=== PATIENT | female | born 1945 | race Caucasian/White ===

== ENCOUNTER 2020-06-19 18:47 | Inpatient (IN) | payer MEDICARE ==
[~2020-06-19] VITALS: Ht 152.4 cm; Wt 60.3 kg
--- NOTE | 2020-06-19 19:05 | NUR ---
HALEY Cordoba from [facility] for low O2 84% on 4L. PT NONVERBAL WITH SOB. PLACED ON O2 15L NR, SAT 95%. PT SEEN & EVAL'D BY DR. STACY. PLACED ON SHEET HANGER, SR. WILL CONT TO MONITOR.
[2020-06-19 19:35] LABS: BASOPHILS % (AUTO) 0.3 % (0.0-2.0); EOSINOPHILS % (AUTO) 0.4 % (0.0-6.0); HEMATOCRIT 26 % (33-45); HEMOGLOBIN 8.3 g/dL (11.5-14.8); MEAN CORPUSCULAR HGB CONC 31 g/dl (31.0-36.0); MEAN CORPUSCULAR VOLUME 100 fL (82-100); MONOCYTES # (AUTO) 0.4 /CMM (0.1-1.30); MONOCYTES % (AUTO) 5.4 % (2.0-12.0); NEUTROPHILS # (AUTO) 6.7 /CMM (1.8-8.9); NEUTROPHILS % (AUTO) 81.9 % (43.0-81.0); PLATELET COUNT (AUTO) 137 /CMM (150-450); RED BLOOD CELL COUNT(AUTO) 2.64 MIL/uL (4.0-5.2); WHITE BLOOD COUNT (AUTO) 8.2 K/uL (4.3-11.0)
[2020-06-19 19:36] LABS: ABG BASE EXCESS -3.8 mmol/L; ABG OXYGEN SATURATION 88.2 % (92.0-98.5); ABG PCO2 49.5 mmHg (35.0-45.0); ABG PH 7.283 (7.350-7.450); AaDO2 597.5 mmHg; COHb 0.5 % (0.5-1.5); MetHb 0.7 % (0.0-1.5); O2Hb 87.1 % (94.0-97.0); SITE, ABG Right Radial; VENT MODE, BG 15L NRB
[2020-06-19 19:57] LABS: ALANINE AMINOTRANSFERASE 44 U/L (12-78); ALBUMIN 1.8 g/dL (3.4-5.0); ALKALINE PHOSPHATASE 414 U/L (46-116); ASPARTATE AMINOTRANSFERASE 56 U/L (15-37); B-TYPE NATRIURETIC PEPTIDE 21769 PG/ML (0-125); BILIRUBIN,TOTAL 0.3 mg/dL (0.2-1.0); CALCIUM, SERUM 8.1 mg/dL (8.5-10.1); CARBON DIOXIDE 25 mmol/L (21-32); CHLORIDE 113 mmol/L (98-107); CREATININE 2.2 mg/dL (0.6-1.3); GLUCOSE 131 mg/dL (74-106); SODIUM SERUM 144 mmol/L (136-145); TOTAL PROTEIN, SERUM 5.9 g/dL (6.4-8.2); UREA NITROGEN, BLOOD 70 mg/dL (7-18)
[2020-06-19 19:59] LABS: APPEARANCE,URINE Clear (CLEAR); BILIRUBIN,URINE Negative (NEGATIVE); BLOOD, URINE Large Ery/uL (NEGATIVE); COLOR,URINE Yellow (YELLOW); KETONES,URINE Negative (NEGATIVE); LEUKOCYTE ESTERASE ,URINE Trace (NEGATIVE); NITRITE, URINE Negative (NEGATIVE); PH,URINE 5.5 (5.0-8.0); PROTEIN,URINE >=300 mg/dl (NEGATIVE); UGLUCOSE Negative (NEGATIVE); UROBILINOGEN,URINE 0.2 EU/dL (0.2)
[2020-06-19 20:00] LABS: POTASSIUM 7.3 mmol/L (3.5-5.1)
[2020-06-19] MEDS ORDERED: DEXTROSE 50%-WATER 50 ML DISP.SYRIN IV ONE (20:00)
[2020-06-19] MEDS ORDERED: CALCIUM CHLORIDE 1,000 MG/10 ML DISP.SYRIN IV ONE ×2 (20:00→23:00)
[2020-06-19] MEDS ORDERED: INSULIN REGULAR, HUMAN 100 UNIT/ML 10 ML VIAL IV ONE (20:00)
[2020-06-19] MEDS ORDERED: SODIUM POLYSTYRENE SULFONATE 15 G/60 ML BOTTLE PO ONE (20:00)
[2020-06-19] MEDS ORDERED: ALBUTEROL FS 2.5 MG/3 ML VIAL.NEB NEB ONE (20:00)
[2020-06-19] MEDS ORDERED: FUROSEMIDE 40 MG/4 ML VIAL IV ONE (20:00)
[2020-06-19] MEDS ORDERED: methylPREDNISolone SOD SUCC 125 MG/2ML VIAL IV ONE (20:00)
[2020-06-19] MEDS ORDERED: methylPREDNISolone SOD SUCC 125 MG/2ML VIAL ONE (20:02)
[2020-06-19 20:10] LABS: BACTERIA,URINE Few /HPF (None Seen); RBC,URINE 21-50 /HPF (0-2); SQUAMOUS EPITHELIAL CELL,UR Few /HPF (None Seen)
[2020-06-19 20:11] LABS: CREATINE KINASE, TOTAL 62 U/L (26-192); FERRITIN 669 ng/mL (8-388)
[2020-06-19 20:14] LABS: C-REACTIVE PROTEIN 5.1 mg/dL (0.0-0.9)
[2020-06-19] MEDS ORDERED: FUROSEMIDE 20 MG/2 ML VIAL ONE (20:18)
[2020-06-19] MEDS ORDERED: CALCIUM CHLORIDE 1,000 MG/10 ML DISP.SYRIN ONE (20:18)
[2020-06-19] MEDS ORDERED: DEXTROSE 50%-WATER 50 ML DISP.SYRIN ONE (20:18)
[2020-06-19] MEDS ORDERED: SODIUM POLYSTYRENE SULFONATE 15 G/60 ML BOTTLE ONE (20:18)
[2020-06-19] MEDS ORDERED: INSULIN REGULAR, HUMAN 100 UNIT/ML 10 ML VIAL ONE (20:19)
[2020-06-19 20:20] LABS: D-DIMER 23.47 mg/L(FEU (0.17-0.50)
--- NOTE | 2020-06-19 20:33 | NUR ---
ER MD SPOKE TO DR. LAN REGARDING PT ADMISSION.
[2020-06-19] MEDS ORDERED: ALBUTEROL FS 2.5 MG/3 ML VIAL.NEB ONE (20:57)
--- NOTE | 2020-06-19 21:08 | NUR ---
REPORT GIVEN TO SHIRLEY HERNANDEZ FOR CHANEL.
[2020-06-19 22:00] VITALS: BP 134/75
[2020-06-19] MEDS ORDERED: ALBUTEROL FS 2.5 MG/0.5 ML VIAL.NEB NEB PRN (22:00)
[2020-06-19] MEDS ORDERED: MAG HYDROX/AL HYDROX/SIMETH 30 ML UDC PO PRN (22:00)
[2020-06-19] MEDS ORDERED: HYDROCODONE/APAP 5/325MG TABLET PO PRN (22:00)
[2020-06-19] MEDS ORDERED: IPRATROPIUM NEB FS 0.5 MG/2.5 ML AMPUL.NEB NEB PRN (22:00)
[2020-06-19] MEDS ORDERED: Z GUARD REMEDY 2 OZ OINT TP PRN (22:00)
[2020-06-19] MEDS ORDERED: MAGNESIUM HYDROXIDE 30 ML UDC PO PRN (22:00)
[2020-06-19] MEDS ORDERED: ACETAMINOPHEN 325 MG TABLET PO PRN (22:00)
[2020-06-19] MEDS ORDERED: ONDANSETRON HCL/PF 4 MG/2 ML VIAL IVP PRN (22:00)
[2020-06-19] MEDS ORDERED: ZOLPIDEM TARTRATE 5 MG TABLET PO PRN (22:00)
[2020-06-19 22:28] LABS: CALCIUM, SERUM 9.3 mg/dL (8.5-10.1); CARBON DIOXIDE 27 mmol/L (21-32); CHLORIDE 113 mmol/L (98-107); CREATININE 2.3 mg/dL (0.6-1.3); GLUCOSE 90 mg/dL (74-106); SODIUM SERUM 145 mmol/L (136-145); UREA NITROGEN, BLOOD 70 mg/dL (7-18)
[2020-06-19 22:33] LABS: POTASSIUM 6.7 mmol/L (3.5-5.1)
[2020-06-19] MEDS: FUROSEMIDE 40 MG/4 ML VIAL IV SCH (22:47)
[2020-06-19 23:00] VITALS: BP 158/90
[2020-06-19] MEDS ORDERED: DEXTROSE 50%-WATER 50 ML DISP.SYRIN IVP ONE (23:00)
[2020-06-19] MEDS ORDERED: SODIUM BICARBONATE SYR 50 MEQ/50 ML DISP.SYRIN IV ONE (23:00)
[2020-06-19] MEDS ORDERED: ALBUTEROL FS 2.5 MG/3 ML VIAL.NEB NEB SCH (23:00)
[2020-06-19] MEDS ORDERED: INSULIN REGULAR, HUMAN 100 UNIT/ML 3 ML VIAL IV ONE (23:00)
[2020-06-19] MEDS ORDERED: PANT40TA49 GT (23:22)
[2020-06-19] MEDS ORDERED: MULT-754 GT (23:22)
[2020-06-19] MEDS ORDERED: LISI10TA5 GT (23:22)
[2020-06-19] MEDS ORDERED: ASCO500C16 GT (23:22)
[2020-06-19] MEDS ORDERED: SOTA80TA GT (23:22)
[2020-06-19] MEDS ORDERED: ZINC1CAP3 GT (23:22)
--- NOTE | 2020-06-19 23:30 | NUR ---
RN NOTES 2132 PM - ADMITTED PATIENT FROM ER AWAKE ALERT X 1, CONFUSED. ABLE TO VERBALIZED NAME WITH O2 @ 12 LPM VIA NRB PLACED ON ISOLATION PRECAUTION DUE TO PENDING COVID PCR. SATURATION 92% CONNECTED TO TELE MONITOR REVEALS SR HR 72. AFEBRILE TEMP 97.8. SLIGHT SOB PRESENT, BILATERAL LUNG CRACKLES WITH WHEEZING NOTED. WITH GOOD RADIAL AND DORSALIS PEDIS PULSES. PATIENT HAS GT PATENCY CHECKED, WITH MINIMAL RESIDUAL. SKIN CHECKED DONE (PHOTO IN THE CHART) MEPILEX AND BARRIER CREAM APPLIED. IV SITE ON RFA AND LFA G 18 INTACT AND PATENT WITH GOOD BLD. RETURN. BLAKE CATH SECURED OFF FROM THE FLOOR. KEPT PT CLEAN AND DRY. 2252 PM - RECEIVED A CALL FROM LAB REGARDING CRITICAL VALUES OF POTASSIUM 6.[address] SPARKS FLAVOR TANK TENDER WITH NEW ORDER NOTED AND CARRIED OUT . 2324 PM - INFORMED MD THAT THE PATIENT BS 86 MG/DL AND IF HE STILL WANT TO GIVE REGULAR INSULIN. PER MD GIVE D50% FIRST BEFORE REGULAR INSULIN 10 UNITS. ACKNOWLEDGE ORDERS.
[2020-06-20] VITALS (24 sets, daily range): BP systolic 129–153; BP diastolic 37–96
[2020-06-20] MEDS: FUROSEMIDE 40 MG/4 ML VIAL IV SCH ×2 (01:41→05:13)
[2020-06-20 04:37] LABS: BASOPHILS % (AUTO) 0.1 % (0.0-2.0); HEMATOCRIT 28 % (33-45); HEMOGLOBIN 8.9 g/dL (11.5-14.8); LYMPHOCYTES # (AUTO) 0.5 /CMM (0.8-4.8); LYMPHOCYTES % (AUTO) 7.8 % (20.0-44.0); MEAN CORPUSCULAR HGB CONC 32 g/dl (31.0-36.0); MEAN CORPUSCULAR VOLUME 98 fL (82-100); MONOCYTES # (AUTO) 0.1 /CMM (0.1-1.30); MONOCYTES % (AUTO) 0.7 % (2.0-12.0); NEUTROPHILS # (AUTO) 6.4 /CMM (1.8-8.9); NEUTROPHILS % (AUTO) 91.4 % (43.0-81.0); PLATELET COUNT (AUTO) 121 /CMM (150-450); RED BLOOD CELL COUNT(AUTO) 2.87 MIL/uL (4.0-5.2)
--- NOTE | 2020-06-20 04:50 | NUR ---
RN NOTES NOTED PATIENT IS PULLING OUT TUBES AND IV LINES TRIED HOW MANY TIMES TO INSTRUCT PATIENT DUE TO MENTAL STATUS (CONFUSED) PATIENT IS UNABLE TO FOLLOW INSTRUCTION. RESTRAINT IN PLACED AND MD AWARE. WILL CONTINUE TO MONITOR.
[2020-06-20] MEDS: methylPREDNISolone SOD SUCC 40 MG/ML VIAL IV SCH ×3 (05:13→21:03)
[2020-06-20 05:24] LABS: B-TYPE NATRIURETIC PEPTIDE 28033 PG/ML (0-125); CALCIUM, SERUM 9.7 mg/dL (8.5-10.1); CARBON DIOXIDE 26 mmol/L (21-32); CHLORIDE 113 mmol/L (98-107); CREATININE 2.3 mg/dL (0.6-1.3); GLUCOSE 117 mg/dL (74-106); MAGNESIUM 2.2 mg/dL (1.8-2.4); PHOSPHORUS 5.9 mg/dL (2.5-4.9); SODIUM SERUM 148 mmol/L (136-145); UREA NITROGEN, BLOOD 70 mg/dL (7-18)
[2020-06-20 05:27] LABS: POTASSIUM 6.4 mmol/L (3.5-5.1)
[2020-06-20 05:28] LABS: CHOLESTEROL 98 mg/dL (<200); HDL CHOLESTEROL 46 mg/dL (40-60); LDL 45 mg/dL (0-99); THYROID STIMULATING HORMONE 6.328 uIU/mL (0.358-3.74); TRIGLYCERIDES 47 mg/dL (30-150)
[2020-06-20] MEDS ORDERED: Z GUARD REMEDY 2 OZ OINT TP PRN (07:00)
--- NOTE | 2020-06-20 07:12 | NUR ---
RN NOTES PATIENT ASLEEP AT THIS TIME, DENIES PAIN. O2 10 LPM VIA SIMPLE MASK TOLERATED WELL SATURATION 96%. AFEBRILE THROUGHOUT THE SHIFT. SR ON TELE MONITOR CONTINUE ON RESTRAINT, BLAKE CATH DRAINED VIA GRAVITY . TURN AND REPOSITION Q2H AND PRN PT COMFORTABLE. IV SITE INTACT AND PATENT. GT KEPT IN PLACED AND SECURED. KEPT PT CLEAN AND DRY. ENDORSED CONTINUITY OF CARE .
--- NOTE | 2020-06-20 07:15 | NUR ---
CRAS NOTES RECEIVED PATIENT AOX1 , CONFUSED , VERBAL BUT UNCLEAR , ON 10LPM MASK SPO2 OF 97% , NO SIGNS OF DISTRESS AT THIS TIME , SR 67 ON BEDSIDE MONITOR , GT PATENT AND INTACT CLAMPED , FC DRAINING VIA GRAVITY , BILATERAL SOFT WRIST RESTRAINS IN PLACE , PIV'S PATENT AND INTACT SL , ALL NEEDS ATTENDED, WILL CONTINUE TO MONITOR
[2020-06-20] MEDS ORDERED: PANTOPRAZOLE 40 MG TABLET.DR PO SCH (07:30)
--- NOTE | 2020-06-20 08:40 | NUR ---
SENIOR PRODUCT MANAGER NOTES SPOKE WITH DR BARRAGAN , DISCUSSED PT K OF 6.4 , MD AWARE , PER MD PT IS ON BUMEX DRIP ALREADY ,
[2020-06-20] MEDS: HEPARIN SODIUM, PORCINE 5000 UNITS/1 ML VIAL SQ SCH ×2 (08:51→21:05)
[2020-06-20] MEDS ORDERED: BUMETANIDE INJ 8 MG in IV NS 0.9% 48 ML IV ONE (09:00)
[2020-06-20] MEDS ORDERED: PANTOPRAZOLE 40 MG VIAL IV SCH (09:00)
[2020-06-20 09:20] LABS: THYROID STIMULATING HORMONE 0.02 uIU/mL (0.358-3.74)
--- NOTE | 2020-06-20 10:00 | NUR ---
NOCTURNIST PHYSICIAN NOTES SEEN AND EVALUATED BY DR FELIX, DISCUSSED LABS , CHEST XRAY , PENDING PCR RESULTS , ON 10LPM SIMPER MASK SPO2 OF 95% WITH PENDING ABG , AFEBRLE , VSS , ON 8MG BUMEX MD ROSY AWARE
[2020-06-20 10:20] LABS: ABG BASE EXCESS 0.6 mmol/L; ABG OXYGEN SATURATION 86.5 % (92.0-98.5); ABG PCO2 36.4 mmHg (35.0-45.0); ABG PH 7.446 (7.350-7.450); ABG PO2 52.8 mmHg (75.0-100.0); COHb 0.4 % (0.5-1.5); O2Hb 86.2 % (94.0-97.0); SITE, ABG Right Radial; VENT MODE, BG 10L SIMPLE MASK
--- NOTE | 2020-06-20 10:40 | NUR ---
RT PER DR FELIX PATIENT WAS PLACED ON HFNC 60L 95% KATTY WELL. MAINTAIN SPO2 ABOVE 92% Addendum: 06/20/20 at 1341 by ZENAIDA THORNTON RT Amended: Links added.
[2020-06-20 10:49] LABS: MAGNESIUM 2.1 mg/dL (1.8-2.4)
--- NOTE | 2020-06-20 10:52 | NUR ---
ACCESS DEVELOPER NOTES ABG RESULTS RELAYED BY TOMAS LR MD PUT PT ON HIGH FLOW NC RT AT BEDSIDE FOR HIGH FLOW NC , PT STABLE , SPO2 OF 100% WITH NO SIGNS OF DISTRESS
[2020-06-20] MEDS ORDERED: LEVOFLOXACIN 750 MG /D5W 150ML 150 ML IV SCH (11:00)
[2020-06-20] MEDS ORDERED: LEVOFLOXACIN 750 MG /D5W 150ML 150 ML IV ONE (11:30)
[2020-06-20] MEDS: IPRATROPIUM NEB FS 0.5 MG/2.5 ML AMPUL.NEB NEB SCH ×4 (11:30→23:30)
--- NOTE | 2020-06-20 13:53 | NUR ---
RT HHN TXS HELD PER POLICY WAITING ON COVID TEST RESULTS BEFORE AEROSOLIZED TX MAY BE GIVEN
[2020-06-20 16:32] LABS: APPEARANCE,URINE SL CLOUDY (CLEAR); BILIRUBIN,URINE NEGATIVE (NEGATIVE); BLOOD, URINE LARGE Ery/uL (NEGATIVE); COLOR,URINE YELLOW (YELLOW); KETONES,URINE NEGATIVE (NEGATIVE); LEUKOCYTE ESTERASE ,URINE TRACE (NEGATIVE); NITRITE, URINE POSITIVE (NEGATIVE); PH,URINE 5.5 (5.0-8.0); PROTEIN,URINE 100 mg/dl (NEGATIVE); UGLUCOSE NEGATIVE (NEGATIVE); UROBILINOGEN,URINE 0.2 EU/dL (0.2)
[2020-06-20] MEDS ORDERED: JEVITY 1.2 CAL 1,000 ML BOTTLE GT PRN (17:00)
[2020-06-20 17:08] LABS: CARBON DIOXIDE 25 mmol/L (21-32); GLUCOSE 121 mg/dL (74-106); UREA NITROGEN, BLOOD 75 mg/dL (7-18)
[2020-06-20 17:09] LABS: CREATININE, URINE 43.2 MG/DL (30.0-125.0); URINE TOTAL PROTEIN 134.8 mg/dL (0-11.9)
[2020-06-20 17:14] LABS: CHLORIDE 113 mmol/L (98-107); CREATININE 2.4 mg/dL (0.6-1.3); POTASSIUM 6.1 mmol/L (3.5-5.1); SODIUM SERUM 148 mmol/L (136-145)
--- NOTE | 2020-06-20 17:29 | NUR ---
TENTERING MACHINE FEEDER NOTES NOTIFIED DR STEWART REGARDING REPEAT BMP RESULTS , MD AWARE , NO NEW ORDERS RECEIVED
[2020-06-20 17:42] LABS: BACTERIA,URINE 4+ /HPF (None Seen); SQUAMOUS EPITHELIAL CELL,UR 0-2 /HPF (None Seen); YEAST,URINE Few /HPF (None Seen)
[2020-06-20 18:13] LABS: EOSINOPHIL,URINE None Seen
--- NOTE | 2020-06-20 20:00 | NUR ---
Received patient awake alert oriented x1 otherwise confused.SR 80's-90's.Normotensive. With edema on both hands and feet kept elevated on pillows.Received Bumex this morning. Respiration even and unlabored.Continue on HF 60L 95% saturation 100%.GT feeding in progress with HOB elevated.No residual noted.FC to gravity drainage with clear yellow urine. Turned and repositioned.Safety precaution maintained.Bed in lowest position,locked & alarm on.Side rails up x 2.Call light within easy reach.Bilateral soft wrist restraints on.Attempted to pull out tubes and IV when released.No distress noted.Continue monitoring.
[2020-06-21] VITALS (24 sets, daily range): BP systolic 144–172; BP diastolic 75–96
--- NOTE | 2020-06-21 | NUR ---
Patient resting.VS stable.Turned and repositioned.No distress noted.
--- NOTE | 2020-06-21 02:00 | NUR ---
Patient awake.Bed bath rendered and complete linens changed.Oral care done.Turned and repositioned.
[2020-06-21] MEDS: IPRATROPIUM NEB FS 0.5 MG/2.5 ML AMPUL.NEB NEB SCH ×6 (03:30→23:51)
[2020-06-21] MEDS: methylPREDNISolone SOD SUCC 40 MG/ML VIAL IV SCH ×3 (04:49→21:31)
[2020-06-21 05:11] LABS: HEMATOCRIT 25 % (33-45); HEMOGLOBIN 7.9 g/dL (11.5-14.8); LYMPHOCYTES # (AUTO) 0.3 /CMM (0.8-4.8); LYMPHOCYTES % (AUTO) 8.1 % (20.0-44.0); MEAN CORPUSCULAR HGB CONC 31 g/dl (31.0-36.0); MEAN CORPUSCULAR VOLUME 100 fL (82-100); MONOCYTES # (AUTO) 0.1 /CMM (0.1-1.30); MONOCYTES % (AUTO) 2.4 % (2.0-12.0); NEUTROPHILS # (AUTO) 3.8 /CMM (1.8-8.9); NEUTROPHILS % (AUTO) 89.5 % (43.0-81.0); PLATELET COUNT (AUTO) 125 /CMM (150-450); RED BLOOD CELL COUNT(AUTO) 2.52 MIL/uL (4.0-5.2); WHITE BLOOD COUNT (AUTO) 4.2 K/uL (4.3-11.0)
[2020-06-21 05:47] LABS: CREATINE KINASE, TOTAL 37 U/L (26-192)
[2020-06-21 05:50] LABS: ALANINE AMINOTRANSFERASE 38 U/L (12-78); ALBUMIN 1.6 g/dL (3.4-5.0); ALKALINE PHOSPHATASE 324 U/L (46-116); ASPARTATE AMINOTRANSFERASE 40 U/L (15-37); BILIRUBIN,TOTAL 0.2 mg/dL (0.2-1.0); CALCIUM, SERUM 8.2 mg/dL (8.5-10.1); CARBON DIOXIDE 25 mmol/L (21-32); CHLORIDE 113 mmol/L (98-107); CREATININE 2.7 mg/dL (0.6-1.3); GLUCOSE 178 mg/dL (74-106); MAGNESIUM 2.1 mg/dL (1.8-2.4); PHOSPHORUS 6.8 mg/dL (2.5-4.9); POTASSIUM 5.5 mmol/L (3.5-5.1); SODIUM SERUM 148 mmol/L (136-145); TOTAL PROTEIN, SERUM 5.5 g/dL (6.4-8.2)
[2020-06-21 06:00] LABS: UREA NITROGEN, BLOOD 80 mg/dL (7-18)
--- NOTE | 2020-06-21 06:30 | NUR ---
Patient resting in no acute distress.No significant changes noted during the shift.VSS.SR. Tolerating High Flow O2 NC 60L 95%. Due medications administered.Turned and repositioned. All needs attended.
--- NOTE | 2020-06-21 07:18 | NUR ---
HOT OILER NOTES RECEIVED PATIENT AOX1 , CONFUSED ,ABLE TO FOLLOW COMMANDS WITH RESTLESSNESS , HIGH FLOW NC 60LPM SPO2 OF 99% , NO SIGNS OF DISTRESS AT THIS TIME , SR 84 ON BEDSIDE MONITOR , GT PATENT AND INTACT WITH JEVITY @ 55ML/HR TOLERATING WELL , FC DRAINING VIA GRAVITY , BILATERAL SOFT WRIST RESTRAINS IN PLACE , PIV'S PATENT AND INTACT SL , ALL NEEDS ATTENDED, WILL CONTINUE TO MONITOR
--- NOTE | 2020-06-21 07:36 | NUR ---
SUPERVISOR FINISHING ROOM NOTES ERIKA WOUND NURSE SEEN AND EVALUATED THE PT , AWAITING FOR WOUND TX ORDERS
--- NOTE | 2020-06-21 07:40 | NUR ---
WOUND CARE CONSULT: PT PRESENTS WITH SACRAL STAGE 3 ULCER AND RASH TO PERINEUM AND BUTTOCKS, PRESENT ON ADMISSION. PT NOTED TO BE VERY THIN AND BONY. PT ON G TUBE FEEDING. RECOMMEND SURGICAL CONSULT. DR CLARE ASHBY NOTIFIED OF CONSULT REQUEST. RECOMMENDATIONS MADE FOR SKIN PROTECTION AND WOUND CARE. DISCUSSED WITH NURSING STAFF. PT IS ON MEREDITH ISOFLEX LOW AIRLOSS BED. IN AGREEMENT WITH PLAN OF CARE. Addendum: 06/21/20 at 0741 by ERIKA JADE WNDNU Amended: Links added.
--- NOTE | 2020-06-21 08:00 | NUR ---
DIRECTOR OF RESOURCE DEVELOPMENT NOTES LISINOPRIL HELD IT IS NEPHROTOXIC , WILL NOTIFY PRIMARY MD ,
[2020-06-21 08:21] LABS: ABG BASE EXCESS -0.3 mmol/L; ABG OXYGEN SATURATION 98.4 % (92.0-98.5); ABG PCO2 34.8 mmHg (35.0-45.0); ABG PH 7.447 (7.350-7.450); AaDO2 520.1 mmHg; COHb 0.2 % (0.5-1.5); MetHb 0.3 % (0.0-1.5); O2Hb 97.9 % (94.0-97.0); SITE, ABG Right Brachial; VENT MODE, BG high flow NS 95%
--- NOTE | 2020-06-21 08:33 | NUR ---
EXTRUSION TECHNICIAN NOTES ABG RELAYED TO DR FELIX BY RT GUILLEN , PER MD PLACE PT ON SIMPLE MASK , RT GUILLEN AT BEDSIDE ,PLACED PT ON @ 10LPM SIMPLE MASK, SPO2 OF 94-95% WITH NO DISTRESS , WILL CONTINUE TO MONITOR
[2020-06-21] MEDS: LISINOPRIL (10MG) 10 MG TABLET GT SCH (08:39)
[2020-06-21] MEDS: MULTIVITAMINS,THERAGRAN 1 UDTAB TABLET GT SCH (08:45)
[2020-06-21] MEDS: HEPARIN SODIUM, PORCINE 5000 UNITS/1 ML VIAL SQ SCH ×2 (08:47→21:32)
[2020-06-21] MEDS ORDERED: PANTOPRAZOLE 40 MG TABLET.DR PO SCH (09:00)
[2020-06-21] MEDS ORDERED: Medication Not On Formulary EA (Multivitamins 1 TAB) GT SCH (09:00)
[2020-06-21] MEDS ORDERED: PANTOPRAZOLE 40 MG/PACK PACK GT SCH (09:00)
--- NOTE | 2020-06-21 09:00 | NUR ---
WORKER'S COMPENSATION CLAIMS EXAMINER NOTES SEEN AND EVALUATED BY DR FELIX , DISCUSSED LABS, CHEST XRAY , TOLERATING SIMPLE MASK @ 10LPM , SPO2 OF 95% VS STABLE , AFEBRILE , PLANNING TO DO HD PER CAN HANDLER , PENDING HD LINE PLACEMENT .
[2020-06-21] MEDS: CLOTRIMAZOLE 1% 15 GM TUBE TP SCH ×2 (09:10→16:23)
[2020-06-21] MEDS: HYDROGEL DRESSING 90 GM TUBE TP SCH (09:10)
--- NOTE | 2020-06-21 11:20 | NUR ---
UNIT AIDE TECH NOTES DENISA WALSH AT BEDSIDE FOR HD CATHETER INSERTION , NOTIFIED THAT FAMILY DIDN'T CONSENTED FOR HD AND TEMPORARY HEMODIALYSIS INSERTION , PER DNP DENISA HE SPOKE WITH DR PAT TOLLIVER THAT FAMILY AGREES AND CONSENTED WITH THE PROCEDURE .
--- NOTE | 2020-06-21 11:26 | NUR ---
CABLE SPLICER HELPER NOTES DR CRAWLEY AT BEDSIDE , PLACED TEMPORARY HD CATH WITH PIGTAIL @ RIGHT FEMORAL , PT TOLERATED WELL , NO ACTIVE BLEEDING NOTED , VSS , WILL CONTINUE TO MONITOR
[2020-06-21] MEDS: NEPRO 1,000 ML BOTTLE GT PRN (14:50)
--- NOTE | 2020-06-21 17:06 | NUR ---
RT NOTE PATIENT ON HIGH FLOW NASAL CANNULA WITH ORDERED SETTINGS. TOLERATING WELL. PLACED ON SIMPLE MASK 10L PER DR. FELIX ORDERS. TOLERATING WELL AT THIS TIME. MONITOR THROUGHOUT SHIFT.
--- NOTE | 2020-06-21 17:51 | NUR ---
SHIP DESIGN TEACHER NOTES PT STABLE S/PH HD , 1L OUT , NO DISTRESS , VSS STABLE ,AFEBRILE , WILL CONTINUE TO MONITOR
[2020-06-21] MEDS: HYDROGEL DRESSING 90 GM TUBE TP PRN (18:17)
--- NOTE | 2020-06-21 18:33 | NUR ---
SALESPERSON FASHION ACCESSORIES NOTES PT NOTED DESATURATING AT 87-88% WITH NO SIGNS OF DISTRESS ,PT COMFORTABLE AT THIS TIME , RT WILMER NOTIFIED , BREATHING TX GIVEN , SIMPLE MASK @ 10LPM CHANGED TO HIGH FLOW NC @ 40LPM 60% FIO2 . WILL CONTINUE TO MONITOR . Addendum: 06/21/20 at 1852 by MICHAEL PEARSON RN HIGH FLOW NC @ 50L 60 % FIO2 ,
--- NOTE | 2020-06-21 18:37 | NUR ---
GRASSLAND CONSERVATIONIST NOTES NOTIFIED MELISSA SENIOR BRANCH MANAGER REGARDING BP OF 166/62 , PT HAS NO PRN FOR HYPERTENSION , HYDRALAZINE 10MG IVP Q8 PRN FOR SBP ABOVE 160 , ORDER CARRIED OUT
[2020-06-21] MEDS ORDERED: hydrALAZINE HCL IV 20 MG VIAL IV PRN (19:00)
--- NOTE | 2020-06-21 20:00 | NUR ---
Received patient awake mumbling in no acute distress.Respiration even and unlabored.ON high Flow O2 NCat 50L 60% %.SR.HOB elevated.GT feeding in progress and no residual noted.FC to gravity drainage.Turned and repositioned to comfort.Continue monitoring.
[2020-06-21] MEDS: PANTOPRAZOLE 40 MG VIAL IV SCH (21:31)
[2020-06-22] VITALS (60 sets, daily range): BP systolic 110–175; BP diastolic 66–111
--- NOTE | 2020-06-22 | NUR ---
Incontinent of soft stools.Kept clean and dry.Bathed and complete linens changed.Turned and repositioned.Wound care done per protocol.
[2020-06-22] MEDS: IPRATROPIUM NEB FS 0.5 MG/2.5 ML AMPUL.NEB NEB SCH ×6 (02:56→22:41)
[2020-06-22] MEDS: methylPREDNISolone SOD SUCC 40 MG/ML VIAL IV SCH ×3 (04:46→21:10)
[2020-06-22 04:51] LABS: BASOPHILS % (AUTO) 0.2 % (0.0-2.0); HEMATOCRIT 22 % (33-45); LYMPHOCYTES # (AUTO) 0.4 /CMM (0.8-4.8); LYMPHOCYTES % (AUTO) 7.2 % (20.0-44.0); MEAN CORPUSCULAR HGB CONC 33 g/dl (31.0-36.0); MEAN CORPUSCULAR VOLUME 98 fL (82-100); MONOCYTES # (AUTO) 0.1 /CMM (0.1-1.30); MONOCYTES % (AUTO) 2.1 % (2.0-12.0); NEUTROPHILS # (AUTO) 4.7 /CMM (1.8-8.9); NEUTROPHILS % (AUTO) 90.5 % (43.0-81.0); PLATELET COUNT (AUTO) 122 /CMM (150-450); WHITE BLOOD COUNT (AUTO) 5.1 K/uL (4.3-11.0)
[2020-06-22 05:07] LABS: PTH, INTACT 53 pg/mL (15-65)
[2020-06-22 05:12] LABS: ALANINE AMINOTRANSFERASE 33 U/L (12-78); ALBUMIN 1.5 g/dL (3.4-5.0); ALKALINE PHOSPHATASE 285 U/L (46-116); ASPARTATE AMINOTRANSFERASE 37 U/L (15-37); BILIRUBIN,TOTAL 0.3 mg/dL (0.2-1.0); CALCIUM, SERUM 7.8 mg/dL (8.5-10.1); CARBON DIOXIDE 26 mmol/L (21-32); CHLORIDE 111 mmol/L (98-107); GLUCOSE 162 mg/dL (74-106); POTASSIUM 4.4 mmol/L (3.5-5.1); SODIUM SERUM 145 mmol/L (136-145); TOTAL PROTEIN, SERUM 5.1 g/dL (6.4-8.2); UREA NITROGEN, BLOOD 61 mg/dL (7-18)
--- NOTE | 2020-06-22 06:25 | NUR ---
Patient resting in no distress.VSS.SR.Tolerating feeding.O2 Jennifer Flow remains with the same settings.Water for the high flow drip dry and alarming.Called RT.No significant changes noted. Turned and repositioned.All needs attended.
--- NOTE | 2020-06-22 07:45 | NUR ---
PATIENT SEEN FOR INITIAL ASSESS. AWAKE AND ALERT. ANSWERS SIMPLE QUESTIONS APPROPRIATELY AND FOLLOWS SIMPLE COMMANDS. DENIES PAIN . AFEBRILE 97.8 ORALLY. SR ON MONITOR AT 60'S. REMAINS ON HIGH FLOW 60% AT 50 L. O2 SATS 91-93%. NORMOTENSIVE. WILL CONTINUE TO MONITOR CLOSELY.
--- NOTE | 2020-06-22 08:25 | NUR ---
HEMODIALYSIS STARTED BY HD RN.
[2020-06-22] MEDS: LISINOPRIL (10MG) 10 MG TABLET GT SCH (08:46)
[2020-06-22] MEDS: PANTOPRAZOLE 40 MG VIAL IV SCH ×2 (08:46→21:10)
[2020-06-22] MEDS: MULTIVITAMINS,THERAGRAN 1 UDTAB TABLET GT SCH (08:46)
[2020-06-22] MEDS: HEPARIN SODIUM, PORCINE 5000 UNITS/1 ML VIAL SQ SCH ×2 (08:52→21:11)
--- NOTE | 2020-06-22 09:00 | NUR ---
PATIENT NOTED TO BE ON RAPID AFIB 150'S DURING HD. HD NURSE SPOKE WITH DR. THOMAS AND MADE AWARE OF CHANGE OF SATUS. PER MD -GIVE 25% ALBUMIN 100 ML-HD ORDER FORM FAXED TO [facility] CALLED
--- NOTE | 2020-06-22 09:14 | NUR ---
REMAINS ON AFIB- SALLY HD RN SPEAKING TO DR. THOMAS AND PER MD TO STOP HD FOE NOW. ALBUMIN 25 % 100 ML GIVEN BY HD RN.
[2020-06-22] MEDS ORDERED: CLONIDINE HCL 0.2MG/24H PTWK 1 EA PATCH TD SCH (09:30)
[2020-06-22] MEDS: HYDROGEL DRESSING 90 GM TUBE TP SCH (09:32)
[2020-06-22] MEDS: CLOTRIMAZOLE 1% 15 GM TUBE TP SCH ×2 (09:33→17:31)
[2020-06-22] MEDS ORDERED: ALBUMIN 25% 25 GM in PREMIX 1 EA IV ONE (10:00)
--- NOTE | 2020-06-22 10:25 | NUR ---
DR. ALICE WOODS INFORMED PATIENT REMAINED TACHYCARDIC 140'S POST 1 HR DIALYSIS STOPPED. STAT EKG ORDERED. RT AWARE. WILL REFER ACCORDINGLY. PATIENT REMAINS AWAKE BUT IN NO DISTRESS.
--- NOTE | 2020-06-22 10:45 | NUR ---
EKG DONE-CONFIRMED ON AFIB WITH RVR-DR. BARRAGAN MADE AWARE. AWAITING FOR MD ORDERS.
--- NOTE | 2020-06-22 10:47 | NUR ---
RECEIVED CALL FROM DR. BARRAGAN WITH ORDERS FOR AMIODARONE BOLUS THEN DRIP.
[2020-06-22] MEDS ORDERED: AMIODARONE 150 MG in IV D5W 100 ML IV ONE (11:00)
[2020-06-22] MEDS: LEVOFLOXACIN 500 MG /D5W 100ML 500 MG in PREMIX 1 EA IV SCH (11:14)
--- NOTE | 2020-06-22 11:15 | NUR ---
AMIO BOLUS GIVEN PER PROTOCOL. AFIB WITH RVR 150'S. SBP>110.
[2020-06-22] MEDS: AMIODARONE 450 MG in IV D5W 250 ML IV PRN ×2 (11:40→18:03)
--- NOTE | 2020-06-22 14:00 | NUR ---
PATIENT REMAINED IN AND OUT AFIB RATE 100'S. CONTINUE ON AMIO DRIP AT 1 MG/HR PER PROTOCOL. BP REMAINED STABLE.
--- NOTE | 2020-06-22 15:10 | NUR ---
high flow settings below changed due to 88% spo2: flow 60 Liter O2 flow 80% Addendum: 06/22/20 at 1511 by ARTEMIO BEJARANO RT Amended: Links added.
--- NOTE | 2020-06-22 16:00 | NUR ---
PM CARE RENDERED. RIGHT FEMORAL HD CATH DRESSING CHANGE DONE. SR ON MONITOR BUT STILL NOT CONSISTENT. WITH OCCASIONAL AFIB WITH RVR 110'S. WILL CONTINUE AMIODARONE DRIP PER PROTOCOL. GT FEEDING TOLERATING WELL WITHOUT RESIDUALS.
[2020-06-22] MEDS: NEPRO 1,000 ML BOTTLE GT PRN (17:55)
--- NOTE | 2020-06-22 20:00 | NUR ---
Received patient awake verbally responsive but unclear.Confused. On High Flow via NC at 60L 80%. No respiratory distress noted.SR with Amiodarone gtt infusing at 0.5 mg/min via R femoral HD pigtail. Site intact.Normotensive.Patient with ongoing GT feeding Nepro.No residual noted.HOB elevated. FC to gravity drainage.Turned and repositioned.Continue monitoring.
--- NOTE | 2020-06-22 22:55 | NUR ---
Patient SB 59 per monitor.Amiodarone drip stopped.Normotensive.No distress noted.
[2020-06-23] VITALS (32 sets, daily range): BP systolic 117–179; BP diastolic 64–110
[2020-06-23] MEDS: IPRATROPIUM NEB FS 0.5 MG/2.5 ML AMPUL.NEB NEB SCH ×5 (02:40→19:44)
--- NOTE | 2020-06-23 03:26 | NUR ---
PATIENT RECEIVED ON HFNC 60L 80%, TOLERATING WITH NO DISTRESS/SOB NOTED. GIVEN HHN TREATMENTS WITH NO ADVERSE REACTIONS. AMBU BAG AT BEDSIDE. Addendum: 06/23/20 at 0327 by BESSIE MONK RT Amended: Links added.
[2020-06-23] MEDS: methylPREDNISolone SOD SUCC 40 MG/ML VIAL IV SCH ×3 (05:02→20:50)
[2020-06-23 06:23] LABS: BASOPHILS % (AUTO) 0.1 % (0.0-2.0); EOSINOPHILS % (AUTO) 0.1 % (0.0-6.0); HEMATOCRIT 21 % (33-45); LYMPHOCYTES # (AUTO) 0.3 /CMM (0.8-4.8); LYMPHOCYTES % (AUTO) 5.6 % (20.0-44.0); MEAN CORPUSCULAR HGB CONC 32 g/dl (31.0-36.0); MEAN CORPUSCULAR VOLUME 97 fL (82-100); MONOCYTES # (AUTO) 0.1 /CMM (0.1-1.30); NEUTROPHILS # (AUTO) 4.2 /CMM (1.8-8.9); NEUTROPHILS % (AUTO) 92.2 % (43.0-81.0); PLATELET COUNT (AUTO) 104 /CMM (150-450); RED BLOOD CELL COUNT(AUTO) 2.14 MIL/uL (4.0-5.2); WHITE BLOOD COUNT (AUTO) 4.6 K/uL (4.3-11.0)
--- NOTE | 2020-06-23 06:30 | NUR ---
Patient resting in no acute distress.VSS.SR/SB 50's.Maintained on High Flow of same settings. Well tolerated.Nutritional intake well tolerated.Oral care done.Hygienic measures rendered. Turned and repositioned.No significant changes noted.
[2020-06-23 06:40] LABS: HEMOGLOBIN 6.7 g/dL (11.5-14.8)
[2020-06-23 07:19] LABS: ALANINE AMINOTRANSFERASE 65 U/L (12-78); ALKALINE PHOSPHATASE 320 U/L (46-116); ASPARTATE AMINOTRANSFERASE 64 U/L (15-37); BILIRUBIN,TOTAL 0.5 mg/dL (0.2-1.0); CALCIUM, SERUM 7.9 mg/dL (8.5-10.1); CARBON DIOXIDE 26 mmol/L (21-32); CHLORIDE 108 mmol/L (98-107); CREATININE 1.9 mg/dL (0.6-1.3); GLUCOSE 170 mg/dL (74-106); MAGNESIUM 2.1 mg/dL (1.8-2.4); PHOSPHORUS 4.1 mg/dL (2.5-4.9); POTASSIUM 4.6 mmol/L (3.5-5.1); SODIUM SERUM 144 mmol/L (136-145); TOTAL PROTEIN, SERUM 5.2 g/dL (6.4-8.2); UREA NITROGEN, BLOOD 65 mg/dL (7-18)
--- NOTE | 2020-06-23 07:21 | NUR ---
Patient resting in no acute distress. Called Dr.Sam Palmer at 0645 for abnormal AM labs of H/H 6.04/16 but not responded.Report given to SHIRLEY Burris for continuity of care.
--- NOTE | 2020-06-23 07:30 | NUR ---
RN OPENING NOTES RECEIVED PATIENT RESTING IN BED COMFORTABLY, NO S/SX OF DISTRESS. PT IS AOX1, VERBAL (NON-AUDIBLE), AND ON BED REST. SHE IS ON HIGH-FLOW OXYGEN VIA NC, 60 LPM AND 80% FIO2, TOLERATING WELL, NO SOB OR RESP DISTRESS PRESENT AT THIS TIME. GTUBE IS PATENT AND INTACT, INFUSING NEPRO AT 35 ML/HR, TOLERATING WELL. BLAKE CATH IS PATENT AND INTACT. CRACKLED HEARD THROUGHOUT LUNG CHRIS UPON AUSCULTATION. PRECAUTIONS FOR INFLUENZA A HAS BEEN IMPLEMENTED FOR RULE OUT INFLUENZA. IV SITE ON RFA 2O G AND R FEMORAL HD CATH IS PATENT AND INTACT. SAFETY MEASURES HAVE BEEN IMPLEMENTED, CALL LIGHT IS WITHIN REACH, BED IS IN LOWEST AND LOCKED POSITION, SIDE RAILS UP X2, WILL CONTINUE TO MONITOR FOR ANY CHANGES.
[2020-06-23 07:41] LABS: LYMPHOCYTES % (MANUAL) 3 % (16-48); MONOCYTES % (MANUAL) 2 % (0-11.0); NEUTROPHILS % (MANUAL) 92 (42-76)
--- NOTE | 2020-06-23 08:00 | NUR ---
RN NOTES INFORMED MELISSA CARRILLO IRRIGATION SPECIALIST REGARDING HGB LEVEL OF 6.7, RECIEVED ORDER TO TRANSFUSE 2 UNITS PRBC AND HOLD MORNING DOSE OF HEPARIN, WILL CONTINUE TO MONITOR
[2020-06-23] MEDS: HEPARIN SODIUM, PORCINE 5000 UNITS/1 ML VIAL SQ SCH ×2 (08:44→20:56)
[2020-06-23] MEDS: MULTIVITAMINS,THERAGRAN 1 UDTAB TABLET GT SCH (08:56)
[2020-06-23] MEDS: PANTOPRAZOLE 40 MG VIAL IV SCH ×2 (08:56→20:52)
[2020-06-23] MEDS: LISINOPRIL (10MG) 10 MG TABLET GT SCH (08:57)
[2020-06-23] MEDS: CLOTRIMAZOLE 1% 15 GM TUBE TP SCH ×2 (08:59→17:32)
[2020-06-23] MEDS: HYDROGEL DRESSING 90 GM TUBE TP SCH (08:59)
[2020-06-23] MEDS: hydrALAZINE HCL 50 MG TABLET PO SCH ×3 (09:00→17:31)
[2020-06-23] MEDS: NITROGLYCERIN 30 GM TUBE TP SCH ×2 (09:56→20:58)
[2020-06-23] MEDS: DIGOXIN INJ 0.5 MG/2 ML AMPUL IV SCH ×3 (12:00→17:31)
--- NOTE | 2020-06-23 12:00 | NUR ---
1200 DOSE OF DIGOXIN HAS BEEN HELD, PT APICAL PULSE WAS 51. MD BARRAGAN MADE AWARE. WILL CONTINUE TO MONITOR
--- NOTE | 2020-06-23 13:23 | NUR ---
MULTIPLE PIV ATTEMPTS HAVE BEEN MADE TO ESTABLISH 18 G IV FOR BLOOD TRANSFUSION, MIDLINE TO BE INSERTED SOON. WILL CONTINUE TO MONITOR
--- NOTE | 2020-06-23 15:30 | NUR ---
PT HAD DIALYSIS TODAY (JUST CLEANING) AND ONE UNIT OF PRBC WITH DIALYSIS MACHINE. WHEN DIALYSIS WAS OVER, PT BECAME TACHYCARDIC AND IS UNCONTROLLED A FIB WITH HR BETWEEN 135-140. SENT MESSAGE TO DR. BARRAGAN INFORMING HIM OF CHANGES AND REQUESTED AN EKG. RECEIVED ORDER TO ADMINISTER 1200 DOSE OF DIGOXIN THAT WAS HELD. NO EKG WAS ORDERED. PT IS COMFORTABLE AND DENIES ANY DISTRESS. WILL CONTINUE TO MONITOR FOR ANY CHANGES.
--- NOTE | 2020-06-23 16:45 | NUR ---
HR NOW 94, WILL CONTINUE TO MONITOR
[2020-06-23] MEDS ORDERED: DIATR MEGLU/DIATRIZOATE SODIUM 30 ML BOTTLE (GASTROGRAPHIN) ONE (18:05)
--- NOTE | 2020-06-23 19:29 | NUR ---
KUB HAS BEEN RESULTED, GTUBE IS PATENT WITH NO EXTRAVASATION. ENDORSED TO NIGHTSHIFT RN FOR CHANEL. ONE UNIT PRBC STILL PENDING. PT NEEDS HAVE BEEN MET, SAFETY MEASURES HAVE BEEN IMPLEMENTED.
[2020-06-24] VITALS (47 sets, daily range): BP systolic 73–197; BP diastolic 49–108
[2020-06-24] MEDS: IPRATROPIUM NEB FS 0.5 MG/2.5 ML AMPUL.NEB NEB SCH ×7 (00:08→23:30)
[2020-06-24] MEDS: DIGOXIN INJ 0.5 MG/2 ML AMPUL IV SCH (00:23)
[2020-06-24 05:29] LABS: BASOPHILS % (AUTO) 0.2 % (0.0-2.0); HEMATOCRIT 35 % (33-45); HEMOGLOBIN 11.6 g/dL (11.5-14.8); LYMPHOCYTES # (AUTO) 0.2 /CMM (0.8-4.8); LYMPHOCYTES % (AUTO) 3.4 % (20.0-44.0); MEAN CORPUSCULAR HGB CONC 33 g/dl (31.0-36.0); MEAN CORPUSCULAR VOLUME 93 fL (82-100); MONOCYTES # (AUTO) 0.2 /CMM (0.1-1.30); MONOCYTES % (AUTO) 3.6 % (2.0-12.0); NEUTROPHILS % (AUTO) 92.8 % (43.0-81.0); PLATELET COUNT (AUTO) 92 /CMM (150-450); WHITE BLOOD COUNT (AUTO) 6.4 K/uL (4.3-11.0)
[2020-06-24] MEDS: methylPREDNISolone SOD SUCC 40 MG/ML VIAL IV SCH ×3 (05:36→21:06)
[2020-06-24 06:06] LABS: ALANINE AMINOTRANSFERASE 76 U/L (12-78); ALBUMIN 2.4 g/dL (3.4-5.0); ALKALINE PHOSPHATASE 350 U/L (46-116); ASPARTATE AMINOTRANSFERASE 69 U/L (15-37); BILIRUBIN,TOTAL 1.2 mg/dL (0.2-1.0); CARBON DIOXIDE 27 mmol/L (21-32); CHLORIDE 107 mmol/L (98-107); CREATININE 1.9 mg/dL (0.6-1.3); GLUCOSE 150 mg/dL (74-106); MAGNESIUM 2.2 mg/dL (1.8-2.4); PHOSPHORUS 3.7 mg/dL (2.5-4.9); SODIUM SERUM 144 mmol/L (136-145); TOTAL PROTEIN, SERUM 5.9 g/dL (6.4-8.2); UREA NITROGEN, BLOOD 64 mg/dL (7-18)
[2020-06-24 06:30] LABS: LYMPHOCYTES % (MANUAL) 11 % (16-48); MONOCYTES % (MANUAL) 1 % (0-11.0); NEUTROPHILS % (MANUAL) 88 (42-76)
--- NOTE | 2020-06-24 07:02 | NUR ---
RN notes Received patient in bed, awake with no distress noted. High flow well tolerated. Patient opens eyes with eye contact. Vital signs wnl. Kept clean and dry. Will continue to monitor.
[2020-06-24] MEDS: LISINOPRIL (10MG) 10 MG TABLET GT SCH (09:53)
[2020-06-24] MEDS: hydrALAZINE HCL 50 MG TABLET PO SCH ×3 (09:55→16:56)
[2020-06-24] MEDS: NITROGLYCERIN 30 GM TUBE TP SCH ×2 (09:56→21:07)
[2020-06-24] MEDS: MULTIVITAMINS,THERAGRAN 1 UDTAB TABLET GT SCH (10:00)
[2020-06-24] MEDS: PANTOPRAZOLE 40 MG VIAL IV SCH (10:02)
[2020-06-24] MEDS: CLOTRIMAZOLE 1% 15 GM TUBE TP SCH ×2 (10:03→16:56)
[2020-06-24] MEDS: HYDROGEL DRESSING 90 GM TUBE TP SCH (10:05)
[2020-06-24] MEDS: HEPARIN SODIUM, PORCINE 5000 UNITS/1 ML VIAL SQ SCH ×2 (10:09→21:06)
[2020-06-24 11:09] LABS: *SPE A/G RATIO 0.6 (0.7-1.7); *SPE ALBUMIN 1.8 g/dL (2.9-4.4); *SPE ALPHA-1-GLOBULIN 0.4 g/dL (0.0-0.4); *SPE ALPHA-2-GLOBULIN 0.8 g/dL (0.4-1.0); *SPE BETA GLOBULIN 0.7 g/dL (0.7-1.3); *SPE M-SPIKE Not Observed g/dL (Not Observed); *SPEGAMMA GLOBULIN 1.1 g/dL (0.4-1.8)
[2020-06-24] MEDS: LEVOFLOXACIN 500 MG /D5W 100ML 500 MG in PREMIX 1 EA IV SCH (11:24)
[2020-06-24] MEDS ORDERED: FLUCONAZOLE (100 MG) 100 MG TABLET GT SCH (13:00)
--- NOTE | 2020-06-24 17:44 | NUR ---
RN notes Alert, opens eyes with eye tracking. Able to answer simple questions. On high flow at 60%, well tolerated. No distress observed. Breathing even and unlabored. Seen by WINSOME Mejía, showed bilateral upper extremities with edema and cyanosis. SUPPOSITORY MOLDING MACHINE OPERATOR ordered stat doppler for possible DVT of the upper extremities. Noted and carried. Will continue to monitor closely.
--- NOTE | 2020-06-24 19:30 | NUR ---
SANE NURSE RCD PT W/DX CHF, PNA. NSR ON MONITOR W/ ALOT OF ARTIFACT SHOWING. ON HIFLOW 60 L 80%. PT TOLERATING WELL. GTUBE W/ NEPRO @ 35 ML/HR; TOLERATING WELL. SACRAL AND JOHN EXCORIATION NOTED. PROMISE MIDLINE PATENT AND INTACT. RFA 20 G IV FULL OF BLOOD AND NOT FLUSHING, REMOVED AT THIS TIME. R FEM HD CATH IN PLACE.
[2020-06-24] MEDS: MICAFUNGIN SODIUM 100 MG in IV NS 0.9% 100 ML IV SCH (20:04)
[2020-06-24] MEDS: MEROPENEM 500 MG in IV NS 0.9% 50 ML IV SCH (21:06)
[2020-06-24] MEDS: PANTOPRAZOLE 40 MG/PACK PACK GT SCH (21:06)
[2020-06-24] MEDS: NEPRO 1,000 ML BOTTLE GT PRN (21:07)
--- NOTE | 2020-06-24 22:00 | NUR ---
TUBERCULOSIS SPECIALIST PT GIVEN COMPLETE BED BATH; RENDERED ORAL CARE. TOLERATED WELL. BM AT THIS TIME. CONTINUE TO MONITOR.
[2020-06-24] MEDS: IV NS 0.9% 250 ML IV PRN (23:00)
[2020-06-25] VITALS (25 sets, daily range): BP systolic 82–188; BP diastolic 40–119
[2020-06-25] MEDS: IPRATROPIUM NEB FS 0.5 MG/2.5 ML AMPUL.NEB NEB SCH ×5 (03:30→23:34)
[2020-06-25 04:46] LABS: BASOPHILS % (AUTO) 0.1 % (0.0-2.0); HEMATOCRIT 31 % (33-45); HEMOGLOBIN 10.2 g/dL (11.5-14.8); LYMPHOCYTES # (AUTO) 0.1 /CMM (0.8-4.8); LYMPHOCYTES % (AUTO) 2.2 % (20.0-44.0); MEAN CORPUSCULAR HGB CONC 33 g/dl (31.0-36.0); MEAN CORPUSCULAR VOLUME 93 fL (82-100); MONOCYTES # (AUTO) 0.1 /CMM (0.1-1.30); MONOCYTES % (AUTO) 1.4 % (2.0-12.0); NEUTROPHILS # (AUTO) 6.2 /CMM (1.8-8.9); NEUTROPHILS % (AUTO) 96.3 % (43.0-81.0); PLATELET COUNT (AUTO) 77 /CMM (150-450); RED BLOOD CELL COUNT(AUTO) 3.33 MIL/uL (4.0-5.2); WHITE BLOOD COUNT (AUTO) 6.5 K/uL (4.3-11.0)
[2020-06-25] MEDS: methylPREDNISolone SOD SUCC 40 MG/ML VIAL IV SCH ×3 (05:09→20:27)
--- NOTE | 2020-06-25 06:00 | NUR ---
CRIMINOLOGY TEACHER HI FLOW DECREASED TO 40 L BY RT. CONTINUE TO MONITOR.
--- NOTE | 2020-06-25 07:20 | NUR ---
TEACHER ELEMENTARY SCHOOL NOTES RECEIVED PATIENT IN BED ASLEEP. RESPONSIVE TO VERBAL AND TACTILE STIMULI. OPENS EYES. HOB ELEVATED. REMAIN ON HI FLOW O2 AT 60% WITH 80% FIO2. GT INTACT AND PATENT KATTY NEPRO AT 35ML/HR. PROMISE MIDLINE INTACT AND PATENT. BLAKE CATHETER INTACT AND PATENT DRAINING URINE FREELY VIA BEDSIDE. BED IN LOWEST POSITION, LOCKED. BED ALARM ON. FREQUENT VISUAL CHECK DONE.
[2020-06-25] MEDS: LISINOPRIL (10MG) 10 MG TABLET GT SCH (08:08)
[2020-06-25] MEDS: hydrALAZINE HCL 50 MG TABLET PO SCH ×4 (08:08→16:24)
[2020-06-25] MEDS: NITROGLYCERIN 30 GM TUBE TP SCH ×2 (08:21→20:29)
[2020-06-25] MEDS: MEROPENEM 500 MG in IV NS 0.9% 50 ML IV SCH ×2 (08:22→21:01)
[2020-06-25] MEDS: PANTOPRAZOLE 40 MG/PACK PACK GT SCH ×2 (08:22→20:27)
[2020-06-25] MEDS: MULTIVITAMINS,THERAGRAN 1 UDTAB TABLET GT SCH (08:22)
[2020-06-25 08:26] LABS: ALANINE AMINOTRANSFERASE 27 U/L (12-78); ALKALINE PHOSPHATASE 122 U/L (46-116); ASPARTATE AMINOTRANSFERASE 34 U/L (15-37); BILIRUBIN,TOTAL 1.2 mg/dL (0.2-1.0); CALCIUM, SERUM 7.7 mg/dL (8.5-10.1); CARBON DIOXIDE 21 mmol/L (21-32); CHLORIDE 99 mmol/L (98-107); CREATININE 3.3 mg/dL (0.6-1.3); GLUCOSE 123 mg/dL (74-106); MAGNESIUM 2.6 mg/dL (1.8-2.4); POTASSIUM 5.7 mmol/L (3.5-5.1); SODIUM SERUM 137 mmol/L (136-145); TOTAL PROTEIN, SERUM 5.9 g/dL (6.4-8.2)
[2020-06-25] MEDS: CLOTRIMAZOLE 1% 15 GM TUBE TP SCH ×2 (08:29→16:26)
[2020-06-25] MEDS: HYDROGEL DRESSING 90 GM TUBE TP SCH (08:29)
[2020-06-25 08:47] LABS: PHOSPHORUS 8.9 mg/dL (2.5-4.9); UREA NITROGEN, BLOOD 100 mg/dL (7-18)
[2020-06-25] MEDS: HEPARIN SODIUM, PORCINE 5000 UNITS/1 ML VIAL SQ SCH ×2 (09:00→20:43)
[2020-06-25] MEDS: NIFEdipine (10MG) 10 MG CAPSULE PO SCH ×3 (09:44→20:28)
--- NOTE | 2020-06-25 09:56 | NUR ---
INSTRUCTOR TRAFFIC SAFETY NOTES RELAYED TO DR. FARRELL CURRENT HGB 10.2; PLT 77 AND PATIENT RECEIVED 1PRBC LAST HD ON 06/23 WITH ORDER TO HOLD HEPARIN FOR PLT UNDER 100. HEPARIN HELD TODAY.
--- NOTE | 2020-06-25 10:15 | NUR ---
HOME ADMINISTRATOR NOTES PATIENT RECEIVING HD TX.
--- NOTE | 2020-06-25 12:15 | NUR ---
FRONT LOAD TRASH TRUCK DRIVER NOTES PATIENT COMPLETED HD TX KATTY WELL. NO OUTPUT PER HD NURSE, CLEANING ONLY.
--- NOTE | 2020-06-25 16:39 | NUR ---
TOE STAPLER NOTES INFORMED DR. FARRELL RE: GT SITE LEAKING WITH ORDERS FOR GI CONSULT WITH DR. LIZ.
--- NOTE | 2020-06-25 16:42 | NUR ---
WATERPROOF COATING MACHINE TENDER NOTES DR. LIZ MADE AWARE OF CONSULT.
--- NOTE | 2020-06-25 18:30 | NUR ---
LAWNMOWER MECHANIC NOTES PATIENT RESTING COMFORTABLY IN BED. HOB ELEVATED. REMAIN ON HI FLOW O2 AT 40% WITH 80% FIO2 KATTY WELL WITHOUT RESPIRATORY DISTRESS. GT INTACT AND PATENT KATTY NEPRO AT 35ML/HR. NO RESIDUAL OBSERVED DURING THE SHIFT. DENIES ANY C/O PAIN NOR DISCOMFORT AT THIS TIME. NOTED TOWARDS ENDS OF SHIFT, PATIENT ABLE TO ANSWER SIMPLE QUESTIONS WITH DELAYED BUT CLEAR SPEECH. PROMISE MIDLINE INTACT AND PATENT. BLAKE CATHETER INTACT AND PATENT DRAINING VIA BEDSIDE. BED IN LOWEST POSITION, LOCKED. BED ALARM ON. NOTED BLOOD PRESSURE STABLE AT THIS TIME. IN NO APPARENT DISTRESS.
--- NOTE | 2020-06-25 19:30 | NUR ---
RN NOTES RECEIVED PATIENT IN BED ASLEEP, BREATHING NORMAL NO S/S OF DISTRESS NOTED. RESPONSIVE TO VERBAL AND TACTILE STIMULI. REMAINS ON HIGH FLOW O2 AT 40% WITH FIO2 80% TOLERATING WELL. TELE MONITOR SHOWS SR IN 80'S. IV SITES PROMISE MIDLINE INTACT PATENT AND FLUSHES WELL. GTF INTACT NEPRO RUNNING AT 35ML/HR NO RESIDUAL NOTED. F/C INTACT URINE RUNNING TO GRAVITY. SAFETY MEASURES IN PLACE, CALL LIGHT WITHIN REACH. WILL CONT TO MONITOR FOR CHANEL. Addendum: 06/26/20 at 0735 by COLTEN HORAN RN ERROR IN CHARTING CORRECT O2 LEVEL- HIGH FLOW 40L FIO2-80%.
[2020-06-25] MEDS: MICAFUNGIN SODIUM 100 MG in IV NS 0.9% 100 ML IV SCH (19:43)
[2020-06-26] VITALS (24 sets, daily range): BP systolic 84–152; BP diastolic 39–80
[2020-06-26] MEDS: IPRATROPIUM NEB FS 0.5 MG/2.5 ML AMPUL.NEB NEB SCH ×6 (03:08→23:38)
[2020-06-26] MEDS: NEPRO 1,000 ML BOTTLE GT PRN (03:13)
--- NOTE | 2020-06-26 04:00 | NUR ---
BED BATH GIVEN, ORAL CARE PROVIDED, WOUND TREATMENT DONE. PATIENT TOLERATED WELL.
[2020-06-26 04:45] LABS: BASOPHILS % (AUTO) 0.2 % (0.0-2.0); HEMATOCRIT 31 % (33-45); HEMOGLOBIN 10.2 g/dL (11.5-14.8); LYMPHOCYTES # (AUTO) 0.2 /CMM (0.8-4.8); LYMPHOCYTES % (AUTO) 2.1 % (20.0-44.0); MEAN CORPUSCULAR HGB CONC 33 g/dl (31.0-36.0); MEAN CORPUSCULAR VOLUME 92 fL (82-100); MONOCYTES # (AUTO) 0.1 /CMM (0.1-1.30); MONOCYTES % (AUTO) 1.4 % (2.0-12.0); NEUTROPHILS # (AUTO) 8.6 /CMM (1.8-8.9); NEUTROPHILS % (AUTO) 96.3 % (43.0-81.0); PLATELET COUNT (AUTO) 73 /CMM (150-450); RED BLOOD CELL COUNT(AUTO) 3.31 MIL/uL (4.0-5.2); WHITE BLOOD COUNT (AUTO) 8.9 K/uL (4.3-11.0)
[2020-06-26] MEDS: methylPREDNISolone SOD SUCC 40 MG/ML VIAL IV SCH ×3 (05:23→20:13)
[2020-06-26] MEDS: NIFEdipine (10MG) 10 MG CAPSULE PO SCH ×3 (05:36→20:13)
[2020-06-26 05:41] LABS: ALANINE AMINOTRANSFERASE 49 U/L (12-78); ALBUMIN 1.7 g/dL (3.4-5.0); ALKALINE PHOSPHATASE 232 U/L (46-116); ASPARTATE AMINOTRANSFERASE 43 U/L (15-37); BILIRUBIN,TOTAL 0.9 mg/dL (0.2-1.0); CALCIUM, SERUM 7.2 mg/dL (8.5-10.1); CARBON DIOXIDE 25 mmol/L (21-32); CHLORIDE 110 mmol/L (98-107); CREATININE 1.8 mg/dL (0.6-1.3); GLUCOSE 126 mg/dL (74-106); MAGNESIUM 1.9 mg/dL (1.8-2.4); PHOSPHORUS 3.2 mg/dL (2.5-4.9); POTASSIUM 3.2 mmol/L (3.5-5.1); SODIUM SERUM 145 mmol/L (136-145); TOTAL PROTEIN, SERUM 4.1 g/dL (6.4-8.2); UREA NITROGEN, BLOOD 62 mg/dL (7-18)
[2020-06-26 06:17] LABS: LYMPHOCYTES % (MANUAL) 2 % (16-48); MONOCYTES % (MANUAL) 2 % (0-11.0)
[2020-06-26 06:18] LABS: NEUTROPHILS % (MANUAL) 96 (42-76)
--- NOTE | 2020-06-26 07:25 | NUR ---
RN NOTES NO CHANGES NOTED DURING SHIFT, NO S/S OF RESPIRATORY DISTRESS NOTED. CONTINUES ON HIGH FLOW 60L FIO2 80% SATURATING WELL. GT INTACT NEPRO IS RUNNING @35ML/HR TOLERATING WELL NO RESIDUAL NOTED. PROMISE MIDLINE AND RT FEMORAL HD CATH INTACT NO S/S OF BLEEDING NO SWELLING NOTED. F/C INTACT DRAINING WELL. KEPT CLEAN DRY AND COMFORTABLE. ALL NEEDS ARE ATTENDED. CALL LIGHT WITHIN REACH. ENDORSE TO AM NURSE FOR CHANEL. Addendum: 06/26/20 at 0736 by COLTEN HORAN RN ERROR IN CHARTING CORRECT O2 LEVEL- ON HIGH FLOW 40L FIO2-80%.
[2020-06-26] MEDS ORDERED: POTASSIUM CHLORIDE 20 MEQ POWDER PACKET GT SCH (08:00)
--- NOTE | 2020-06-26 08:00 | NUR ---
RN OPENING NOTE: RECEIVED PATIENT IN BED THIS MORNING. PATIENT IS AAOX1, ABLE TO FOLLOW SIMPLE COMMANDS. SATING WELL ON HIGH FLOW. SR IN THE 60S ON THE MONITOR. GTF, NO RESIDUAL. FC DRAINING URINE. WOUND CARE PER ORDERS. KAMILA MIDLINE C/D/I, FLUSHING WELL, NO SIGNS OF COMPLICATIONS NOTED. R FEMORAL HD CATH, C/D/I. SAFETY MEASURES IMPLEMENTED, BED IN LOWEST POSITION, LOCKED, SIDE RAILS UP, CALL LIGHT WITHIN REACH. WILL CONTINUE TO MONITOR PATIENT FOR CHANGES.
--- NOTE | 2020-06-26 08:38 | NUR ---
fio2 titrate down from 80% to 60% per dr. john. Addendum: 06/26/20 at 0840 by ARTEMIO BEJARANO RT Amended: Links added.
[2020-06-26] MEDS: PANTOPRAZOLE 40 MG/PACK PACK GT SCH ×2 (08:49→20:13)
[2020-06-26] MEDS: MULTIVITAMINS,THERAGRAN 1 UDTAB TABLET GT SCH (08:50)
[2020-06-26] MEDS: hydrALAZINE HCL 50 MG TABLET PO SCH ×3 (08:50→17:54)
[2020-06-26] MEDS: MEROPENEM 500 MG in IV NS 0.9% 50 ML IV SCH ×2 (08:50→20:55)
[2020-06-26] MEDS: HEPARIN SODIUM, PORCINE 5000 UNITS/1 ML VIAL SQ SCH (08:51)
[2020-06-26] MEDS: HYDROGEL DRESSING 90 GM TUBE TP SCH (08:51)
[2020-06-26] MEDS: CLOTRIMAZOLE 1% 15 GM TUBE TP SCH ×2 (08:52→17:54)
[2020-06-26] MEDS: LISINOPRIL (10MG) 10 MG TABLET GT SCH (08:53)
[2020-06-26] MEDS: NITROGLYCERIN 30 GM TUBE TP SCH ×2 (08:53→20:13)
--- NOTE | 2020-06-26 18:51 | NUR ---
RN CLOSING NOTE: PATIENT REMAINS IN BED. NO SIGNS OF ACUTE DISTRESS NOTED AT THIS TIME. SR IN THE 60S ON THE MONITOR. SAFETY MEASURES IMPLEMENTED, BED IN LOWEST POSITION, LOCKED, SIDE RAILS UP, CALL LIGHT WITHIN REACH. WILL ENDORSE TO ONCOMING SHIFT RN FOR CONTINUITY OF CARE.
--- NOTE | 2020-06-26 19:05 | NUR ---
RN OPENING NOTES RECEIVED PT IN BED IN HIGH CARTER'S POSITION. PT IS ON FIFLOW 60% FIO2 AND 40L O2. PT IS ABLE TO FOLLOW SIMPLE COMMANDS. RESPIRATIONS EVEN AND UNLABORED. REPOSITIONED PATIENT. NO INDICATION OF PAIN OR DISCOMFORT. SR ON THE BEDSIDE MONITOR. PT WITH PROMISE MIDLINE WITH SITE WITHOUT SIGNS OF COMPLICATIONS. BLAKE CATHETER PATENT AND IN PLACE DRAINING CLEAR YELLOW URINE. GT WITH TUBE FEEDING RUNNING ORDERED. 10ML OF GASTRIC RESIDUAL NOTED. FLUSHED AND PATENT. RIGHT FEMORAL PIGTAIL HD CATH INTACT. SAFETY MEASURES IN PLACE, CALL LIGHT WITHIN REACH, WILL MONITOR PATIENT.
[2020-06-26] MEDS: MICAFUNGIN SODIUM 100 MG in IV NS 0.9% 100 ML IV SCH (19:48)
[2020-06-27] VITALS (26 sets, daily range): BP systolic 89–165; BP diastolic 34–91
--- NOTE | 2020-06-27 | NUR ---
RN NOTE BED BATH AND AM CARE COMPLETED. PT TOLERATED WELL. WOUND CARE DONE ORDERED. PT DENIES PAIN OR DISCOMFORT. VITAL SIGNS STABLE. RESUMED GT FEEDING AT 35ML/HOUR. MINIMAL GASTRIC RESIDUAL NOTED. WILL CONTINUE TO MONITOR PATIENT.
[2020-06-27] MEDS: methylPREDNISolone SOD SUCC 40 MG/ML VIAL IV SCH ×3 (05:00→20:46)
[2020-06-27] MEDS: NIFEdipine (10MG) 10 MG CAPSULE PO SCH ×3 (05:00→20:46)
[2020-06-27] MEDS: IPRATROPIUM NEB FS 0.5 MG/2.5 ML AMPUL.NEB NEB SCH ×6 (05:54→23:39)
--- NOTE | 2020-06-27 07:01 | NUR ---
RN CLOSING NOTES NO ACUTE CHANGES OBSERVED OVERNIGHT. PT IN BED IN HIGH CARTER'S POSITION. ABLE TO FOLLOW SIMPLE COMMANDS. DENIES PAIN OR DISCOMFORT. VITAL SIGNS STABLE. WOUND CARE RENDERED ORDERED. SR ON THE BEDSIDE MONITOR. ON HI FLOW 60% FIO2 AND 40L OF O2 PER RESPIRATORY. RESPIRATIONS EVEN AND UNLABORED. BLAKE CATHETER PATENT AND IN PLACE DRAINING URINE. GT PATENT RUNNING TUBE FEEDING ORDERED WITH NO RESIDUAL NOTED. ALL DUE MEDICATIONS ADMINISTERED WITHOUT PROBLEM, ALL NEEDS MET AND ATTENDED TOCALL NARAYAN WITHIN REACH, SAFETY MEASURES IN PLACE, WILL ENDORSE TO MORNING RN FOR CONTINUATION OF CARE.
--- NOTE | 2020-06-27 07:45 | NUR ---
WOUND CARE FOLLOW UP: PT SEEN FOR RE-EVALUATION OF SACRAL WOUND PER RN REQUEST. SACRAL STAGE 3 ULCER SHOWS NO SIGN OF INFECTION OR NECROTIC TISSUE NOTED. WOUND IS PINK IN COLOR. RASH IS IMPROVING. RECOMMEND CONTINUE PRESENT TREATMENT. PT FOLLOWED BY SURGICAL TEAM. WILL SEE PRN. COSTA IN AGREEMENT WITH PLAN OF CARE.
--- NOTE | 2020-06-27 08:30 | NUR ---
RN OPENING NOTE: RECEIVED PATIENT IN BED THIS MORNING. PATIENT IS AAOX1, RESPONDS TO SIMPLE QUESTIONS. SATING WELL ON CURRENT HI FLOW SETTINGS. NO SIGNS OF ACUTE DISTRESS NOTED AT THIS TIME. SR IN THE 60S NOTED ON THE MONITOR. FC DRAINING MINIMAL URINE. WOUND CARE PER ORDERS. GTF NEPRO @ 35CC/HR, NO RESIDUAL. PROMISE MIDLINE, C/D/I, FLUSHING WELL, NO SIGNS OF COMPLICATIONS NOTED. R FEMORAL HD CATH, C/D/I. SAFETY MEASURES IMPLEMENTED, BED IN LOWEST POSITION, LOCKED, SIDE RAILS UP, CALL LIGHT WITHIN REACH. WILL CONTINUE TO MONITOR PATIENT FOR CHANGES.
[2020-06-27] MEDS: LISINOPRIL (10MG) 10 MG TABLET GT SCH (09:03)
[2020-06-27] MEDS: MULTIVITAMINS,THERAGRAN 1 UDTAB TABLET GT SCH (09:03)
[2020-06-27] MEDS: PANTOPRAZOLE 40 MG/PACK PACK GT SCH ×2 (09:03→20:46)
[2020-06-27] MEDS: HYDROGEL DRESSING 90 GM TUBE TP SCH (09:04)
[2020-06-27] MEDS: MEROPENEM 500 MG in IV NS 0.9% 50 ML IV SCH ×2 (09:04→20:59)
[2020-06-27] MEDS: hydrALAZINE HCL 50 MG TABLET PO SCH ×3 (09:04→16:23)
[2020-06-27] MEDS: CLOTRIMAZOLE 1% 15 GM TUBE TP SCH ×2 (09:05→16:23)
[2020-06-27] MEDS: NITROGLYCERIN 30 GM TUBE TP SCH ×2 (09:05→20:46)
--- NOTE | 2020-06-27 13:10 | NUR ---
UPDATED DAUGHTER IN LAW (ROSANGELA) ON PATIENT'S STATUS
--- NOTE | 2020-06-27 16:06 | NUR ---
RECEIVED CONSENT FOR US GUIDED LEFT LUNG THORACENTESIS FROM PATIENT'S SON CARISSA HINES
--- NOTE | 2020-06-27 19:20 | NUR ---
RN OPENING NOTES RECEIVED PT AWAKE AND ALERT/ORIENTED X 1 IN SEMI CARTER'S POSITION. ABLE TO FOLLOW SIMPLE COMMANDS. ON HIFLOW AT 60% FIO2 AND 50L OF O2. RESPIRATIONS EVEN AND UNLABORED. DENIES PAIN OR DISCOMFORT AT THIS TIME. VITAL SIGNS STABLE. SR ON THE BEDSIDE MONITOR. BLAKE CATHETER PATENT AND IN PLACE DRAINING CLEAR YELLOW URINE. WITH GT FEEDING NEPRO AT 35ML/HOUR. NO RESIDUAL NOTED. FLUSHED. PROMISE MIDLINE PATENT AND INTACT. R FEMORAL HD CATH INTACT. PT REPOSITIONED TOLERATED. CALL LIGHT WITHIN REACH, SAFETY MEASURES IN PLACE, WILL MONITOR.
[2020-06-27] MEDS: MICAFUNGIN SODIUM 100 MG in IV NS 0.9% 100 ML IV SCH (19:43)
[2020-06-27] MEDS: NEPRO 1,000 ML BOTTLE GT PRN (23:01)
[2020-06-28] VITALS (42 sets, daily range): BP systolic 101–166; BP diastolic 49–94
--- NOTE | 2020-06-28 02:00 | NUR ---
RN NOTE RT RAINARD AT BEDSIDE AND LOWERED HI FLOW SETTINGS FOLLOWS. 40L AND FIO2 50%. VITAL SIGNS WNL, RESPIRATIONS EVEN AND UNLABORED, WILL CONTINUE TO MONITOR PATIENT.
[2020-06-28] MEDS: IPRATROPIUM NEB FS 0.5 MG/2.5 ML AMPUL.NEB NEB SCH ×6 (03:49→23:34)
--- NOTE | 2020-06-28 04:00 | NUR ---
RN NOTE BED BATH AND AM CARE COMPLETED. PT TOLERATED WELL. RESUMED TUBE FEEDING TOLERATED. PT ON HIFLOW. VITAL SIGNS STABLE. PT DENIES PAIN OR DISCOMFORT AT THIS TIME. WILL CONTINUE TO MONITOR.
[2020-06-28] MEDS: methylPREDNISolone SOD SUCC 40 MG/ML VIAL IV SCH ×3 (04:41→20:29)
[2020-06-28] MEDS: NIFEdipine (10MG) 10 MG CAPSULE PO SCH ×4 (04:42→20:30)
--- NOTE | 2020-06-28 06:36 | NUR ---
RN NOTES PT SLEEPING IN BED IN SEMI CARTER'S POSITION. NO SIGNS OR SYMPTOMS OF PAIN OR DISCOMFORT. ON HIFLOW AT 50% FIO2 AND 40L OF O2. RESPIRATIONS EVEN AND UNLABORED. VITAL SIGNS STABLE. SR ON THE BEDSIDE MONITOR. BLAKE CATHETER PATENT AND IN PLACE DRAINING CLEAR YELLOW URINE. WITH GT FEEDING NEPRO AT 35ML/HOUR. NO RESIDUAL NOTED. FLUSHED. PROMISE MIDLINE PATENT AND INTACT. R FEMORAL HD CATH INTACT. PT REPOSITIONED TOLERATED. WOUND CARE DONE ORDERED, ALL DUE MEDICATIONS ADMINISTERED, ALL NEEDS MET AND ATTENDED TO, CALL LIGHT WITHIN REACH, SAFETY MEASURES IN PLACE, WILL ENDORSE TO MORNING RN FOR CONTINUATION OF CARE.
--- NOTE | 2020-06-28 07:10 | NUR ---
RN NOTES RECEIVED PT ON BED ,A/Ox1, FOLLOWS SIMPLE COMMAND, ON HI FLOW O2 , RESPIRATIONS EVEN AND UNLABORED. DENIES PAIN OR DISCOMFORT AT THIS TIME. VITAL SIGNS STABLE. SR ON THE BEDSIDE MONITOR. BLAKE CATHETER PATENT AND IN PLACE DRAINING CLEAR YELLOW URINE. WITH GT FEEDING NEPRO AT 50 ML/HOUR. NO RESIDUAL NOTED. FLUSHED. L UPPER ARM MIDLINE PATENT AND INTACT. R FEMORAL HD CATH INTACT. PT REPOSITIONED TOLERATED. CALL LIGHT WITHIN REACH, SR UP x3, CALL LIGHT WITHIN EASY REACH, SAFETY MEASURES IN PLACE, WILL CONTINUE TO MONITOR.
[2020-06-28 07:55] LABS: CALCIUM, SERUM 8.3 mg/dL (8.5-10.1); CARBON DIOXIDE 26 mmol/L (21-32); CHLORIDE 105 mmol/L (98-107); CREATININE 2.2 mg/dL (0.6-1.3); GLUCOSE 167 mg/dL (74-106); POTASSIUM 4.6 mmol/L (3.5-5.1); SODIUM SERUM 139 mmol/L (136-145)
[2020-06-28 07:57] LABS: BASOPHILS % (AUTO) 0.1 % (0.0-2.0); EOSINOPHILS % (AUTO) 0.3 % (0.0-6.0); HEMATOCRIT 35 % (33-45); HEMOGLOBIN 11.4 g/dL (11.5-14.8); LYMPHOCYTES # (AUTO) 0.3 /CMM (0.8-4.8); LYMPHOCYTES % (AUTO) 1.8 % (20.0-44.0); MEAN CORPUSCULAR HGB CONC 32 g/dl (31.0-36.0); MEAN CORPUSCULAR VOLUME 95 fL (82-100); MONOCYTES # (AUTO) 0.2 /CMM (0.1-1.30); MONOCYTES % (AUTO) 1.1 % (2.0-12.0); NEUTROPHILS # (AUTO) 14.4 /CMM (1.8-8.9); NEUTROPHILS % (AUTO) 96.7 % (43.0-81.0); PLATELET COUNT (AUTO) 72 /CMM (150-450); WHITE BLOOD COUNT (AUTO) 14.9 K/uL (4.3-11.0)
[2020-06-28 08:10] LABS: UREA NITROGEN, BLOOD 91 mg/dL (7-18)
[2020-06-28 08:16] LABS: PHOSPHORUS 3.3 mg/dL (2.5-4.9)
[2020-06-28 08:17] LABS: ALANINE AMINOTRANSFERASE 50 U/L (12-78); ALBUMIN 1.8 g/dL (3.4-5.0); ALKALINE PHOSPHATASE 227 U/L (46-116); ASPARTATE AMINOTRANSFERASE 52 U/L (15-37); MAGNESIUM 2.1 mg/dL (1.8-2.4)
[2020-06-28 08:18] LABS: TOTAL PROTEIN, SERUM 4.7 g/dL (6.4-8.2)
[2020-06-28] MEDS: MEROPENEM 500 MG in IV NS 0.9% 50 ML IV SCH ×2 (08:41→20:28)
[2020-06-28] MEDS: hydrALAZINE HCL 50 MG TABLET PO SCH ×3 (08:43→18:17)
[2020-06-28] MEDS: PANTOPRAZOLE 40 MG/PACK PACK GT SCH ×2 (08:44→20:29)
[2020-06-28] MEDS: MULTIVITAMINS,THERAGRAN 1 UDTAB TABLET GT SCH (08:44)
[2020-06-28] MEDS: LISINOPRIL (10MG) 10 MG TABLET GT SCH (08:44)
[2020-06-28] MEDS: NITROGLYCERIN 30 GM TUBE TP SCH ×2 (08:45→20:34)
[2020-06-28] MEDS: HYDROGEL DRESSING 90 GM TUBE TP SCH (08:45)
[2020-06-28] MEDS: CLOTRIMAZOLE 1% 15 GM TUBE TP SCH ×2 (08:46→17:00)
--- NOTE | 2020-06-28 10:30 | NUR ---
RN NOTES LEFT LUNG THORACENTESIS DONE BY RADIOLOGIST AT THE BEDSIDE . PT TOLERATED WELL, VSS STABLE , 810 CC PLEURAL FLUID SENT TO THE LAB PER MD ORDER .
--- NOTE | 2020-06-28 13:46 | NUR ---
RN NOTES PT HAS GT , PROCARDIA CAPSULES NOT GIVEN, MD AND PHARMACY NOTIFED , NO NEW ORDER GIVEN.
[2020-06-28] MEDS ORDERED: ALBUMIN 25% 25 GM in PREMIX 1 EA IV PRN (15:30)
[2020-06-28] MEDS: ALBUMIN 25% 25 GM in PREMIX 1 EA IV PRN (16:04)
--- NOTE | 2020-06-28 17:05 | NUR ---
RN NOTES PT RECEIVING HD AT THIS TIME, VSS STABLE, CONTINUE TO MONITOR .
--- NOTE | 2020-06-28 18:31 | NUR ---
RN NOTES PT REMAINS ON HIGH FLOW O2 , O2 SAT WNL, PT RECEIVED HD ON THIS SHIFT, TOLERATING WELL, NO DISTRESS NOTED, SR UP x3 , CALL LIGHT WITHIN EASY REACH, BED LOCKED AND IN LOWEST POSITION, WILL ENDORSE TO SHEET METAL WORKER SUPERVISOR NURSE FOR CONTINUITY OF CARE.
[2020-06-28] MEDS: MICAFUNGIN SODIUM 100 MG in IV NS 0.9% 100 ML IV SCH (19:30)
--- NOTE | 2020-06-28 19:30 | NUR ---
RN OPENING NOTE RECEIVED PT IN BED, CONFUSED, BUT FOLLOWS SIMPLE COMMANDS. PATIENT IN NO S/SX OF ACUTE DISTRESS AT THIS TIME. PATIENT'S BREATHING APPEARS LABORED. PATIENT IS ON 40L OXYGEN VIA HIGH FLOW MASK, FIO2 AT 40%; TOLERATING WELL. PATIENT ON BEDSIDE MONITOR READING AFIB, HR IS 134. NOTED IV SITE AT PROMISE MIDLINE WITH NS AT TKO, AND RIGHT FEMORAL PIGTAIL HD CATH; PATENT AND FLUSHING WELL, NO S/S OF INFECTION NOTED. NOTED GTUBE INTACT, NO RESIDUAL, PLACEMENT WAS CHECKED, GASTRIC CONTENTS NOTED ON ASPIRATION, GURGLING SOUND HEARD ON AUSCULTATION, ONGOING TUBE FEEEDING OF NEPRO AT 35 ML/HR, TOLERATING WELL. BLAKE CATH CONNECTED TO URINE BAG IN PLACE, DRAINING TO A CLEAR YELLOWISH URINE, MINIMAL OUTPUT NOTED. SAFETY MEASURES HAVE BEEN PROVIDED AND IMPLEMENTED. PATIENT BED ALARM IS ON. HEAD OF BED ELEVATED. BED IS LOCKED, IN LOWEST POSITION AND SIDE RAILS UP. CALL LIGHT WITHIN REACH OF THE PATIENT. WILL CONTINUE TO MONITOR AND REASSESS FOR ANY CHANGES.
[2020-06-28] MEDS: NEPRO 1,000 ML BOTTLE GT PRN (23:19)
[2020-06-29] VITALS (44 sets, daily range): BP systolic 90–167; BP diastolic 42–103
[2020-06-29] MEDS: IPRATROPIUM NEB FS 0.5 MG/2.5 ML AMPUL.NEB NEB SCH ×7 (03:50→23:30)
[2020-06-29] MEDS: methylPREDNISolone SOD SUCC 40 MG/ML VIAL IV SCH ×3 (05:58→21:08)
[2020-06-29] MEDS: NIFEdipine (10MG) 10 MG CAPSULE PO SCH ×3 (05:58→21:09)
--- NOTE | 2020-06-29 06:45 | NUR ---
RN NOTE NOTED IV LINE AT PROMISE PULLED OUT. REINSERTED ANOTHER IV LINE AT LEFT WRIST G20, FLUSHING WELL. WILL CONT TO MONITOR.
--- NOTE | 2020-06-29 07:10 | NUR ---
RN NOTES RECEIVED PT ON BED ,A/Ox1, FOLLOWS SIMPLE COMMAND, ON HI FLOW O2 , 20L, 30% RESPIRATIONS EVEN AND UNLABORED. O2 SAT WNL, DENIES PAIN OR DISCOMFORT AT THIS TIME. VITAL SIGNS STABLE. SR ON THE BEDSIDE MONITOR. BLAKE CATHETER PATENT AND IN PLACE DRAINING SMALL AMOUNT OF ROEL COLOR URINE, WITH GT FEEDING NEPRO AT 50 ML/HOUR. NO RESIDUAL NOTED. FLUSHED. LEFT HAND IV SITE G 20 CLEAN,DRY AND INTACT, R FEMORAL HD CATH INTACT. PT REPOSITIONED TOLERATED. CALL LIGHT WITHIN REACH, SR UP x3, CALL LIGHT WITHIN EASY REACH, SAFETY MEASURES IN PLACE, WILL CONTINUE TO MONITOR.
--- NOTE | 2020-06-29 07:25 | NUR ---
RN CLOSING NOTE PATIENT REMAINS IN ROOM. CONFUSED BUT ABLE TO FOLLOW SIMPLE COMMANDS. NO SIGNS OF RESPIRATORY DISTRESS. NEW IV LINE AT L WRIST WITH NS AT TKO. GTUBE STILL IN PLACE, PLACEMENT CHECKED, TUBE FEEDING OF NEPRO REGULATED AT 35 ML/HR, TOLERATING WELL, ASPIRATION PRECAUTIONS MAINTAINED. SAFETY MEASURES IMPLEMENTED, BED IN LOWEST POSITION, LOCKED, SIDE RAILS UP, CALL LIGHT WITHIN REACH. ALL NEEDS AND ORDERS ADDRESSED DURING THE SHIFT. ALL DUE MEDS GIVEN ORDERED & SCHEDULED. .PATIENT KEPT CLEAN AND COMFORTABLE WITHIN THE SHIFT. ENDORSED TO MAMIE WATSON FOR CONTINUATION OF CARE.
[2020-06-29] MEDS: MULTIVITAMINS,THERAGRAN 1 UDTAB TABLET GT SCH (08:32)
[2020-06-29] MEDS: PANTOPRAZOLE 40 MG/PACK PACK GT SCH ×2 (08:32→21:08)
[2020-06-29] MEDS: hydrALAZINE HCL 50 MG TABLET PO SCH ×3 (08:33→16:09)
[2020-06-29] MEDS: LISINOPRIL (10MG) 10 MG TABLET GT SCH (08:33)
[2020-06-29] MEDS: MEROPENEM 500 MG in IV NS 0.9% 50 ML IV SCH ×2 (08:33→21:07)
[2020-06-29] MEDS: HYDROGEL DRESSING 90 GM TUBE TP SCH (08:34)
[2020-06-29] MEDS: CLOTRIMAZOLE 1% 15 GM TUBE TP SCH ×2 (08:34→16:10)
[2020-06-29 08:46] LABS: EOSINOPHILS % (AUTO) 0.4 % (0.0-6.0); HEMATOCRIT 34 % (33-45); LYMPHOCYTES # (AUTO) 0.3 /CMM (0.8-4.8); LYMPHOCYTES % (AUTO) 1.9 % (20.0-44.0); MEAN CORPUSCULAR HGB CONC 32 g/dl (31.0-36.0); MEAN CORPUSCULAR VOLUME 96 fL (82-100); MONOCYTES # (AUTO) 0.5 /CMM (0.1-1.30); MONOCYTES % (AUTO) 2.9 % (2.0-12.0); NEUTROPHILS % (AUTO) 94.8 % (43.0-81.0); PLATELET COUNT (AUTO) 71 /CMM (150-450); RED BLOOD CELL COUNT(AUTO) 3.57 MIL/uL (4.0-5.2); WHITE BLOOD COUNT (AUTO) 15.8 K/uL (4.3-11.0)
[2020-06-29 08:58] LABS: CARBON DIOXIDE 26 mmol/L (21-32); CHLORIDE 104 mmol/L (98-107); CREATININE 1.9 mg/dL (0.6-1.3); GLUCOSE 154 mg/dL (74-106); SODIUM SERUM 138 mmol/L (136-145); UREA NITROGEN, BLOOD 78 mg/dL (7-18)
--- NOTE | 2020-06-29 10:10 | NUR ---
RN NOTES PT OFF HIGH FLOW AND ON 4L O2 N/C PER DR LLANOS ORDER . PT BECAME TACHYPNEIC AND RESTLESS . PT PLACED BACK ON 32% , 10 LITER ON HIGH FLOW O2 PER DR LLANOS ORDER . CONTINUE TO MONITOR .
[2020-06-29] MEDS: NITROGLYCERIN 30 GM TUBE TP SCH ×2 (10:53→21:09)
[2020-06-29 10:55] LABS: LYMPHOCYTES % (MANUAL) 3 % (16-48); MONOCYTES % (MANUAL) 2 % (0-11.0); NEUTROPHILS % (MANUAL) 95 (42-76)
--- NOTE | 2020-06-29 12:34 | NUR ---
RN NOTES OK TO OPEN PROCARDIA CAPSULE AND GIVE IT VIA GT PER PHARMACY.
[2020-06-29] MEDS: NEPRO 1,000 ML BOTTLE GT PRN (17:48)
--- NOTE | 2020-06-29 18:00 | NUR ---
RN NOTES PT RECEIVED HD ON THIS SHIFT, ,TOLERATED WELL , ON 20 L AND 32% HIGH FLOW O2 , O2 SAT WNL, NO SOB NOTED , TOLERATING TF AT 35 CC/HR WELL, NO SIGNIFICANT CHANGES NOTED ON THIS SHIFT , SR UP x3, CALL LIGHT WITHIN EASY REACH, BED LOCKED AND IN LOWEST POSITION, WILL ENDORSE TO SPRINKLER TENDER NURSE FOR CONTINUITY OF CARE .
--- NOTE | 2020-06-29 19:20 | NUR ---
PEDIATRICIAN/MEDICAL DOCTOR NOTE RECEIVED PATIENT IN BED RESTING WITH HOB ELEVATED. PATIENT IS 74 Y/O FEMALE WITH DX OF CHF, HYPERKALEMIA, AND RESPIRATORY FAILURE. FULL CODE. ON CONTACT ISOLATION FOR ESBL IN URINE. PATIENT IS A/O X1, ABLE TO FOLLOW SIMPLE COMMANDS. SPEECH IS UNCLEAR. ON HIGH FLOW O2 AT 20 LITERS, FIO2 40%. O2 SAT IS 93% AT THIS TIME. IV SITE ON RIGHT HAND, LEFT WRIST, AND RIGHT FEMORAL PICC TAIL ARE CLEAN, DRY, AND PATENT. TKO RUNNING AT 10 ML/HR. ON GT FEEDING NEPHRO RUNNING AT 35 ML/HR, 10 ML RESIDUAL NOTED. PATIENT HAS BLAKE CATH, URINE IS CLEAR AND ROEL IN COLOR. IN NO APPARENT DISTRESS NOTED AT THIS TIME. NO COMPLAINTS OF ANY PAIN. BED IS LOWERED AND LOCKED FOR SAFETY. BED ALARM TURNED ON. WILL CONTINUE TO MONITOR.
[2020-06-29] MEDS: MICAFUNGIN SODIUM 100 MG in IV NS 0.9% 100 ML IV SCH (19:33)
[2020-06-30] VITALS (29 sets, daily range): BP systolic 93–149; BP diastolic 44–81
--- NOTE | 2020-06-30 01:05 | NUR ---
GAMB CUTTER NOTE PATIENT IS RESTING COMFORTABLY AT THIS TIME. NO APPARENT DISTRESS NOTED. WILL CONTINUE TO MONITOR.
[2020-06-30] MEDS: methylPREDNISolone SOD SUCC 40 MG/ML VIAL IV SCH ×3 (04:24→20:56)
[2020-06-30] MEDS: NIFEdipine (10MG) 10 MG CAPSULE PO SCH ×3 (04:25→21:00)
[2020-06-30] MEDS: IPRATROPIUM NEB FS 0.5 MG/2.5 ML AMPUL.NEB NEB SCH ×5 (04:27→20:20)
[2020-06-30 05:24] LABS: CARBON DIOXIDE 29 mmol/L (21-32); CHLORIDE 103 mmol/L (98-107); GLUCOSE 128 mg/dL (74-106); SODIUM SERUM 138 mmol/L (136-145); UREA NITROGEN, BLOOD 75 mg/dL (7-18)
[2020-06-30 05:37] LABS: BASOPHILS % (AUTO) 0.2 % (0.0-2.0); EOSINOPHILS % (AUTO) 0.1 % (0.0-6.0); HEMATOCRIT 31 % (33-45); HEMOGLOBIN 10.1 g/dL (11.5-14.8); LYMPHOCYTES # (AUTO) 0.4 /CMM (0.8-4.8); LYMPHOCYTES % (AUTO) 2.2 % (20.0-44.0); MEAN CORPUSCULAR HGB CONC 32 g/dl (31.0-36.0); MEAN CORPUSCULAR VOLUME 95 fL (82-100); MONOCYTES # (AUTO) 0.8 /CMM (0.1-1.30); MONOCYTES % (AUTO) 4.4 % (2.0-12.0); NEUTROPHILS # (AUTO) 16.3 /CMM (1.8-8.9); NEUTROPHILS % (AUTO) 93.1 % (43.0-81.0); PLATELET COUNT (AUTO) 71 /CMM (150-450); RED BLOOD CELL COUNT(AUTO) 3.29 MIL/uL (4.0-5.2); WHITE BLOOD COUNT (AUTO) 17.5 K/uL (4.3-11.0)
[2020-06-30 06:04] LABS: BAND % (MANUAL) 4 % (0.0-5.0); LYMPHOCYTES % (MANUAL) 8 % (16-48); MONOCYTES % (MANUAL) 1 % (0-11.0); NEUTROPHILS % (MANUAL) 87 (42-76)
--- NOTE | 2020-06-30 07:05 | NUR ---
RN NOTES RECEIVED PT ON BED ,A/Ox1, FOLLOWS SIMPLE COMMAND, ON HI FLOW O2 , 20L, 32% RESPIRATIONS EVEN AND UNLABORED. O2 SAT WNL, DENIES PAIN OR DISCOMFORT AT THIS TIME. VITAL SIGNS STABLE. SR ON THE BEDSIDE MONITOR. BLAKE CATHETER PATENT AND IN PLACE DRAINING SMALL AMOUNT OF ROEL COLOR URINE, WITH GT FEEDING NEPRO AT 35 ML/HOUR. NO RESIDUAL NOTED. FLUSHED. R HAND IV SITE G 20 AND R FEMORAL HD CATH SITE CLEAN, DRY AND INTACT . CALL LIGHT WITHIN REACH, SR UP x3, CALL LIGHT WITHIN EASY REACH, SAFETY MEASURES IN PLACE, WILL CONTINUE TO MONITOR.2
--- NOTE | 2020-06-30 07:17 | NUR ---
VEHICLE UPHOLSTERER NOTE PATIENT REMAINED STABLE THROUGHOUT THE NIGHT. NO SIGNIFICANT CHANGES NOTED. ALL DUE MEDS GIVEN ORDERED AND TOLERATED WELL. PATIENT IS KEPT CLEAN, DRY, AND COMFORTABLE. REPOSITIONED Q2H. ENDORSED TO AM SHIFT RN FOR CONTINUATION OF CARE.
[2020-06-30] MEDS: PANTOPRAZOLE 40 MG/PACK PACK GT SCH ×2 (08:15→20:56)
[2020-06-30] MEDS: LISINOPRIL (10MG) 10 MG TABLET GT SCH (08:15)
[2020-06-30] MEDS: MULTIVITAMINS,THERAGRAN 1 UDTAB TABLET GT SCH (08:15)
[2020-06-30] MEDS: hydrALAZINE HCL 50 MG TABLET PO SCH ×3 (08:16→18:38)
[2020-06-30] MEDS: MEROPENEM 500 MG in IV NS 0.9% 50 ML IV SCH ×2 (08:16→20:56)
[2020-06-30] MEDS: NITROGLYCERIN 30 GM TUBE TP SCH ×2 (08:17→21:01)
[2020-06-30] MEDS: CLOTRIMAZOLE 1% 15 GM TUBE TP SCH ×2 (08:18→16:32)
[2020-06-30] MEDS: HYDROGEL DRESSING 90 GM TUBE TP SCH (08:18)
--- NOTE | 2020-06-30 09:00 | NUR ---
RN NOTES PT ON O2 AT 6L PER MD ORDER, O2 SAT WNL, NO RESPIRATORY DISTRESS NOTED , CONTINUE TO MONITOR .
[2020-06-30] MEDS: ALBUMIN 25% 25 GM in PREMIX 1 EA IV PRN (16:31)
--- NOTE | 2020-06-30 17:05 | NUR ---
RN NOTES PT RECEIVEING HD AT THIS TIME, VSS STABLE , CONTINUITY TO MONITOR .
[2020-06-30] MEDS: NEPRO 1,000 ML BOTTLE GT PRN (17:06)
--- NOTE | 2020-06-30 18:00 | NUR ---
RN NOTES PT RECEIVING HD AT THIS TIME, VSS STABLE,TOLERATED WELL , ON 3L O2 N/C , O2 SAT WNL, NO SOB NOTED , TOLERATING TF AT 35 CC/HR WELL, NO SIGNIFICANT CHANGES NOTED ON THIS SHIFT , SR UP x3, CALL LIGHT WITHIN EASY REACH, BED LOCKED AND IN LOWEST POSITION, WILL ENDORSE TO ACUTE SPECIALIST NURSE FOR CONTINUITY OF CARE .
--- NOTE | 2020-06-30 18:40 | NUR ---
RN NOTES A.FIB NOTED ON MONITOR AFTER HD DONE, BP STABLE , PT IS ASYMPTOMATIC , DR LAUREL NAGELFED, NO NEW ORDER GIVEN , CONTINUE TO MONITOR .
--- NOTE | 2020-06-30 19:10 | NUR ---
LONG TERM ACUTE CARE REGISTERED NURSE NOTE RECEIVED PATIENT IN BED RESTING WITH HOB ELEVATED. PATIENT IS 74 Y/O FEMALE WITH DX OF CHF, HYPERKALEMIA, AND RESPIRATORY FAILURE. FULL CODE. ON CONTACT ISOLATION FOR ESBL IN URINE. PATIENT IS A/O X1, ABLE TO FOLLOW SIMPLE COMMANDS. SPEECH IS UNCLEAR. ON O2 3 LITERS VIA NASAL CANULA. O2 SAT IS 96% AT THIS TIME. IV SITE ON RIGHT HAND, RIGHT FOREARM, AND RIGHT FEMORAL PICC TAIL ARE CLEAN, DRY, AND PATENT. TKO RUNNING AT 10 ML/HR. ON GT FEEDING NEPHRO RUNNING AT 35 ML/HR, 5 ML RESIDUAL NOTED. PATIENT HAS BLAKE CATH, URINE IS CLEAR AND ROEL IN COLOR. PATIENT IS S/P HD WITH 500 ML OUTPUT PER AM SHIFT REPORT. IN NO APPARENT DISTRESS NOTED AT THIS TIME. NO COMPLAINTS OF ANY PAIN. BED IS LOWERED AND LOCKED FOR SAFETY. BED ALARM TURNED ON. WILL CONTINUE TO MONITOR.
[2020-06-30] MEDS: MICAFUNGIN SODIUM 100 MG in IV NS 0.9% 100 ML IV SCH (19:54)
[2020-07-01] VITALS (13 sets, daily range): BP systolic 112–182; BP diastolic 51–80
[2020-07-01] MEDS: IPRATROPIUM NEB FS 0.5 MG/2.5 ML AMPUL.NEB NEB SCH ×7 (00:01→23:26)
--- NOTE | 2020-07-01 01:45 | NUR ---
PROPERTY INSURANCE CLAIMS EXAMINER NOTE PATIENT TOLERATED BED BATH WELL AT THIS TIME. NOTED X1 BM. WOUND CARE RENDERED. CONTINUE TO MONITOR.
--- NOTE | 2020-07-01 02:00 | NUR ---
DRAPERY HANGER NOTE WOUND PICTURES TAKEN AND PLACED IN PATIENT'S CHART.
[2020-07-01] MEDS: methylPREDNISolone SOD SUCC 40 MG/ML VIAL IV SCH ×3 (04:58→20:27)
[2020-07-01] MEDS: NIFEdipine (10MG) 10 MG CAPSULE PO SCH ×3 (04:58→20:28)
--- NOTE | 2020-07-01 07:02 | NUR ---
MANUFACTURING LEAD NOTE PATIENT REMAINED STABLE THROUGHOUT THE NIGHT. NO SIGNIFICANT CHANGES NOTED. ALL DUE MEDS GIVEN ORDERED AND TOLERATED WELL. PATIENT IS KEPT CLEAN, DRY, AND COMFORTABLE. WOUND CARE RENDERED. REPOSITIONED Q2H. KEPT ON GTF RUNNING AT 35 ML/HR. PATIENT TOLERATED 2 LITERS VIA NC. O2 SAT IS 95% AT THIS TIME. WILL ENDORSE TO AM SHIFT RN FOR CONTINUATION OF CAR.
[2020-07-01] MEDS: MULTIVITAMINS,THERAGRAN 1 UDTAB TABLET GT SCH (09:05)
[2020-07-01] MEDS: hydrALAZINE HCL 50 MG TABLET PO SCH ×3 (09:05→17:47)
[2020-07-01] MEDS: PANTOPRAZOLE 40 MG/PACK PACK GT SCH ×2 (09:05→20:27)
[2020-07-01] MEDS: LISINOPRIL (10MG) 10 MG TABLET GT SCH (09:06)
[2020-07-01] MEDS: HYDROGEL DRESSING 90 GM TUBE TP SCH (09:10)
[2020-07-01] MEDS: MEROPENEM 500 MG in IV NS 0.9% 50 ML IV SCH ×2 (09:10→21:37)
[2020-07-01] MEDS: CLOTRIMAZOLE 1% 15 GM TUBE TP SCH ×2 (09:11→17:48)
[2020-07-01] MEDS: NITROGLYCERIN 30 GM TUBE TP SCH ×2 (09:14→20:28)
--- NOTE | 2020-07-01 10:00 | NUR ---
RN NOTES PATIENT TRANSFERRED FROM ICU. ON TELE SR-80. REPORT GET FROM SURGICAL MANAGERSHIRLEY LEOS. PATIENT CONFUSED, TOTAL CARE, GTF ON 35 ML/HR INTACT. INFUSING MERREM AT 100 ML/HR ON RIGHT FA INTACT. V/S TAKEN BP 126/68, P-78, R-16, T-98.4, O295 NC. KEEP HOB ELEVATED OR ASPIRATION PRECAUTION, ASSIST TURN AND REPOSTION Q 2 HR. WILL CONTINUED MONITORING.
--- NOTE | 2020-07-01 10:00 | NUR ---
DIRECTOR OF SALES AND MARKETING NOTES TRANSFERRED PT TO 3W VIA GURNEY WITH 2 STAFF ASSIST IN STABLE. CONNECTED TO AED MONITOR AND APPLIED 02 AT 2LPM. GAVE REPORT TO MAYNOR (RN)
--- NOTE | 2020-07-01 15:36 | NUR ---
rn notes patient stable refused pain at this time, assist turn and reposition q 2 hr.
[2020-07-01] MEDS: MICAFUNGIN SODIUM 100 MG in IV NS 0.9% 100 ML IV SCH (18:27)
--- NOTE | 2020-07-01 18:30 | NUR ---
RN NOTES PATIENT STABLE, INFUSING NEPHRO 35 ML/HR, INTACT, V/S WNL, DUE MEDICATION ADMINISTERED, KEEP HOB ELEVATED FOR ASPIRATION PRECAUTION. ASSIST TURN AND REPOSTION Q 2 HR, F/C DRAINING DARK YELLOW OUTPUT, MYCAMINE 100 ML/HR ON RFA INTACT. ENDORSED ONCOMING NURSE FOLLOW PLAN OF CARE.
--- NOTE | 2020-07-01 19:10 | NUR ---
GUEST SERVICE HOST OPENING NOTES RECEIVED PATIENT IN BED SLEEPING EASILY AROUSABLE RESPIRATIONS EVEN AND UNLABORED WITH EQUAL RISE AND FALL OF CHEST, HOB ELEVATED FOR ASPIRATION PRECAUTIONS, DENIES ANY PAIN OR DISCOMFORT AT THIS TIME, LEFT FA #20 AND RIGHT HAND #20G INTACT AND PATENT, NO REDNESS, NO INFILTRATION PRESENT, RIGHT FEMORAL HD SITE INTACT, IVF RUNNING ORDERED, SAFETY PRECAUTIONS RENDERED LOW BED AND LOCKED, ALL NEEDS ATTENDED AT THIS TIME, ORIENTED TO STAFF AND CALL LIGHT AND KEPT WITHIN REACH, WILL CONTINUE TO MONITOR AND ATTEND TO NEEDS REMAINS COMFORTABLE.
[2020-07-01] MEDS ORDERED: VANCOMYCIN 1 GM in IV D5W 250 ML IV ONE (20:00)
[2020-07-01] MEDS: NEPRO 1,000 ML BOTTLE GT PRN (20:50)
[2020-07-02] VITALS: BP 132/60
[2020-07-02] MEDS: IPRATROPIUM NEB FS 0.5 MG/2.5 ML AMPUL.NEB NEB SCH ×6 (03:39→23:30)
[2020-07-02 04:00] VITALS: BP 117/70
[2020-07-02 04:18] VITALS: BP 117/70
[2020-07-02] MEDS: methylPREDNISolone SOD SUCC 40 MG/ML VIAL IV SCH ×3 (05:10→21:41)
[2020-07-02] MEDS: NIFEdipine (10MG) 10 MG CAPSULE PO SCH ×3 (05:11→21:41)
[2020-07-02] MEDS ORDERED: VANCOMYCIN 500 MG in IV D5W 100 ML IV PRN (06:00)
--- NOTE | 2020-07-02 06:43 | NUR ---
JOCKEY AGENT CLOSING NOTES PATIENT IN BED SLEEPING EASILY AROUSABLE RESPIRATIONS EVEN AND UNLABORED WITH EQUAL RISE AND FALL OF CHEST, HOB ELEVATED FOR ASPIRATION PRECAUTIONS, DENIES ANY PAIN OR DISCOMFORT AT THIS TIME, LEFT FA #20 AND RIGHT HAND #20G INTACT AND PATENT, NO REDNESS, NO INFILTRATION PRESENT, RIGHT FEMORAL HD SITE INTACT, IVF RUNNING ORDERED, SAFETY PRECAUTIONS RENDERED LOW BED AND LOCKED, WOUND CARE DONE ORDERED REPOSITIONED AND OFFLOADED,ALL NEEDS ATTENDED AT THIS TIME, CALL LIGHT AND KEPT WITHIN REACH, WILL CONTINUE TO MONITOR AND ATTEND TO NEEDS REMAINS COMFORTABLE WILL ENDORSE TO NEXT SHIFT.
--- NOTE | 2020-07-02 06:45 | NUR ---
TELE MONITORING [id number]
--- NOTE | 2020-07-02 07:43 | NUR ---
RN NOTES RECEIVED PATIENT IN BED RESTING COMFORTABLY IN MODERATE HIGH BACK REST. SLEEPING EASILY AROUSABLE NO SIGNS OF DISTRESS NOTED AT THIS TIME, LEFT FA #20 AND RIGHT HAND #20G INTACT AND PATENT, NO REDNESS, NO INFILTRATION PRESENT, RIGHT FEMORAL HD SITE INTACT, IVF RUNNING ORDERED, SAFETY PRECAUTIONS IN PLACE, LOW BED AND LOCKED, CALL LIGHT WITHIN REACH, WILL CONTINUE TO MONITOR.
[2020-07-02 08:00] VITALS: BP 107/54
[2020-07-02] MEDS: PANTOPRAZOLE 40 MG/PACK PACK GT SCH ×2 (08:31→21:41)
[2020-07-02] MEDS: MULTIVITAMINS,THERAGRAN 1 UDTAB TABLET GT SCH (08:31)
[2020-07-02] MEDS: hydrALAZINE HCL 50 MG TABLET PO SCH ×3 (08:32→16:30)
[2020-07-02] MEDS: LISINOPRIL (10MG) 10 MG TABLET GT SCH (08:32)
[2020-07-02] MEDS: NITROGLYCERIN 30 GM TUBE TP SCH ×2 (08:37→21:55)
[2020-07-02] MEDS: MEROPENEM 500 MG in IV NS 0.9% 50 ML IV SCH ×2 (08:37→21:42)
[2020-07-02] MEDS: HYDROGEL DRESSING 90 GM TUBE TP SCH (08:39)
[2020-07-02] MEDS: CLOTRIMAZOLE 1% 15 GM TUBE TP SCH ×2 (08:39→16:33)
--- NOTE | 2020-07-02 10:45 | NUR ---
RN NOTES SPOKE TO FAMILY, PER FAMILY THEY WANT FEMALE NURSES ONLY FOR THEIR MOTHER. FAMILY GIVEN UPDATE OF PATIENT STATUS. CHARGE NURSE MADE AWARE. WILL CONTINUE TO MONITOR.
--- NOTE | 2020-07-02 11:02 | NUR ---
WOOL HAT FINISHER NOTES RECEIVED PT FROM GERARDO WATSON, PT IN BED, RESTING, NO SIGN OF PAIN OR DISTRESS, CALL LIGHT WITHIN REACH, GT FEEDING INFUSING WELL, KEPT WARM AND COMFORTABLE.
--- NOTE | 2020-07-02 11:02 | NUR ---
RN NOTES REPORT GIVEN TO SHIRLEY CORTEZ TO CONTINUE CARE FOR THE PATIENT.
[2020-07-02 12:00] VITALS: BP_SYST 107; BP_SYST 125; BP_DIAS 54; BP_DIAS 67
--- NOTE | 2020-07-02 12:16 | NUR ---
received call from pola isaac stating that family is requesting update from md's, dr. Mcguire at the bedside and will call family with poc.
--- NOTE | 2020-07-02 12:20 | NUR ---
dr. Mcguire is on the phone with Gala.
--- NOTE | 2020-07-02 19:18 | NUR ---
BEATER TENDER CLOSING SHIFT NOTES PATIENT RESTING IN BED, EASILY AROUSABLE RESPIRATIONS EVEN AND UNLABORED HOB ELEVATED FOR ASPIRATION PRECAUTIONS, DENIES ANY PAIN OR DISCOMFORT AT THIS TIME, IV TO RIGHT HAND #20G INTACT AND PATENT, NO REDNESS, NO INFILTRATION PRESENT, RIGHT FEMORAL HD SITE INTACT, IVF RUNNING ORDERED, BED AT LOWEST POSITION AND LOCKED WITH SIDE RAILS UP X2. AND CALL LIGHT WITHIN REACH. WILL ENDORSE TO NEXT SHIFT
--- NOTE | 2020-07-02 19:50 | NUR ---
MS RN NOTE: PATIENT RESTING IN BED, NO ACUTE DISTRESS NOTED. BREATHING EVEN AND UNLABORED, NO SOB NOTED. IV TO RFA IN PLACE. BLAKE CATHETER IN PLACE, EMPTY AT THIS TIME. G-TUBE IN PLACE, INFUSING NEPRO AT 35ML/HR. BED LOCKED AND IN LOWEST POSITION, CALL LIGHT IN REACH. WILL CONTINUE TO MONITOR.
[2020-07-02 20:00] VITALS: BP 118/59
[2020-07-02] MEDS ORDERED: VANCOMYCIN 1 GM in IV D5W 250 ML IV ONE (20:00)
--- NOTE | 2020-07-02 20:30 | NUR ---
MS RN NOTE: PATIENT TO HAVE SERIAL DEBRIDEMENT OF SACRAL WOUND, CALLED PATIENT'S SON, CARISSA HINES AND RECEIVED TELEPHONE CONSENT FOR PROCEDURE, VERIFIED WITH SECOND NURSE ON CONSENT. WILL CONTINUE TO MONITOR.
[2020-07-03] MEDS: NEPRO 1,000 ML BOTTLE GT PRN (01:20)
[2020-07-03] MEDS: IPRATROPIUM NEB FS 0.5 MG/2.5 ML AMPUL.NEB NEB SCH ×6 (03:30→23:55)
[2020-07-03] MEDS: methylPREDNISolone SOD SUCC 40 MG/ML VIAL IV SCH ×3 (05:29→20:56)
[2020-07-03] MEDS: NIFEdipine (10MG) 10 MG CAPSULE PO SCH ×3 (05:29→20:57)
--- NOTE | 2020-07-03 06:20 | NUR ---
MS RN NOTE: PATIENT RESTING IN BED, NO ACUTE DISTRESS NOTED. BREATHING EVEN AND UNLABORED, NO SOB NOTED. IV TO RFA IN PLACE. BLAKE CATHETER IN PLACE, DRAINED 1100ML CLEAR YELLOW URINE. G-TUBE IN PLACE, INFUSING NEPRO AT 35ML/HR. HOB ELEVATED. BED LOCKED AND IN LOWEST POSITION, CALL LIGHT IN REACH. WILL ENDORSE TO DAY NURSE TO CONTINUE WITH PLAN OF CARE.
--- NOTE | 2020-07-03 07:30 | NUR ---
received pt. alert and oriented x1.tube feeding infusing,hd cath intact rt, groin.kirsten contacted regarding elevated bun and creat. to have hd tomorrow.
[2020-07-03 07:53] LABS: BASOPHILS # (AUTO) 0.1 /CMM (0.0-0.2); BASOPHILS % (AUTO) 0.4 % (0.0-2.0); HEMATOCRIT 27 % (33-45); HEMOGLOBIN 8.8 g/dL (11.5-14.8); LYMPHOCYTES # (AUTO) 0.2 /CMM (0.8-4.8); LYMPHOCYTES % (AUTO) 1.7 % (20.0-44.0); MEAN CORPUSCULAR HGB CONC 32 g/dl (31.0-36.0); MEAN CORPUSCULAR VOLUME 97 fL (82-100); MONOCYTES # (AUTO) 0.4 /CMM (0.1-1.30); MONOCYTES % (AUTO) 2.6 % (2.0-12.0); NEUTROPHILS # (AUTO) 13.5 /CMM (1.8-8.9); NEUTROPHILS % (AUTO) 95.3 % (43.0-81.0); PLATELET COUNT (AUTO) 79 /CMM (150-450); RED BLOOD CELL COUNT(AUTO) 2.83 MIL/uL (4.0-5.2); WHITE BLOOD COUNT (AUTO) 14.2 K/uL (4.3-11.0)
[2020-07-03 08:16] LABS: ALANINE AMINOTRANSFERASE 46 U/L (12-78); ALKALINE PHOSPHATASE 172 U/L (46-116); ASPARTATE AMINOTRANSFERASE 61 U/L (15-37); BILIRUBIN,TOTAL 1.2 mg/dL (0.2-1.0); CALCIUM, SERUM 8.1 mg/dL (8.5-10.1); CARBON DIOXIDE 27 mmol/L (21-32); CHLORIDE 100 mmol/L (98-107); GLUCOSE 134 mg/dL (74-106); PHOSPHORUS 3.8 mg/dL (2.5-4.9); POTASSIUM 4.8 mmol/L (3.5-5.1); SODIUM SERUM 133 mmol/L (136-145); TOTAL PROTEIN, SERUM 4.7 g/dL (6.4-8.2)
[2020-07-03 08:33] LABS: UREA NITROGEN, BLOOD 85 mg/dL (7-18)
[2020-07-03] MEDS: MEROPENEM 500 MG in IV NS 0.9% 50 ML IV SCH ×2 (09:00→20:56)
[2020-07-03] MEDS: NITROGLYCERIN 30 GM TUBE TP SCH ×2 (09:01→21:05)
[2020-07-03] MEDS: PANTOPRAZOLE 40 MG/PACK PACK GT SCH ×2 (09:01→20:56)
[2020-07-03] MEDS: LISINOPRIL (10MG) 10 MG TABLET GT SCH (09:01)
[2020-07-03] MEDS: MULTIVITAMINS,THERAGRAN 1 UDTAB TABLET GT SCH (09:01)
[2020-07-03] MEDS: CLOTRIMAZOLE 1% 15 GM TUBE TP SCH ×2 (09:27→17:06)
[2020-07-03] MEDS: HYDROGEL DRESSING 90 GM TUBE TP PRN (09:28)
[2020-07-03] MEDS: HYDROGEL DRESSING 90 GM TUBE TP SCH (09:29)
[2020-07-03] MEDS: hydrALAZINE HCL 50 MG TABLET PO SCH ×3 (10:00→17:00)
--- NOTE | 2020-07-03 15:00 | NUR ---
bradford waterman sanitary landfill supervisor in to do debridement of sacral area.
[2020-07-03 16:00] VITALS: BP 113/60
--- NOTE | 2020-07-03 19:30 | NUR ---
MS/RN OPENING NOTES RECEIVED PATIENT BED RESTING. PATIENT IS ALERT AND ORIENTED X 1. PATIENT IS ON 2L O2 TOLERATING WELL. NO SIGN OF SOB OR RESPIRATORY DISTRESS NOTED. PATIENT HAS G TUBE IN PLACE RUNNING NEPHRO AT 35 ML/HR. BLAKE CATH IS IN PLACE. PATIENT HAS IV ACCESS ON RIGHT FA #20 AND RIGHT FEM HD SITE. PATIENT IS NO SIGNS OF DISTRESS. SAFETY MEASURES ARE IN PLACE, BED IS LOCKED AND PLACED IN THE LOWEST POSITION, SIDE RAILS UP X 3. CALL LIGHT WITH IN REACH. WILL CONTINUE TO MONITOR PATIENT THROUGH OUT SHIFT.
[2020-07-03 20:00] VITALS: BP 132/75
[2020-07-04] MEDS: IPRATROPIUM NEB FS 0.5 MG/2.5 ML AMPUL.NEB NEB SCH ×6 (03:48→23:35)
[2020-07-04] MEDS: NIFEdipine (10MG) 10 MG CAPSULE PO SCH ×3 (05:27→22:05)
[2020-07-04] MEDS: methylPREDNISolone SOD SUCC 40 MG/ML VIAL IV SCH ×3 (05:27→21:55)
[2020-07-04] MEDS: NEPRO 1,000 ML BOTTLE GT PRN (06:35)
[2020-07-04 06:52] LABS: BASOPHILS % (AUTO) 0.1 % (0.0-2.0); HEMATOCRIT 28 % (33-45); HEMOGLOBIN 9.2 g/dL (11.5-14.8); LYMPHOCYTES # (AUTO) 0.4 /CMM (0.8-4.8); LYMPHOCYTES % (AUTO) 2.4 % (20.0-44.0); MEAN CORPUSCULAR HGB CONC 33 g/dl (31.0-36.0); MEAN CORPUSCULAR VOLUME 97 fL (82-100); MONOCYTES # (AUTO) 0.4 /CMM (0.1-1.30); MONOCYTES % (AUTO) 2.2 % (2.0-12.0); NEUTROPHILS # (AUTO) 16.9 /CMM (1.8-8.9); NEUTROPHILS % (AUTO) 95.3 % (43.0-81.0); PLATELET COUNT (AUTO) 98 /CMM (150-450); RED BLOOD CELL COUNT(AUTO) 2.88 MIL/uL (4.0-5.2); WHITE BLOOD COUNT (AUTO) 17.8 K/uL (4.3-11.0)
--- NOTE | 2020-07-04 06:55 | NUR ---
MS/RN CLOSING NOTES PATIENT IN BED RESTING. PATIENT IS ALERT AND ORIENTED X 1. PATIENT IS ON 2L O2 TOLERATING WELL. NO SIGN OF SOB OR RESPIRATORY DISTRESS NOTED. PATIENT HAS G TUBE IN PLACE RUNNING NEPHRO AT 35 ML/HR. BLAKE CATH IS IN PLACE OUTPUT 200 CC. PATIENT HAS IV ACCESS ON RIGHT HAND #22 AND RIGHT FEM HD SITE. PATIENT IS NO SIGNS OF DISTRESS. ALL PATIENTS NEEDS HAVE BEEN MET DURING SHIFT. SAFETY MEASURES ARE IN PLACE, BED IS LOCKED AND PLACED IN THE LOWEST POSITION, SIDE RAILS UP X 3. CALL LIGHT WITH IN REACH. WILL ENDORSE CARE TO DAY SHIFT.
[2020-07-04 07:05] LABS: CALCIUM, SERUM 8.5 mg/dL (8.5-10.1); CARBON DIOXIDE 26 mmol/L (21-32); CHLORIDE 99 mmol/L (98-107); CREATININE 2.3 mg/dL (0.6-1.3); GLUCOSE 132 mg/dL (74-106); POTASSIUM 4.8 mmol/L (3.5-5.1); SODIUM SERUM 135 mmol/L (136-145)
[2020-07-04 07:13] LABS: UREA NITROGEN, BLOOD 101 mg/dL (7-18)
[2020-07-04 08:00] VITALS: BP 136/63
[2020-07-04] MEDS: LISINOPRIL (10MG) 10 MG TABLET GT SCH (08:38)
[2020-07-04] MEDS: hydrALAZINE HCL 50 MG TABLET PO SCH ×3 (08:39→17:00)
[2020-07-04] MEDS: PANTOPRAZOLE 40 MG/PACK PACK GT SCH ×2 (08:39→21:56)
[2020-07-04] MEDS: MULTIVITAMINS,THERAGRAN 1 UDTAB TABLET GT SCH (08:39)
[2020-07-04] MEDS: CLOTRIMAZOLE 1% 15 GM TUBE TP SCH ×2 (08:41→17:09)
[2020-07-04] MEDS: HYDROGEL DRESSING 90 GM TUBE TP SCH (08:41)
[2020-07-04] MEDS: NITROGLYCERIN 30 GM TUBE TP SCH ×2 (08:47→22:10)
[2020-07-04] MEDS: MEROPENEM 500 MG in IV NS 0.9% 50 ML IV SCH (08:49)
--- NOTE | 2020-07-04 09:38 | NUR ---
MS RN OPENING SHIFT NOTES RECEIVED PATIENT RESTING IN BED HOB ELEVATED 30-40 DEGREE ANGLE, PATIENT IS A/O X 1. ON 2L O2 VIA NC, TOLERATING WELL. NO SIGN OF SOB OR ACUTE RESPIRATORY DISTRESS NOTED. PATIENT HAS G TUBE IN PLACE RUNNING NEPHRO AT 35 ML/HR. WITH 40 CC RESIDUAL. BLAKE CATH IN PLACE WITH 100CC CLEAR YELLOW OUTPUT NOTED, PATIENT HAS IV ACCESS TO RIGHT HAND #20 G AND RIGHT FEM HD SITE. PATIENT WITH NO SIGNS OF DISTRESS. BED IS LOCKED AND PLACED AT THE LOWEST POSITION WITH SIDE RAILS UP X 3. CALL LIGHT WITH IN REACH. ALL SAFETY MEASURES ARE IN PLACE, WILL CONTINUE TO MONITOR PATIENT.
[2020-07-04 16:00] VITALS: BP 112/54
--- NOTE | 2020-07-04 17:13 | NUR ---
MS RN NOTES PT TO HAVE HD LATER TODAY, HOLD BP MEDICATION DUE @1700 AND VANCO UNTIL AFTER HD.
--- NOTE | 2020-07-04 18:51 | NUR ---
RN MS CLOSING NOTES PATIENT RESTING IN BED WITH HOB ELEVATED @30-40 DEGREE ANGLE, PATIENT IS A/O X 1, MUMBLING AT TIMES. ON O2 VIA NC 2L TOLERATING WELL. NO SIGN OF SOB OR ACUTE RESPIRATORY DISTRESS NOTED. PATIENT HAS G-TUBE IN PLACE RUNNING NEPHRO AT 35 ML/HR. BLAKE CATH IN PLACE WITH 200 CC OF CLEAR YELLOW OUTPUT NOTED, DIALYSIS ONGOING AT BEDSIDE; WILL ENDORSE TO STORAGE MANAGEMENT CONSULTANT TO ADMINISTER MEDS ORDERED S/P HD. PATIENT HAS IV ACCESS TO RIGHT HAND #20 G AND RT FEM HD SITE. PATIENT WITH NO SIGNS OF DISTRESS. BED IS LOCKED AND PLACED AT THE LOWEST POSITION WITH SIDE RAILS UP X 3. CALL LIGHT WITH IN REACH. ALL SAFETY MEASURES ARE IN PLACE, WILL ENDORSE TO STORAGE MANAGEMENT CONSULTANT
--- NOTE | 2020-07-04 19:00 | NUR ---
MS RN OPENING NOTES: RECEIVED PATIENT IN BED, AWAKE, CONFUSED. HOB ELEVATED AT 30 DEGREES. NO S/S OF DISTRESS NOTED. NO COMPLAIN OF PAIN. PATIENT IS CALM AND COMFORT. ON HD AT THIS MOMENT. BED IN LOWEST AND LOCKED POSITION. BED ALARM ON. ESBL OF THE URINE ISOLATION. WITH GT FEEDING NEPHRO AT35ML/HOUR.
[2020-07-04 20:00] VITALS: BP 155/66
--- NOTE | 2020-07-04 21:05 | NUR ---
RECEIVED A CALL FROM THE LAB FOR PRELIMINARY RESULT OF BLOOD CULTURE IS GRAM POSITIVE COCCI, INFORMED DR QUINTANILLA.
[2020-07-04 22:03] VITALS: BP 125/70
--- NOTE | 2020-07-04 22:34 | NUR ---
GT RESIDUAL=50ML,INFORMED DR QUINTANILLA.
--- NOTE | 2020-07-04 23:01 | NUR ---
SKIN AROUND THE GT SITE HAS SLIGHT SKIN REDNESS, WITH SOME BROWNISH COLOR EXUDATE, CLEANSED WITH WATER AND DRIED AND GAUZE APPLIED.
--- NOTE | 2020-07-05 00:11 | NUR ---
PATIENT IS NPO NOW, GT FEEDING STOPPED, FLUSHED WITH WATER AND CLAMPED.
[2020-07-05] MEDS: IPRATROPIUM NEB FS 0.5 MG/2.5 ML AMPUL.NEB NEB SCH ×6 (03:23→23:55)
[2020-07-05] MEDS: NIFEdipine (10MG) 10 MG CAPSULE PO SCH ×3 (05:00→21:22)
--- NOTE | 2020-07-05 05:35 | NUR ---
CALLED THE PATIENT'S SON CARISSA HINES AND LEFT A MESSAGE RE: TELEPHONE CONSENT FOR PERMA CATH PLACEMENT TODAY.
[2020-07-05] MEDS: methylPREDNISolone SOD SUCC 40 MG/ML VIAL IV SCH ×3 (05:50→21:27)
--- NOTE | 2020-07-05 06:03 | NUR ---
CALLED AND LEFT A MESSAGE FOR PATIENT'S SON-CARISSA HINES.
--- NOTE | 2020-07-05 06:08 | NUR ---
MS RN CLOSING NOTES: PATIENT IN BED, ASLEEP, AROUSABLE. NO S/S OF DISTRESS NOTED. NOT IN PAIN. BED ALARM ON. BED IN LOWEST AND LOCKED POSITION. HOB ELEVATED AT 30 DEGREES. NPO. RASHES TO BUTTOCKS/PERINEUM-CLEANSED WITH SOAP AND WATER,RINSED WELL AND DRIED WELL AND LOTRIMIN CREAM APPLIED. FOR SACRAL STAGE 3 ULCER-CLEANSED WITH NS,PAT DRIED, AND APPLIED A SMALL AMOUNT OF HYDROGEL AND COVERED WITH MEPILEX DRESSING.
--- NOTE | 2020-07-05 06:12 | NUR ---
CALLED THE PATIENT'S SON 2X AND LEFT MESSAGES RE: TELEPHONE CONSENT FOR PERMA CATH PLACEMENT TODAY, NO CALL BACK YET, CHARGE NURSE CHRISTOPHER AWARE.
--- NOTE | 2020-07-05 06:40 | NUR ---
CALLED THE DAUGHTER- ROSANGELA , AND LEFT MESSAGES RE: TO OBTAIN THE TELEPHONE CONSENT FOR PERMA-CATH PLACEMENT.
[2020-07-05 07:21] LABS: BASOPHILS % (AUTO) 0.2 % (0.0-2.0); HEMATOCRIT 22 % (33-45); HEMOGLOBIN 7.2 g/dL (11.5-14.8); LYMPHOCYTES # (AUTO) 0.3 /CMM (0.8-4.8); LYMPHOCYTES % (AUTO) 1.7 % (20.0-44.0); MEAN CORPUSCULAR HGB CONC 32 g/dl (31.0-36.0); MEAN CORPUSCULAR VOLUME 99 fL (82-100); MONOCYTES # (AUTO) 0.3 /CMM (0.1-1.30); MONOCYTES % (AUTO) 1.6 % (2.0-12.0); NEUTROPHILS # (AUTO) 15.2 /CMM (1.8-8.9); NEUTROPHILS % (AUTO) 96.5 % (43.0-81.0); PLATELET COUNT (AUTO) 96 /CMM (150-450); RED BLOOD CELL COUNT(AUTO) 2.26 MIL/uL (4.0-5.2); WHITE BLOOD COUNT (AUTO) 15.8 K/uL (4.3-11.0)
[2020-07-05] MEDS ORDERED: ANESTHESIA TRAY IN PYXIS 1 EA TRAY MC ONE (07:22)
--- NOTE | 2020-07-05 07:30 | NUR ---
MS/RN NOTE Patient currently out for procedure.
[2020-07-05] MEDS ORDERED: LIDOCAINE 0.5% HCL 50 ML VIAL ONE (07:31)
[2020-07-05] MEDS ORDERED: HEPARIN SODIUM, PORCINE 1,000 UNIT/ML VIAL ONE (07:43)
[2020-07-05 07:44] LABS: CALCIUM, SERUM 8.4 mg/dL (8.5-10.1); CARBON DIOXIDE 27 mmol/L (21-32); CHLORIDE 102 mmol/L (98-107); CREATININE 1.9 mg/dL (0.6-1.3); GLUCOSE 124 mg/dL (74-106); POTASSIUM 5.1 mmol/L (3.5-5.1); SODIUM SERUM 136 mmol/L (136-145); UREA NITROGEN, BLOOD 77 mg/dL (7-18)
--- NOTE | 2020-07-05 08:15 | NUR ---
MS/RN OPENING NOTE Patient back from OR, transferred to room safely via bed. A&O x 1, VS taken, afebrile, no SOB noted. Denies any pain/discomfort at this time. On 5L oxygen via NC, breathing even and non-labored. No respiratory or cardiac distress noted. IV access noted on R hand #22, patent and intact, and flushing well. Right chest wall permacath noted, with clean dressing intact. R femoral hemodialysis cath still in place, awaiting for removal per MD. Mcintyre catheter in place, draining yellow urine output well. Sensation from all peripheral extremities intact. Bed locked to its lowest position, side rails x 2 up, call light in hand. Post op orders carried out. Will continue current medical management.
[2020-07-05 08:40] VITALS: BP 128/75
[2020-07-05] MEDS ORDERED: VANCOMYCIN POST DIALYSIS 500MG IV PRN ×2 (09:00)
[2020-07-05] MEDS: MULTIVITAMINS,THERAGRAN 1 UDTAB TABLET GT SCH (09:37)
[2020-07-05] MEDS: PANTOPRAZOLE 40 MG/PACK PACK GT SCH ×2 (09:37→21:22)
[2020-07-05] MEDS: LISINOPRIL (10MG) 10 MG TABLET GT SCH (09:37)
[2020-07-05] MEDS: hydrALAZINE HCL 50 MG TABLET PO SCH ×3 (09:37→17:41)
[2020-07-05] MEDS: NITROGLYCERIN 30 GM TUBE TP SCH ×2 (09:38→21:22)
[2020-07-05] MEDS: CLOTRIMAZOLE 1% 15 GM TUBE TP SCH ×2 (09:39→17:41)
[2020-07-05] MEDS: HYDROGEL DRESSING 90 GM TUBE TP SCH (09:39)
[2020-07-05] MEDS: NEPRO 1,000 ML BOTTLE GT PRN (10:17)
[2020-07-05 10:50] VITALS: BP 128/75
[2020-07-05 16:00] VITALS: BP 149/70
--- NOTE | 2020-07-05 19:26 | NUR ---
MS RN: RECEIVED PATIENT Patient in bed, A/O x1 to self only with confusion. On Oxygen at 3L NC tolerating well with Oxygen saturation 95%. Right chest Perma cath with blood-soaked gauze, bleeding to site not increased in last 11 hours post op perma cath insertion per SHIRLEY Dennis. Contact isolation for ESBL urine. Fall; Skin precaution maintained.
--- NOTE | 2020-07-05 19:30 | NUR ---
MS/RN CLOSING NOTE Patient resting in bed. A&O x 1, VSS, afebrile, no SOB noted. All needs met and attended. Denies any pain/discomfort at this time. On 5L oxygen via NC, breathing even and non-labored. No respiratory or cardiac distress noted. IV access noted on R hand #22, patent and intact, and flushing well. Right chest wall permacath noted, with clean dressing intact. R femoral hemodialysis cath still in place, awaiting for removal per MD. G-tube in place, patent and intact, running Nepro @ 35 ml/hr. Mcintyre catheter in place, draining yellow urine output well. Sensation from all peripheral extremities intact. Fall precautions maintained. Will endorse to technical program manager nurse.
[2020-07-05 20:35] VITALS: BP 132/79
[2020-07-06] MEDS: IPRATROPIUM NEB FS 0.5 MG/2.5 ML AMPUL.NEB NEB SCH ×6 (03:52→23:22)
[2020-07-06] MEDS: NIFEdipine (10MG) 10 MG CAPSULE PO SCH ×3 (05:14→20:49)
[2020-07-06] MEDS: methylPREDNISolone SOD SUCC 40 MG/ML VIAL IV SCH ×3 (05:15→20:54)
[2020-07-06] MEDS: IV NS 0.9% 250 ML IV PRN (05:39)
[2020-07-06] MEDS: NEPRO 1,000 ML BOTTLE GT PRN (05:46)
--- NOTE | 2020-07-06 06:58 | NUR ---
MS RN: END OF SHIFT REPORT Patient in bed. Remains on supplemental Oxygen at 3L NC. On Neb. q 4hr. Gtube feeding at 35ml/hr at goal rate. Right chest wall Perma cath gauze in place, no new blood drainage over gauze. ID following. Contact isolation. Dialysis nurse to remove right femoral HD cath. Will endorse to onckristina RN. [id number]
--- NOTE | 2020-07-06 07:30 | NUR ---
MS/RN OPENING NOTE Patient resting in bed, A&O x 1, confused. No complaints of any pain/discomfort at this time. On 3L oxygen via NC, breathing even and non-labored. No respiratory or cardiac distress noted. IV access noted on R hand #22, patent and intact, and flushing well. Right chest wall permacath noted, with clean dressing intact. R femoral hemodialysis cath still in place, awaiting for removal per MD. G-tube in place, patent and intact, running Nepro @ 35 ml/hr. Mcintyre catheter in place, draining yellow urine output well. Sensation from all peripheral extremities intact. Bed locked to its lowest position, side rails x 2 up, call light in hand. Will continue with current plan of care.
[2020-07-06 08:00] VITALS: BP 125/68
[2020-07-06] MEDS: PANTOPRAZOLE 40 MG/PACK PACK GT SCH ×2 (08:18→20:49)
[2020-07-06] MEDS: LISINOPRIL (10MG) 10 MG TABLET GT SCH (08:18)
[2020-07-06] MEDS: MULTIVITAMINS,THERAGRAN 1 UDTAB TABLET GT SCH (08:18)
[2020-07-06] MEDS: hydrALAZINE HCL 50 MG TABLET PO SCH ×3 (08:19→17:00)
[2020-07-06] MEDS: NITROGLYCERIN 30 GM TUBE TP SCH ×2 (08:19→20:51)
[2020-07-06] MEDS: CLOTRIMAZOLE 1% 15 GM TUBE TP SCH ×2 (08:20→17:05)
[2020-07-06] MEDS: HYDROGEL DRESSING 90 GM TUBE TP SCH (08:21)
[2020-07-06 08:35] LABS: CALCIUM, SERUM 8.2 mg/dL (8.5-10.1); CARBON DIOXIDE 23 mmol/L (21-32); CHLORIDE 100 mmol/L (98-107); CREATININE 2.3 mg/dL (0.6-1.3); GLUCOSE 157 mg/dL (74-106); POTASSIUM 5.2 mmol/L (3.5-5.1); SODIUM SERUM 135 mmol/L (136-145)
[2020-07-06 08:42] LABS: UREA NITROGEN, BLOOD 99 mg/dL (7-18)
[2020-07-06 08:58] LABS: BASOPHILS % (AUTO) 0.3 % (0.0-2.0); LYMPHOCYTES # (AUTO) 0.3 /CMM (0.8-4.8); LYMPHOCYTES % (AUTO) 2.1 % (20.0-44.0); MEAN CORPUSCULAR HGB CONC 33 g/dl (31.0-36.0); MEAN CORPUSCULAR VOLUME 100 fL (82-100); MONOCYTES # (AUTO) 0.2 /CMM (0.1-1.30); MONOCYTES % (AUTO) 1.3 % (2.0-12.0); NEUTROPHILS # (AUTO) 12.9 /CMM (1.8-8.9); NEUTROPHILS % (AUTO) 96.3 % (43.0-81.0); PLATELET COUNT (AUTO) 101 /CMM (150-450); WHITE BLOOD COUNT (AUTO) 13.4 K/uL (4.3-11.0)
[2020-07-06 09:06] LABS: RED BLOOD CELL COUNT(AUTO) 1.89 MIL/uL (4.0-5.2)
[2020-07-06 09:07] LABS: HEMATOCRIT 19 % (33-45); HEMOGLOBIN 6.2 g/dL (11.5-14.8)
--- NOTE | 2020-07-06 09:15 | NUR ---
MS/RN NOTE No s/s of bleeding noted. Will continue to monitor.
--- NOTE | 2020-07-06 09:15 | NUR ---
MS/RN NOTE Paged Dr. Adamson at [facility] for patient's critical lab values, states will call me back.
--- NOTE | 2020-07-06 10:35 | NUR ---
MS/RN NOTE Received orders from Dr. Adamson, ordered re-check of H&H in 4 hrs, orders carried out. Will continue to monitor for s/s of bleeding.
--- NOTE | 2020-07-06 11:00 | NUR ---
MS/RN NOTE Pharmacy called to remind that patient has to have vancomycin administered post-HD. Noted.
--- NOTE | 2020-07-06 12:00 | NUR ---
MS/RN NOTE Started dialysis cleaning with dialysis nurse at bedside. Will continue to monitor for any changes of condition.
[2020-07-06 13:46] LABS: BAND % (MANUAL) 1 % (0.0-5.0); LYMPHOCYTES % (MANUAL) 2 % (16-48); NEUTROPHILS % (MANUAL) 97 (42-76)
--- NOTE | 2020-07-06 13:51 | NUR ---
MS/RN NOTE HELD SCHEDULED BP MEDS, PT CURRENTLY HAVING HEMODIALYSIS.
--- NOTE | 2020-07-06 15:00 | NUR ---
MS/RN NOTE Hemodialysis nurse on the floor, was able to remove right femoral HD catheter. Obtained and collected catheter tip for culture. Sent to lab.
--- NOTE | 2020-07-06 15:00 | NUR ---
MS/RN NOTE Patient finished hemodialysis. VSS, afebrile, no SOB noted. Will continue to monitor for any changes in condition.
[2020-07-06 16:00] VITALS: BP 116/60
--- NOTE | 2020-07-06 16:00 | NUR ---
MS/RN NOTE Paged Dr. Adamson for critical lab results of recheck-ed H&H: 5.0/15. No s/s of bleeding at this time. Will continue to monitor.
--- NOTE | 2020-07-06 16:15 | NUR ---
MS/RN NOTE Dr. Adamson reached back, ordered to transfuse 2 units of RBCs to patient, and to obtain hemoglobin and hematocrit 1 hr post-transfusion. Addendum: 07/06/20 at 1647 by AARON ALEJO RN Orders carried out
--- NOTE | 2020-07-06 18:53 | NUR ---
MS/RN CLOSING NOTE Patient resting in bed, A&O x 1, confused. All needs are met and attended to. VSS, afebrile, no SOB noted. No complaints of any pain/discomfort at this time. On 3L oxygen via NC, breathing even and non-labored. No respiratory or cardiac distress noted. IV access noted on R hand #22, patent and intact, and flushing well. Right chest wall permacath noted, with clean dressing intact. G-tube in place, patent and intact, running Nepro @ 35 ml/hr. Mcintyre catheter in place, draining yellow urine output well. Sensation from all peripheral extremities intact. Fall precautions maintained. Will endorse to dependency director nurse.
[2020-07-06 20:00] VITALS: BP 120/65
--- NOTE | 2020-07-06 20:00 | NUR ---
MS/RN OPENING NOTES RECEIVED PATIENT IN BED, WEAK AND FRAIL LOOKING, PALE WITH ORDER FOR 2 UNIT OF BLOOD, FAMILY SON WAS CONTACTED SPOKE WITH CARISSA AND VERBAL CONSENT OBTAINED WITH ANOTHER NURSE RN LOLY TO VERIFY, PATIENT ON 3 LITER OXYGENATION VIA NC, SKIN WARM TO TOUCH, WITH BLAKE DRAINING YELLOW URINE,. IV ON LEFT AC GAUGE 20 PLACED. BED LOCKED, CALL LIGHTS WITHIN REACH, GTUBE CHECK FOR RESIDUAL AND HAVE 60ML/ TO MONITOR,
--- NOTE | 2020-07-06 20:15 | NUR ---
MS/RN NOTES PATIENT WITH RCW CATHETER, BLAKE CATHETER DRAINING SCANTY URINE, EDEMA ON BILATERAL FEET PLUS 3, MONITORING.
[2020-07-06 21:46] VITALS: BP 135/65
--- NOTE | 2020-07-06 21:55 | NUR ---
MS/RN NOTES BLOOD TRANSFUSION STARTED, VERIFIED BY ANOTHER RN LOLI, PATIENT VITAL SIGNS CHECKED, MONITORED.
[2020-07-06 22:00] VITALS: BP 165/85
[2020-07-06 22:30] VITALS: BP 165/65
[2020-07-07] VITALS (10 sets, daily range): BP systolic 115–162; BP diastolic 62–100
--- NOTE | 2020-07-07 01:27 | NUR ---
BLOOD TRANSFUSION ENDED, VITAL SIGNS CHECKED, IV SITE ON LEFT AC. VITAL SIGNS CHECKED,
--- NOTE | 2020-07-07 02:13 | NUR ---
MD WAS MADE AWARE REGARDING ELEVATED BLOOD PRESSURE EXCEEDING SBP 160 AND ORDER TO GIVE NEEDED CLONIDINE .01 MG VIA GTUBE EVERY 4 TO 6 HOURS PRN, ORDER CARRIED OUT.
[2020-07-07] MEDS ORDERED: CLONIDINE HCL 0.1 MG TABLET PO PRN (02:30)
--- NOTE | 2020-07-07 02:36 | NUR ---
MS/RN NOTES LAB WAS CONTACTED FOR ANOTHER PRBC UNIT , ORDER CARRIED OUT.
[2020-07-07] MEDS: IPRATROPIUM NEB FS 0.5 MG/2.5 ML AMPUL.NEB NEB SCH ×5 (03:20→20:22)
--- NOTE | 2020-07-07 03:52 | NUR ---
MS/RN NOTES BLOOD TRANSFUSION STARTED AND WITNESSED AND VERIFIED WITH ANOTHER RN FERMIN, ON OXYGEN VIA NC AT 4 LITER WITH SATURATION AT 91%, JUST HAD BREATHING TREATMENT WITH RT.
[2020-07-07] MEDS: methylPREDNISolone SOD SUCC 40 MG/ML VIAL IV SCH ×3 (04:05→21:07)
[2020-07-07] MEDS: NIFEdipine (10MG) 10 MG CAPSULE PO SCH ×3 (04:05→21:08)
[2020-07-07] MEDS: NEPRO 1,000 ML BOTTLE GT PRN (05:09)
--- NOTE | 2020-07-07 06:55 | NUR ---
311-2 MS/RN NOTES PATIENT CAN OPENS EYE, EXTENSIVE ASSISTANCE FOR ALL ADL, ON OXYGEN VIA NC AT 3 LITER, GTUBE WITH MINIMAL RESIDUAL AND PATENT, ON BLAKE CATHETER DRAINING URINE, ATTENDED ALL NEEDS,BED LOCKED, CALL LIGHTS WITHIN REACH, WILL ENDORSE TO AM RN FOR CHANEL.
[2020-07-07 08:45] LABS: BASOPHILS % (AUTO) 0.1 % (0.0-2.0); HEMATOCRIT 30 % (33-45); HEMOGLOBIN 9.6 g/dL (11.5-14.8); LYMPHOCYTES # (AUTO) 0.2 /CMM (0.8-4.8); LYMPHOCYTES % (AUTO) 1.9 % (20.0-44.0); MEAN CORPUSCULAR HGB CONC 33 g/dl (31.0-36.0); MEAN CORPUSCULAR VOLUME 94 fL (82-100); MONOCYTES # (AUTO) 0.1 /CMM (0.1-1.30); NEUTROPHILS # (AUTO) 12.6 /CMM (1.8-8.9); PLATELET COUNT (AUTO) 95 /CMM (150-450); RED BLOOD CELL COUNT(AUTO) 3.16 MIL/uL (4.0-5.2)
[2020-07-07 08:54] LABS: CALCIUM, SERUM 8.1 mg/dL (8.5-10.1); CARBON DIOXIDE 24 mmol/L (21-32); CHLORIDE 102 mmol/L (98-107); CREATININE 2.1 mg/dL (0.6-1.3); GLUCOSE 133 mg/dL (74-106); POTASSIUM 5.1 mmol/L (3.5-5.1); SODIUM SERUM 134 mmol/L (136-145)
[2020-07-07 08:57] LABS: UREA NITROGEN, BLOOD 88 mg/dL (7-18)
[2020-07-07] MEDS: PANTOPRAZOLE 40 MG/PACK PACK GT SCH ×2 (09:04→21:07)
[2020-07-07] MEDS: hydrALAZINE HCL 50 MG TABLET PO SCH ×3 (09:04→16:37)
[2020-07-07] MEDS: MULTIVITAMINS,THERAGRAN 1 UDTAB TABLET GT SCH (09:04)
[2020-07-07] MEDS: CLOTRIMAZOLE 1% 15 GM TUBE TP SCH ×2 (09:05→16:38)
[2020-07-07] MEDS: LISINOPRIL (10MG) 10 MG TABLET GT SCH (09:05)
[2020-07-07] MEDS: HYDROGEL DRESSING 90 GM TUBE TP SCH (09:06)
[2020-07-07] MEDS: NITROGLYCERIN 30 GM TUBE TP SCH ×2 (09:07→21:08)
[2020-07-07 09:21] LABS: LYMPHOCYTES % (MANUAL) 3 % (16-48); MONOCYTES % (MANUAL) 2 % (0-11.0); NEUTROPHILS % (MANUAL) 95 (42-76)
[2020-07-07 10:24] LABS: BASOPHILS % (AUTO) 0.2 % (0.0-2.0); EOSINOPHILS % (AUTO) 0.1 % (0.0-6.0); HEMATOCRIT 29 % (33-45); HEMOGLOBIN 9.8 g/dL (11.5-14.8); LYMPHOCYTES # (AUTO) 0.2 /CMM (0.8-4.8); LYMPHOCYTES % (AUTO) 1.8 % (20.0-44.0); MEAN CORPUSCULAR HGB CONC 34 g/dl (31.0-36.0); MEAN CORPUSCULAR VOLUME 92 fL (82-100); MONOCYTES # (AUTO) 0.2 /CMM (0.1-1.30); MONOCYTES % (AUTO) 1.4 % (2.0-12.0); NEUTROPHILS # (AUTO) 11.9 /CMM (1.8-8.9); NEUTROPHILS % (AUTO) 96.5 % (43.0-81.0); PLATELET COUNT (AUTO) 93 /CMM (150-450); RED BLOOD CELL COUNT(AUTO) 3.16 MIL/uL (4.0-5.2); WHITE BLOOD COUNT (AUTO) 12.4 K/uL (4.3-11.0)
--- NOTE | 2020-07-07 11:23 | NUR ---
MS/FIELD APPLICATION ENGINEER RESULT LABS REVIEWED HEMOGLOBIN AND HEMATOCRIT INCREASED TO HGB 9.8 AND HCT 29.
[2020-07-07] MEDS: METOCLOPRAMIDE HCL 10 MG/10 ML UDC GT SCH ×2 (13:15→21:07)
--- NOTE | 2020-07-07 18:23 | NUR ---
MS/RN CLOSING NOTE PATIENT REMAINS IN STABLE CONDITION. ALERT TO SELF, VS STABLE. SAT ON 5L 92%. PATIENT NEEDS TO BE MONITORED FOR NASAL CANNULA ADJUSTMENT SHE REMOVES NASAL CANNULA OFTEN. TOLERATING GTUBE FEEDING, NO RESIDUAL NOTED. ALL MEDICATIONS GIVEN VIA GTUBE. PROVIDED WOUND CARE ORDERED, PATIENT TOLERATED WELL. PATIENT WAS REPOSITIONED EVERY 2 HOURS TO PREVENT FURTHER SKIN BREAKDOWN. HEELS OFFLOADED, SKIN KEPT CLEAN AND DRY. ZGUARD AT BEDSIDE AND USED NEEDED. WILL ENDORSE TO AGRICULTURE WORKER.
--- NOTE | 2020-07-07 20:25 | NUR ---
MS RN OPENING NOTE: Patient in bed sleeping comfortably. Patient breathing well on 5L Oxygen via nasal canula. No SOB or respiratory distress noted. Noted pierce catheter draining clear yellow output. IV access on left forearm, 20 gauge, dressing dry and intact, patent, no redness, or infiltration. Safety precaution is in place, bed is in the lowest level, bed is locked, alarm is on, side rails x2 are up, and call light is within reach. Will continue to monitor.
[2020-07-08] MEDS: IPRATROPIUM NEB FS 0.5 MG/2.5 ML AMPUL.NEB NEB SCH ×6 (00:17→20:13)
[2020-07-08] MEDS: NIFEdipine (10MG) 10 MG CAPSULE PO SCH ×3 (04:52→20:59)
[2020-07-08 06:50] LABS: BASOPHILS # (AUTO) 0.1 /CMM (0.0-0.2); BASOPHILS % (AUTO) 0.4 % (0.0-2.0); HEMATOCRIT 28 % (33-45); HEMOGLOBIN 9.3 g/dL (11.5-14.8); LYMPHOCYTES # (AUTO) 0.4 /CMM (0.8-4.8); LYMPHOCYTES % (AUTO) 2.3 % (20.0-44.0); MEAN CORPUSCULAR HGB CONC 34 g/dl (31.0-36.0); MEAN CORPUSCULAR VOLUME 93 fL (82-100); MONOCYTES # (AUTO) 0.2 /CMM (0.1-1.30); MONOCYTES % (AUTO) 1.5 % (2.0-12.0); NEUTROPHILS # (AUTO) 15.2 /CMM (1.8-8.9); NEUTROPHILS % (AUTO) 95.8 % (43.0-81.0); PLATELET COUNT (AUTO) 86 /CMM (150-450); RED BLOOD CELL COUNT(AUTO) 2.96 MIL/uL (4.0-5.2); WHITE BLOOD COUNT (AUTO) 15.8 K/uL (4.3-11.0)
[2020-07-08 07:36] LABS: CALCIUM, SERUM 8.5 mg/dL (8.5-10.1); CARBON DIOXIDE 24 mmol/L (21-32); CHLORIDE 102 mmol/L (98-107); CREATININE 2.4 mg/dL (0.6-1.3); GLUCOSE 126 mg/dL (74-106); POTASSIUM 4.8 mmol/L (3.5-5.1); SODIUM SERUM 137 mmol/L (136-145)
[2020-07-08 07:41] LABS: UREA NITROGEN, BLOOD 106 mg/dL (7-18)
[2020-07-08 08:00] VITALS: BP 130/53
--- NOTE | 2020-07-08 08:04 | NUR ---
MS RN CLOSING NOTE: Patient in bed. No SOB or respiratory distress noted. All needs were met. Safety precaution maintained, bed is in the lowest level, bed is locked, alarm is on, side rails x2 are up, and call light is within reach. Endorsed to AM nurse.
--- NOTE | 2020-07-08 08:06 | NUR ---
RN OPEN NOTES PATIENT IS A/O X 1 WITH NO SIGNS OF DISTRESS 5L OF NASAL CANNULA HUMIDIFIER. G-TUBE INTACT FEEDING NEPRO 35 ML/HR. NO IV PATIENT REMOVED HER IV INSIDE SALES ADMINISTRATOR NURSE ATTEMPTED TO PUT IV X2. R CHEST WALL PERMA CATH. NO SIGNS OF PAIN AT THIS MOMENT. BLAKE CATHETER INTACT. SAFETY MEASURES ARE APPLIED, BED IS LOW AND LOCKED POSITION. SIDE RAILS UP X 2 FOR SAFETY. CALL LIGHT WITHIN REACH. WILL CONTINUE TO MONITOR.
[2020-07-08] MEDS: MULTIVITAMINS,THERAGRAN 1 UDTAB TABLET GT SCH (09:28)
[2020-07-08] MEDS: PANTOPRAZOLE 40 MG/PACK PACK GT SCH ×2 (09:28→20:59)
[2020-07-08] MEDS: METOCLOPRAMIDE HCL 10 MG/10 ML UDC GT SCH ×2 (09:28→20:59)
[2020-07-08] MEDS: LISINOPRIL (10MG) 10 MG TABLET GT SCH (09:29)
[2020-07-08] MEDS: hydrALAZINE HCL 50 MG TABLET PO SCH ×3 (09:29→16:06)
[2020-07-08] MEDS: CLOTRIMAZOLE 1% 15 GM TUBE TP SCH ×2 (09:31→17:27)
[2020-07-08] MEDS: HYDROGEL DRESSING 90 GM TUBE TP PRN (09:32)
[2020-07-08] MEDS: NITROGLYCERIN 30 GM TUBE TP SCH ×2 (09:32→21:00)
[2020-07-08] MEDS: HYDROGEL DRESSING 90 GM TUBE TP SCH (09:33)
[2020-07-08] MEDS: methylPREDNISolone SOD SUCC 40 MG/ML VIAL IV SCH ×2 (10:04→20:59)
[2020-07-08 12:37] LABS: BAND % (MANUAL) 2 % (0.0-5.0); LYMPHOCYTES % (MANUAL) 6 % (16-48); MONOCYTES % (MANUAL) 4 % (0-11.0); NEUTROPHILS % (MANUAL) 88 (42-76)
--- NOTE | 2020-07-08 13:46 | NUR ---
HELD BP MEDS FOR NOW PATIENT WILL BE HAVING HEMODIALYSIS TODAY. BP CURRENTLY 144/79 HR 95. WILL CONTINUE TO MONITOR.
[2020-07-08 13:48] VITALS: BP 144/79
[2020-07-08 16:00] VITALS: BP 161/95
[2020-07-08] MEDS ORDERED: VANCOMYCIN 1 GM in IV D5W 250 ML IV ONE ×2 (16:00→23:00)
--- NOTE | 2020-07-08 16:30 | NUR ---
HD NURSE GOLDY CALLED SAID PATIENT WILL BE HAVING HEMODIALYSIS TOMORROW 07/09/20.
--- NOTE | 2020-07-08 18:27 | NUR ---
RN CLOSED NOTES PATIENT IS A/O X 1 WITH NO SIGNS OF DISTRESS 5L OF NASAL CANNULA HUMIDIFIER. G-TUBE INTACT FEEDING NEPRO 35 ML/HR. IV R WRIST #20 G INTACT WITH SOFT WRIST BILATERAL RESTRAINTS, GOOD CIRCULATION AND NO SIGNA OF WRIST EDEMA. R CHEST WALL PERMA CATH INTACT. NO SIGNS OF PAIN AT THIS MOMENT. BLAKE CATHETER INTACT. HEMODIALYSES WILL BE TOMORROW. PATIENT KEPT CLEAN AND DRY. ALL NEEDS, CARE, TREATMENT AND MEDICATIONS ADMINISTERED ANTICIPATED PER ORDER. SAFETY MEASURES ARE APPLIED, BED IS LOW AND LOCKED POSITION. SIDE RAILS UP X 2 FOR SAFETY. CALL LIGHT WITHIN REACH. WILL ENDORSE TO THE NEXT SOLE STITCHER HAND.
--- NOTE | 2020-07-08 19:29 | NUR ---
MS RN OPENING NOTE: Patient in bed sleeping comfortably. Patient shows no signs of pain or discomfort. Patient is breathing well on 5L of humidified Oxygen. No SOB or respiratory distress noted. IV access noted on right hand, 20 gauge, dressing dry and intact, patent, no redness, or infiltration. Noted right chest wall permacath. Patient on gtube feeding, Nepro @ 35mL/hr. Mcintyre catheter intact draining clear yellow output. Noted soft restraints. Cap refill less than 3 seconds, no brusing, redness, or erythema on bilateral wrist. Safety precaution is in place, bed is in the lowest level, bed is locked, alarm is on, side rails x2 are up, and call light is within reach. Will continue to monitor.
[2020-07-08 19:52] VITALS: BP 155/88
[2020-07-09] MEDS: IPRATROPIUM NEB FS 0.5 MG/2.5 ML AMPUL.NEB NEB SCH ×7 (00:03→23:51)
[2020-07-09] MEDS: NIFEdipine (10MG) 10 MG CAPSULE PO SCH ×3 (04:13→22:05)
[2020-07-09 06:43] LABS: BASOPHILS % (AUTO) 0.2 % (0.0-2.0); HEMATOCRIT 27 % (33-45); LYMPHOCYTES # (AUTO) 0.3 /CMM (0.8-4.8); LYMPHOCYTES % (AUTO) 1.9 % (20.0-44.0); MEAN CORPUSCULAR HGB CONC 33 g/dl (31.0-36.0); MEAN CORPUSCULAR VOLUME 93 fL (82-100); MONOCYTES # (AUTO) 0.3 /CMM (0.1-1.30); MONOCYTES % (AUTO) 1.9 % (2.0-12.0); NEUTROPHILS # (AUTO) 13.9 /CMM (1.8-8.9); PLATELET COUNT (AUTO) 75 /CMM (150-450); RED BLOOD CELL COUNT(AUTO) 2.89 MIL/uL (4.0-5.2); WHITE BLOOD COUNT (AUTO) 14.5 K/uL (4.3-11.0)
--- NOTE | 2020-07-09 06:48 | NUR ---
MS RN CLOSING NOTE: Patient in bed. No SOB or respiratory distress noted. All needs were met. Safety precaution maintained, bed is in the lowest level, bed is locked, alarm is on, side rails x2 are up, and call light is within reach. Will endorse to AM nurse.
[2020-07-09 07:03] LABS: CALCIUM, SERUM 8.3 mg/dL (8.5-10.1); CARBON DIOXIDE 26 mmol/L (21-32); CHLORIDE 102 mmol/L (98-107); CREATININE 2.6 mg/dL (0.6-1.3); GLUCOSE 132 mg/dL (74-106); POTASSIUM 4.9 mmol/L (3.5-5.1); SODIUM SERUM 136 mmol/L (136-145)
[2020-07-09 07:18] LABS: UREA NITROGEN, BLOOD 121 mg/dL (7-18)
--- NOTE | 2020-07-09 07:30 | NUR ---
ms rn received on bed,awake,alert,oriented x 1,not in any form of distress,respirations even and unlabored,no sob noted,noted yo have bilateral lower legs edema,denies pain at this time,hd patient w/ permacath at right subclavian, all needs attended.
[2020-07-09 08:00] VITALS: BP 134/74
[2020-07-09 08:28] LABS: LYMPHOCYTES % (MANUAL) 2 % (16-48); MONOCYTES % (MANUAL) 2 % (0-11.0); NEUTROPHILS % (MANUAL) 96 (42-76)
[2020-07-09] MEDS: HYDROGEL DRESSING 90 GM TUBE TP SCH (09:00)
[2020-07-09] MEDS: MULTIVITAMINS,THERAGRAN 1 UDTAB TABLET GT SCH (10:12)
[2020-07-09] MEDS: methylPREDNISolone SOD SUCC 40 MG/ML VIAL IV SCH ×2 (10:12→22:04)
[2020-07-09] MEDS: PANTOPRAZOLE 40 MG/PACK PACK GT SCH ×2 (10:12→22:04)
[2020-07-09] MEDS: METOCLOPRAMIDE HCL 10 MG/10 ML UDC GT SCH ×2 (10:12→22:04)
[2020-07-09] MEDS: NEPRO 1,000 ML BOTTLE GT PRN (10:13)
[2020-07-09] MEDS: LISINOPRIL (10MG) 10 MG TABLET GT SCH (10:13)
[2020-07-09] MEDS: hydrALAZINE HCL 50 MG TABLET PO SCH ×3 (10:13→17:00)
[2020-07-09] MEDS: HYDROGEL DRESSING 90 GM TUBE TP PRN (10:20)
[2020-07-09] MEDS: NITROGLYCERIN 30 GM TUBE TP SCH ×2 (10:20→22:18)
[2020-07-09] MEDS: CLOTRIMAZOLE 1% 15 GM TUBE TP SCH ×2 (10:20→19:02)
--- NOTE | 2020-07-09 10:22 | NUR ---
MS SHIRLEY DUE MEDS GIVEN VIA G TUBE, TOLERATED WELL, W/O RESIDUAL , WILL CONTINUE TO MONITOR PATIENT.
--- NOTE | 2020-07-09 15:20 | NUR ---
ms rn on bed, no distress noted.
[2020-07-09 16:00] VITALS: BP 148/89
--- NOTE | 2020-07-09 18:30 | NUR ---
ms ysabel mcclain done w/o output, just cleaning,b/p stable,all needs attended.
--- NOTE | 2020-07-09 19:30 | NUR ---
MS RN OPENING NOTE REPORT RECIEVED FROM JORDEN WATSON. PT IN BED BILATERAL WRIST RESTRAINTS ON PER REPORT PT PULLING AT TUBEDS AND IV LINES. PT IN NO APPARENT RESP DISTRESS BREATHING EVEN AND UNLABORED ON 5LNC HUMIDIFIED OXYGEN. BED DOWN LOCKES BED ALARM ON SRX3 CALL LIGHT WITHIN REACH. WILL CONT TO MONITOR. PT HAD HD TODAY EARLIER WITH NO OUTPUT. WILL CONT TO MONITOR.
[2020-07-09 20:39] VITALS: BP 148/90
--- NOTE | 2020-07-09 23:36 | NUR ---
restraints discontinued; patient given arm sleeve to cover iv site. will cont to monitor behavior.
[2020-07-10] MEDS: IPRATROPIUM NEB FS 0.5 MG/2.5 ML AMPUL.NEB NEB SCH ×5 (02:20→19:30)
[2020-07-10] MEDS: NIFEdipine (10MG) 10 MG CAPSULE PO SCH ×2 (05:39→12:31)
[2020-07-10 06:51] LABS: CALCIUM, SERUM 8.1 mg/dL (8.5-10.1); CARBON DIOXIDE 25 mmol/L (21-32); CHLORIDE 101 mmol/L (98-107); CREATININE 2.2 mg/dL (0.6-1.3); GLUCOSE 131 mg/dL (74-106); POTASSIUM 4.6 mmol/L (3.5-5.1); SODIUM SERUM 136 mmol/L (136-145)
[2020-07-10 07:10] LABS: UREA NITROGEN, BLOOD 99 mg/dL (7-18)
--- NOTE | 2020-07-10 07:39 | NUR ---
MS RN NOTES PATIENT RECEIVED IN BED, SLEEPING AWAKEN BY TOUCH. ALERT AND ORIENTED X1. ON NASAL CANNULA, WITH NO SIGNS OF RESPIRATORY DISTRESS AT THIS TIME, WITH EVEN NON-LABORED BREATHING. PATIENT PRESENT WITH NO APPARENT DISTRESS AT THIS TIME. SKIN WARM AND DRY TO TOUCH. IV ACCESS INTACT AND PATENT. G-TUBE SITE IN PLACE,INFUSING NEPRO at 35ml/hr. BLAKE CATHETER IN PLACE WITH URINE OUTPUT FLOWING BY GRAVITY. PATIENT PRESENTS WITH NO SIGNS OF PAIN OR DISCOMFORT AT THIS TIME. SAFETY PRECAUTIONS IMPLEMENTED WITH BED LOCKED, BED IN THE LOWEST POSITION, BILATERAL SIDE RAILS UP, BED ALARM ON, AND CALL LIGHT WITHIN EASY REACH OF THE PATIENT. WILL CONTINUE TO MONITOR.
[2020-07-10 08:00] VITALS: BP 112/64
[2020-07-10] MEDS: methylPREDNISolone SOD SUCC 40 MG/ML VIAL IV SCH (08:38)
[2020-07-10] MEDS: MULTIVITAMINS,THERAGRAN 1 UDTAB TABLET GT SCH (08:38)
[2020-07-10] MEDS: PANTOPRAZOLE 40 MG/PACK PACK GT SCH (08:38)
[2020-07-10] MEDS: METOCLOPRAMIDE HCL 10 MG/10 ML UDC GT SCH (08:38)
[2020-07-10] MEDS: LISINOPRIL (10MG) 10 MG TABLET GT SCH (08:38)
[2020-07-10] MEDS: hydrALAZINE HCL 50 MG TABLET PO SCH ×3 (08:39→17:03)
[2020-07-10] MEDS: HYDROGEL DRESSING 90 GM TUBE TP SCH (08:40)
[2020-07-10] MEDS: CLOTRIMAZOLE 1% 15 GM TUBE TP SCH ×2 (08:40→17:01)
[2020-07-10] MEDS: NITROGLYCERIN 30 GM TUBE TP SCH (08:41)
--- NOTE | 2020-07-10 14:30 | NUR ---
MS RN NOTES SPOKE WITH BRUNO TREJO REGARDING PATIENT BLAKE CATHETER, STATED TO REMOVE PRIOR DISCHARGE AND MONITOR PATIENT'S OUTPUT. WILL CARRY OUT ORDERS AND MONITOR PATIENT URINE OUTPUT.
[2020-07-10 16:03] VITALS: BP 119/74
--- NOTE | 2020-07-10 16:40 | NUR ---
MS RN NOTES CALLED [facility] AND SPOKE WITH SHIRLEY DURAND, PATIENT WILL BE IN ROOM 30A. PLANNER INTERN TIME WILL BE AT 1800, WILL CONTINUE TO MONITOR PATIENT AT THIS TIME.
[2020-07-10 17:03] VITALS: BP 145/80
--- NOTE | 2020-07-10 18:30 | NUR ---
MS RN NOTES MONITORING PATIENT URINE OUTPUT, NO URINE OUTPUT MADE AFTER REMOVING BLAKE. BLADDER SCAN DONE, MORE THAN 650CC OF URINE SHOWING. INFORMED DR. CARR, ORDER TO REINSERT BLAKE CATHETER. BLAKE CATHETER IN PLACE, WITH URINE FLOWING BY GRAVITY, OKAY TO DISCHARGE WITH BLAKE CATHETER PER MD. WILL AWAIT FOR TRANSPORTATION.
[2020-07-10] MEDS: NEPRO 1,000 ML BOTTLE GT PRN (18:41)
--- NOTE | 2020-07-10 19:37 | NUR ---
TEACHER ASSISTANT NOTES PATIENT AWAKE, ON NASAL CANNULA 5L, TOLERATING OXYGEN WELL, WITH NO SIGNS OF RESPIRATORY DISTRESS WITH EVEN NON-LABORED BREATHING, AND NO SOB NOTED. VITAL SIGNS STABLE. IV ACCESS REMOVED, CATHETER TIP INTACT, APPLIED PRESSURE TO SITE. ID BAND REMOVED. BLAKE CATHETER IN PLACE, FLOWING URINE BY GRAVITY. PATIENT PRESENTS WITH NO PAIN OR DISCOMFORT. EXIT CARE PROVIDED TO PATIENT. ALL BELONGINGS ACCOUNTED FOR. SKIN ASSESSMENT DONE AND PHOTOS IN CHART. PATIENT LEFT UNIT VIA GURNEY ACCOMPANIED BY 2 OPEN END SPINNING OPERATOR.
== END 2020-07-10 19:37 | DRG 166 ==
LOC: ER 19:00 → ICU 20:40 → TELE 07-01 09:27 → MED 07-02 11:36
PROVIDERS: ATTEND Internal Medicine
PROC: 06HM33Z Insertion of Infusion Device into Right Femoral Vein, Percutaneous Approach (ICD-10-PCS; 2020-06-21)
PROC: B54BZZA Ultrasonography of Right Lower Extremity Veins, Guidance (ICD-10-PCS; 2020-06-21)
PROC: 5A1D70Z Performance of Urinary Filtration, Intermittent, Less than 6 Hours Per Day (ICD-10-PCS; 2020-06-21)
PROC: 30233N1 Transfusion of Nonautologous Red Blood Cells into Peripheral Vein, Percutaneous Approach (ICD-10-PCS; 2020-06-23)
PROC: 05HY33Z Insertion of Infusion Device into Upper Vein, Percutaneous Approach (ICD-10-PCS; 2020-06-23)
PROC: 0W993ZZ Drainage of Right Pleural Cavity, Percutaneous Approach (ICD-10-PCS; 2020-06-26)
PROC: 0D20XUZ Change Feeding Device in Upper Intestinal Tract, External Approach (ICD-10-PCS; 2020-06-26)
PROC: 0W9B3ZZ Drainage of Left Pleural Cavity, Percutaneous Approach (ICD-10-PCS; 2020-06-28)
PROC: 05HY33Z Insertion of Infusion Device into Upper Vein, Percutaneous Approach (ICD-10-PCS; principal; 2020-06-29)
PROC: 0JB70ZZ Excision of Back Subcutaneous Tissue and Fascia, Open Approach (ICD-10-PCS; 2020-07-03)
PROC: 0JB90ZZ Excision of Buttock Subcutaneous Tissue and Fascia, Open Approach (ICD-10-PCS; 2020-07-03)
PROC: 0JH63XZ Insertion of Tunneled Vascular Access Device into Chest Subcutaneous Tissue and Fascia, Percutaneous Approach (ICD-10-PCS; 2020-07-08)
PROC: 02HV33Z Insertion of Infusion Device into Superior Vena Cava, Percutaneous Approach (ICD-10-PCS; 2020-07-08)
PROC: B518YZA Fluoroscopy of Superior Vena Cava using Other Contrast, Guidance (ICD-10-PCS; 2020-07-08)
DX: J96.01 Acute respiratory failure with hypoxia (principal); L89.153 Pressure ulcer of sacral region, stage 3; G92 Toxic encephalopathy; E43 Unspecified severe protein-calorie malnutrition; I21.A1 Myocardial infarction type 2; J15.6 Pneumonia due to other Gram-negative bacteria; I50.33 Acute on chronic diastolic (congestive) heart failure; N18.6 End stage renal disease; N17.0 Acute kidney failure with tubular necrosis; L89.313 Pressure ulcer of right buttock, stage 3; I13.2 Hypertensive heart and chronic kidney disease with heart failure and with stage 5 chronic kidney disease, or end stage renal disease; D68.69 Other thrombophilia; E87.0 Hyperosmolality and hypernatremia; N39.0 Urinary tract infection, site not specified; Z16.12 Extended spectrum beta lactamase (ESBL) resistance; B37.49 Other urogenital candidiasis; J44.0 Chronic obstructive pulmonary disease with (acute) lower respiratory infection; R18.8 Other ascites; J96.02 Acute respiratory failure with hypercapnia; Z86.73 Personal history of transient ischemic attack (TIA), and cerebral infarction without residual deficits; D63.1 Anemia in chronic kidney disease; E78.5 Hyperlipidemia, unspecified; E87.5 Hyperkalemia; E83.39 Other disorders of phosphorus metabolism; F03.90 Unspecified dementia, unspecified severity, without behavioral disturbance, psychotic disturbance, mood disturbance, and anxiety; I25.10 Atherosclerotic heart disease of native coronary artery without angina pectoris; R13.10 Dysphagia, unspecified; Z93.1 Gastrostomy status; N25.0 Renal osteodystrophy; D69.59 Other secondary thrombocytopenia; F09 Unspecified mental disorder due to known physiological condition; B96.20 Unspecified Escherichia coli [E. coli] as the cause of diseases classified elsewhere; E88.09 Other disorders of plasma-protein metabolism, not elsewhere classified; M62.50 Muscle wasting and atrophy, not elsewhere classified, unspecified site; M89.9 Disorder of bone, unspecified; Z86.2 Personal history of diseases of the blood and blood-forming organs and certain disorders involving the immune mechanism; I34.0 Nonrheumatic mitral (valve) insufficiency; I27.20 Pulmonary hypertension, unspecified; I48.91 Unspecified atrial fibrillation
CPT/HCPCS: 31720; 36410; 36415; 36600; 71045-TC; 74018; 76770-TC; 80048-TC; 80053-TC; 80061-TC; 80202-TC; 81000-TC; 82550-TC; 82570-TC; 82728-TC; 82803-TC; 82962-TC; 83540-TC; 83605-TC; 83615-TC; 83735-TC; 83880; 83970; 84100-TC; 84155; 84155-TC; 84165; 84300-TC; 84439-TC; 84443-TC; 84484-TC; 85025-TC; 85027-TC; 85378-TC; 85385-TC; 85610-TC; 85730-TC; 86140-TC; 86704; 86705; 86706; 86803; 86850-TC; 87040-TC; 87070-TC; 87075-TC; 87081-TC; 87086-TC; 87102-TC; 87186-TC; 87340; 88108-TC; 88305-TC; 88312-TC; 89051-TC; 90935-TC; 92526; 92611-TC; 93307-TC; 94760-TC; 94762-TC; 94799-TC; A4216; A4217; A6248; A6253; A6403; C1750; C9113; G0378; J0282; J1160; J1644; J1815; J1940; J1956; J2185; J2248; J2920; J2930; J3370; J3490; J7030; J7050; J7060; J7070; J8597; P9016-BL; P9047; Q9963; U0003-CS

== ENCOUNTER 2020-07-14 11:20 | Inpatient (IN) | payer MEDICARE, OTHER ==
[~2020-07-14] VITALS: Ht 152.4 cm; Wt 54.4 kg
[2020-07-14] VITALS (10 sets, daily range): BP systolic 127–138; BP diastolic 71–91
[~2020-07-14 11:20] MED LIST: ASCO500C16 GT; LISI10TA5 GT; MULT-754 GT; PANT40TA49 GT; SOTA80TA GT; ZINC1CAP3 GT
--- NOTE | 2020-07-14 11:49 | NUR ---
YANNA FROM [facility] TO ER BED 5. AWAKE BUT CONFUSED. NOT IN RESP DISTRESS. ON 02 VIA NC @ 5LPM BASELINE. BEDBOUND.BROUGHT IN FOR ABNORMAL LABS WITH RESULT OF HGB 5.2, HCT 15.3. PT IS HD PT, WITH LAST SESSION YESTERDAY AND WAS COMPLETED. (T,TH,S - HD DAYS). WAS AT THE BEDSIDE FOR EVAL. ORDERS RECEIVED, NOTED AND CARRIED OUT. IV LINE ESTABLISHED ON LFA 20G AND AN EXISTING LINE ON L HAND 22G FROM THE FACILITY. PRESENTED WITH F/C UPON ARRIVAL.
[2020-07-14] MEDS ORDERED: BISA10SU11 RC (11:59)
[2020-07-14] MEDS ORDERED: NIFE20CA GT (11:59)
[2020-07-14] MEDS ORDERED: MULT-447 GT (11:59)
[2020-07-14] MEDS ORDERED: IPRA3AMP23 IH (11:59)
[2020-07-14] MEDS ORDERED: VANC500V IV (11:59)
[2020-07-14] MEDS ORDERED: MAGN400O6 GT (11:59)
[2020-07-14] MEDS ORDERED: METO-295 GT (11:59)
[2020-07-14] MEDS ORDERED: NA P133E RC (11:59)
[2020-07-14] MEDS ORDERED: NITR1OIN2 TD (11:59)
[2020-07-14] MEDS ORDERED: MAG30ORA GT (11:59)
[2020-07-14] MEDS ORDERED: HYDR100T27 GT (11:59)
[2020-07-14] MEDS ORDERED: PANT40SU2 GT (11:59)
--- NOTE | 2020-07-14 12:18 | NUR ---
CALLED [facility]. ACOUSTICAL TILE CARPENTERS SUPERVISOR WAS PAGED
[2020-07-14 12:23] LABS: BASOPHILS % (AUTO) 0.4 % (0.0-2.0); EOSINOPHILS % (AUTO) 1.4 % (0.0-6.0); LYMPHOCYTES # (AUTO) 0.4 /CMM (0.8-4.8); LYMPHOCYTES % (AUTO) 5.9 % (20.0-44.0); MEAN CORPUSCULAR HGB CONC 34 g/dl (31.0-36.0); MEAN CORPUSCULAR VOLUME 97 fL (82-100); MONOCYTES # (AUTO) 0.2 /CMM (0.1-1.30); MONOCYTES % (AUTO) 2.9 % (2.0-12.0); NEUTROPHILS # (AUTO) 5.4 /CMM (1.8-8.9); NEUTROPHILS % (AUTO) 89.4 % (43.0-81.0)
[2020-07-14 12:24] LABS: HEMOGLOBIN 5.3 g/dL (11.5-14.8); RED BLOOD CELL COUNT(AUTO) 1.63 MIL/uL (4.0-5.2)
[2020-07-14 12:25] LABS: HEMATOCRIT 16 % (33-45); PLATELET COUNT (AUTO) 37 /CMM (150-450)
[2020-07-14 12:30] LABS: CALCIUM, SERUM 7.4 mg/dL (8.5-10.1); CARBON DIOXIDE 27 mmol/L (21-32); CHLORIDE 99 mmol/L (98-107); CREATININE 1.7 mg/dL (0.6-1.3); GLUCOSE 116 mg/dL (74-106); SODIUM SERUM 134 mmol/L (136-145); UREA NITROGEN, BLOOD 53 mg/dL (7-18)
[2020-07-14 12:36] LABS: ALANINE AMINOTRANSFERASE 89 U/L (12-78); ALBUMIN 1.6 g/dL (3.4-5.0); ALKALINE PHOSPHATASE 204 U/L (46-116); ASPARTATE AMINOTRANSFERASE 127 U/L (15-37); BILIRUBIN,DIRECT 0.4 mg/dL (0.0-0.2); BILIRUBIN,TOTAL 1.4 mg/dL (0.2-1.0); TOTAL PROTEIN, SERUM 4.3 g/dL (6.4-8.2)
[2020-07-14 12:48] LABS: BAND % (MANUAL) 21 % (0.0-5.0); EOSINOPHILS % (MANUAL) 2 % (0-4); LYMPHOCYTES % (MANUAL) 8 % (16-48); MONOCYTES % (MANUAL) 4 % (0-11.0); NEUTROPHILS % (MANUAL) 65 (42-76)
--- NOTE | 2020-07-14 12:56 | NUR ---
room 202
[2020-07-14] MEDS ORDERED: LEVOFLOXACIN 750 MG /D5W 150ML PIGGYBACK IV ONE (13:00)
[2020-07-14] MEDS ORDERED: LEVOFLOXACIN 750 MG /D5W 150ML 150 ML IV ONE (13:01)
--- NOTE | 2020-07-14 13:14 | NUR ---
REPORT GIVEN TO SHIRLEY SMITH FOR CHANEL
[2020-07-14] MEDS ORDERED: ONDANSETRON HCL/PF 4 MG/2 ML VIAL IVP PRN (13:30)
[2020-07-14] MEDS ORDERED: ACETAMINOPHEN 325 MG TABLET PO PRN (13:30)
[2020-07-14] MEDS ORDERED: Z GUARD REMEDY 2 OZ OINT TP PRN (13:30)
--- NOTE | 2020-07-14 13:37 | NUR ---
PT TRANSPORTED TO UNIT ON [facility] WITH EMT AND RN AT BEDSIDE. NAD NOTED.
--- NOTE | 2020-07-14 14:00 | NUR ---
CONSENT CONSENT OBTAINED VIA PHONE FROM PTS ISAAC HINES FOR BLOOD TRANFUSION. VERIFIED WITH ROSEMARY WATSON.
--- NOTE | 2020-07-14 14:15 | NUR ---
CONSENT CONSENT OBTAINED VIA PHONE FROM PTS SON CARISSA HINES FOR HEMODIALYSIS. VERIFIED WITH ROSEMARY WATSON AND [facility] DIALYSIS NURSE.
--- NOTE | 2020-07-14 14:20 | NUR ---
ADMISSION ORDERS NOTIFIED DR. HOLT OF PTS ADMISSION TO THE FLOOR. PER MD HE WILL PUT ADMISSION ORDERS AND VERIFY MED RECON
--- NOTE | 2020-07-14 14:30 | NUR ---
DIALYSIS/TRANSFUSION DIALYSIS NURSE [place] CURRENTLY BY BEDSIDE. PRBC BEING TRANSFUSED VIA CENTRAL LINE.
--- NOTE | 2020-07-14 15:02 | NUR ---
TROPONIN PT HAS CRITICAL TROPONIN VALUE OF 5.190. CALLED AND PAGED DR. HOLT. AWAITING CALL BACK.
--- NOTE | 2020-07-14 15:15 | NUR ---
TROPONIN CALLED AND PAGED DR. HOLT AND NOTIFIED MD OF PTS TROPONIN LEVELS OF 5.190. PER MD TO NOTIFY DR. BARRAGAN CARDIOLOGY.
--- NOTE | 2020-07-14 15:30 | NUR ---
TROPONIN DR. BARRAGAN MADE AWARE OF PTS TROPONIN LEVELS OF 5.190. ALSO RELAYED PTS EKG RESULTS FROM THE ER TO DR. BARRAGAN. PER DR. BARRAGAN, NO NEW ORDERS FOR NOW.
--- NOTE | 2020-07-14 15:48 | NUR ---
TRANSFUSION 1 UNIT PRBC TRANSFUSION ONGOING. NO TRANSFUSION REACTIONS NOTED
--- NOTE | 2020-07-14 16:10 | NUR ---
TRANSFUSION 1 UNIT PRBC TRANSFUSION COMPLETED. DIALYSIS STILL CURRENTLY ONGOING. [facility]IAL[facility]IS NURSE BY BEDSIDE
--- NOTE | 2020-07-14 16:30 | NUR ---
DIALYSIS DIALYSIS COMPLETED 1.5L TAKEN OUT PER DIALYSIS NURSE
--- NOTE | 2020-07-14 18:00 | NUR ---
BODY CHECK BODY CHECK DONE. PHOTOS TAKEN AND PLACED IN CHART. WOUND CONSULT ORDERED, PT ALREADY ON I MATTRESS
--- NOTE | 2020-07-14 19:30 | NUR ---
CARE TECHNICIAN OPEN NOTED PATIENT IS LAYING IN BED. A/O X1. ON 5L NASAL CANULA, NO SOB/ ACUTE RESPIRATORY DISTRESS NOTED. BED IS IN LOWEST LOCKED POSITION WITH SIDE RAILS UP X3 SEMI FOWLERS. CALL LIGHT IS WITHIN REACH. WILL CONTINUE TO MONITOR.
--- NOTE | 2020-07-14 20:16 | NUR ---
BLOOD BANK CUSTODIAN NOTES NOTIFIED MD REGARDING PT'S TROPONIN RESULTS OF 5.622 . NOTIFIED MD ABOUT HER EARLIER RESULTS WHICH WAS 5.190. NO NEW ORDERS GIVEN. WILL CONTINUE TO MONITOR PT.
[2020-07-15] VITALS (13 sets, daily range): BP systolic 118–157; BP diastolic 56–91
--- NOTE | 2020-07-15 06:29 | NUR ---
BROACHING MACHINE REPAIRER CLOSE NOTES PATIENT IS LAYING IN BED. A/O X1. ON 5L NASAL CANULA, NO SOB/ ACUTE RESPIRATORY DISTRESS NOTED. TELE MONITOR READING SR WITH OCCASIONAL PAC'S, 93. G TUBE IN PLACE RECEIVING FEEDING @ 35 MLS/HR. BLAKE CATHETER IN PLACE 150 ML OUTPUT. SHOWS NO SIGNS OF PAIN OR DISTRESS AT THE MOMENT. BED IS IN LOWEST LOCKED POSITION WITH SIDE RAILS UP X3, SEMI FOWLERS. CALL LIGHT IS WITHIN REACH. WILL ENDORSE TO AM NURSE.
[2020-07-15 07:44] LABS: CHOLESTEROL 130 mg/dL (<200); HDL CHOLESTEROL 50 mg/dL (40-60); LDL 66 mg/dL (0-99); TRIGLYCERIDES 91 mg/dL (30-150)
--- NOTE | 2020-07-15 07:45 | NUR ---
RN NOTES RECEIVED PT IN BED, ASLEEP AND EASILY AROUSED, A/OX1. PT ON SUPPLEMENTARY OXYGEN AT 4L VIA NC, TOLERATING AND NO ACUTE RESPIRATORY DISTRESS. ON TELEMONITORING WITH SR HR69. PT NOT EXHIBITING ANY PAIN OR DISCOMFORT AT THIS TIME. RIGHT UPPER CHEST PERMACATH NOTED FOR HD ACCESS. ON GOING GT FEEDING JEVITY 1.2 AT 35ML/HR, WITH 30 ML RESIDUAL. PT KEPT COMFORTABLE. HOB ELEVATED. CALL LIGHT KEPT WITHIN REACH. PT'S BED IN LOWEST, LOCKED POSITION WITH SRX3. WILL CONTINUE PLAN OF CARE. WILL CONTINUE PLAN OF CARE.
[2020-07-15 07:52] LABS: ALANINE AMINOTRANSFERASE 107 U/L (12-78); ALBUMIN 1.6 g/dL (3.4-5.0); ALKALINE PHOSPHATASE 266 U/L (46-116); ASPARTATE AMINOTRANSFERASE 143 U/L (15-37); BILIRUBIN,TOTAL 1.3 mg/dL (0.2-1.0); CARBON DIOXIDE 27 mmol/L (21-32); CHLORIDE 103 mmol/L (98-107); CREATININE 1.6 mg/dL (0.6-1.3); GLUCOSE 101 mg/dL (74-106); MAGNESIUM 1.9 mg/dL (1.8-2.4); PHOSPHORUS 2.7 mg/dL (2.5-4.9); POTASSIUM 4.1 mmol/L (3.5-5.1); SODIUM SERUM 136 mmol/L (136-145); TOTAL PROTEIN, SERUM 4.6 g/dL (6.4-8.2); UREA NITROGEN, BLOOD 43 mg/dL (7-18)
[2020-07-15 08:01] LABS: BASOPHILS % (AUTO) 0.6 % (0.0-2.0); EOSINOPHILS % (AUTO) 2.8 % (0.0-6.0); HEMATOCRIT 22 % (33-45); HEMOGLOBIN 7.4 g/dL (11.5-14.8); LYMPHOCYTES # (AUTO) 0.3 /CMM (0.8-4.8); LYMPHOCYTES % (AUTO) 6.4 % (20.0-44.0); MEAN CORPUSCULAR HGB CONC 34 g/dl (31.0-36.0); MEAN CORPUSCULAR VOLUME 97 fL (82-100); MONOCYTES # (AUTO) 0.2 /CMM (0.1-1.30); NEUTROPHILS # (AUTO) 4.7 /CMM (1.8-8.9); NEUTROPHILS % (AUTO) 87.2 % (43.0-81.0); RED BLOOD CELL COUNT(AUTO) 2.24 MIL/uL (4.0-5.2); WHITE BLOOD COUNT (AUTO) 5.4 K/uL (4.3-11.0)
[2020-07-15 08:09] LABS: PLATELET COUNT (AUTO) 28 /CMM (150-450)
[2020-07-15 08:54] LABS: IRON, SERUM 62 ug/dl (50-175); TOTAL IRON BINDING CAPACITY 149 ug/dl (250-450)
[2020-07-15 09:42] LABS: FERRITIN 4178 ng/mL (8-388)
[2020-07-15] MEDS: PANTOPRAZOLE 40 MG/PACK PACK GT SCH ×2 (11:14→22:50)
[2020-07-15] MEDS: NITROGLYCERIN PACKET 1 GM PACKET TD SCH ×2 (11:23→22:50)
--- NOTE | 2020-07-15 11:42 | NUR ---
WOUND CARE CONSULT: REVIEWED CHART, NURSING DOCUMENTATION AND PHOTOS WHICH INDICATE MULTIPLE AREAS OF SKIN DISCOLORATION, LEFT ANKLE OPEN BLISTER, RT ANKLE DISCOLORATION, LEFT ELBOW DISCOLORATION, SKIN CONDITION WITH DISCOLORATION TO BACK AND CHEST, SACRAL DEEP TISSUE INJURY IN EVOLUTION, INTACT BLISTER TO RT RIB AREA, ALL PRESENT ON ADMISSION. RECOMMENDATIONS MADE FOR SKIN PROTECTION AND WOUND CARE. RECOMMEND SURGICAL AND DPM CONSULTS. DR CLARE ASHBY AND DR GOINS NOTIFIED OF CONSULT REQUESTS. PT IS ON SLIGO ISOFLEX LOW AIRLOSS BED. MD IN AGREEMENT WITH PLAN OF CARE.
[2020-07-15] MEDS ORDERED: FAMOTIDINE/PF INJ 20 MG/2 ML VIAL IV SCH (15:00)
[2020-07-15] MEDS ORDERED: VANCOMYCIN 1 GM in IV D5W 250 ML IV ONE (15:30)
--- NOTE | 2020-07-15 16:25 | NUR ---
RN NOTES PT AWAKE, A/OX1. PT ON SUPPLEMENTARY OXYGEN AT 4L VIA NC, TOLERATING AND NO ACUTE RESPIRATORY DISTRESS. ON TELEMONITORING WITH SR HR 80. PT NOT EXHIBITING ANY PAIN OR DISCOMFORT AT THIS TIME. RIGHT UPPER CHEST PERMACATH NOTED FOR HD ACCESS. ON GOING GT FEEDING JEVITY 1.2 AT 35ML/HR. ONGOING IV VANCO TO RFA G22, INTACT AND INFUSING WELL. PT KEPT COMFORTABLE. HOB ELEVATED. CALL LIGHT KEPT WITHIN REACH. PT'S BED IN LOWEST, LOCKED POSITION WITH SRX3. WILL CONTINUE PLAN OF CARE. ENDORSED TO SHIRLYE/KWAKU FOR CHANEL. PT NEEDED 1PRBC TODAY AND TO COLLECT STOOL FOR OB WELL.
--- NOTE | 2020-07-15 16:25 | NUR ---
PRESS OPERATOR [employer] NOTES RECEIVED PATIENT FROM SHIRLEY LEONE. ORIENTED PATIENT TO ROOM, UNIT AND CALL LIGHT. ON TELE MONITORING SR. NO SOB. ON O2 AT 4L/MIN VIA NC. DENIES ANY C/O PAIN NOR DISCOMFORT AT THIS TIME. GT INTACT AND PATENT INFUSING JEVITY 1.2 AT 35ML/HR, NO RESIDUAL. AWAITING FOR BLOOD TO BE READY. BED IN LOWEST POSITION, LOCKED. BED ALARM ON.
--- NOTE | 2020-07-15 18:35 | NUR ---
KAIAWHINA NOTES WENT TO BLOOD BANK, STAFF OUT TO BREAK AND IS THE ONLY PERSON TO RELEASE BLOOD. WILL RETURN AGAIN.
--- NOTE | 2020-07-15 18:57 | NUR ---
CASTING HOUSE LABORER NOTES PATIENT RESTING COMFORTABLY IN BED. HOB ELEVATED. NO S/S OF RESPIRATORY DISTRESS. REMAIN ON O2 AT 4L/MIN VIA NC KATTY WELL. DENIES ANY C/O PAIN NOR DISCOMFORT AT THIS TIME. GT INTACT AND PATENT INFUSING JEVITY 1.2 AT 35ML/HR, NO RESIDUAL OBSERVED DURING THE SHIFT. RIGHT UPPER CHEST WALL PERMA-CATH IN PLACE WITH DRESSING INTACT. RFA #22 SL INTACT AND PATENT. BED IN LOWEST POSITION, LOCKED. BED ALARM ON. IN NO APPARENT DISTRESS.
--- NOTE | 2020-07-15 19:30 | NUR ---
TRANSACTIONAL ATTORNEY PM OPENING NOTE PATIENT RESTING IN BED. HOB ELEVATED. NO S/S OF RESPIRATORY DISTRESS. ON O2 AT 4L/MIN VIA NC RESP EVEN AND UNLABORED. FLACC SCALE OF 0 AT THIS TIME IN NO APPARENT PAIN OR DISTRESS. GT INTACT AND PATENT INFUSING JEVITY 1.2 AT 35ML/HR, NO RESIDUAL UPON ASPIRATION. RIGHT UPPER CHEST WALL PERMA-CATH IN PLACE WITH DRESSING INTACT. RFA #22 SL INTACT AND PATENT. BED IN LOWEST POSITION, LOCKED. BED ALARM ON. PER REPORT FROM KWAKU WATSON. PLAN IS TO HAVE 1 UNIT OF PRBC GIVEN TONIGHT BLOOD IS READY AT BLOOD BANK WILL CONT TO MONITOR.
[2020-07-16] VITALS (7 sets, daily range): BP systolic 113–175; BP diastolic 65–97
[2020-07-16 00:38] LABS: APPEARANCE,URINE CLOUDY (CLEAR); BILIRUBIN,URINE NEGATIVE (NEGATIVE); BLOOD, URINE LARGE Ery/uL (NEGATIVE); COLOR,URINE DARK YELLO (YELLOW); KETONES,URINE NEGATIVE (NEGATIVE); LEUKOCYTE ESTERASE ,URINE LARGE (NEGATIVE); NITRITE, URINE NEGATIVE (NEGATIVE); PROTEIN,URINE 100 mg/dl (NEGATIVE); UGLUCOSE NEGATIVE (NEGATIVE); UROBILINOGEN,URINE 0.2 EU/dL (0.2)
[2020-07-16 00:56] LABS: RBC,URINE 21-50 /HPF (0-2); WBC,URINE 21-50 /HPF (0-3)
[2020-07-16 00:57] LABS: BACTERIA,URINE Many /HPF (None Seen); SQUAMOUS EPITHELIAL CELL,UR Few /HPF (None Seen); YEAST,URINE Many /HPF (None Seen)
[2020-07-16 01:03] LABS: OCCULT BLOOD STOOL POSITIVE (NEGATIVE)
[2020-07-16] MEDS: JEVITY 1.2 CAL 1,000 ML BOTTLE GT PRN (05:15)
[2020-07-16] MEDS ORDERED: VANCOMYCIN 500 MG in IV D5W 100 ML IV PRN (06:00)
--- NOTE | 2020-07-16 06:32 | NUR ---
spoke with sarai delivery tech regaurding bp at 0400 with sbp above 170. new order for hydralazine recieved. at this time bp went down to 152/91 will cont to monitor. so no hydralizaine given.
--- NOTE | 2020-07-16 06:50 | NUR ---
STEVEDORING SUPERVISOR PM CLOSING NOTE PATIENT RESTING IN BED. HOB ELEVATED. NO S/S OF RESPIRATORY DISTRESS. ON O2 AT 4L/MIN VIA NC RESP EVEN AND UNLABORED. FLACC SCALE OF 0 AT THIS TIME IN NO APPARENT PAIN OR DISTRESS. GT INTACT AND PATENT INFUSING JEVITY 1.2 AT 35ML/HR, RESIDUAL OF 20ML UPON ASPIRATION. RIGHT UPPER CHEST WALL PERMA-CATH IN PLACE WITH DRESSING INTACT. LFA #20 SL INTACT AND PATENT. BED IN LOWEST POSITION, LOCKED. BED ALARM ON. 1 UNIT OF PRBC GIVEN LAST NIGHT.
[2020-07-16 07:20] LABS: BASOPHILS % (AUTO) 0.5 % (0.0-2.0); EOSINOPHILS % (AUTO) 3.3 % (0.0-6.0); HEMATOCRIT 25 % (33-45); HEMOGLOBIN 8.5 g/dL (11.5-14.8); LYMPHOCYTES # (AUTO) 0.4 /CMM (0.8-4.8); LYMPHOCYTES % (AUTO) 6.7 % (20.0-44.0); MEAN CORPUSCULAR HGB CONC 34 g/dl (31.0-36.0); MEAN CORPUSCULAR VOLUME 95 fL (82-100); MONOCYTES # (AUTO) 0.2 /CMM (0.1-1.30); MONOCYTES % (AUTO) 3.6 % (2.0-12.0); NEUTROPHILS # (AUTO) 4.9 /CMM (1.8-8.9); NEUTROPHILS % (AUTO) 85.9 % (43.0-81.0); RED BLOOD CELL COUNT(AUTO) 2.62 MIL/uL (4.0-5.2); WHITE BLOOD COUNT (AUTO) 5.6 K/uL (4.3-11.0)
[2020-07-16 07:32] LABS: THYROID STIMULATING HORMONE 9.394 uIU/mL (0.358-3.74)
[2020-07-16 07:34] LABS: ALANINE AMINOTRANSFERASE 98 U/L (12-78); ALBUMIN 1.6 g/dL (3.4-5.0); ALKALINE PHOSPHATASE 254 U/L (46-116); ASPARTATE AMINOTRANSFERASE 118 U/L (15-37); BILIRUBIN,TOTAL 1.5 mg/dL (0.2-1.0); CALCIUM, SERUM 7.7 mg/dL (8.5-10.1); CARBON DIOXIDE 25 mmol/L (21-32); CHLORIDE 102 mmol/L (98-107); CREATININE 1.7 mg/dL (0.6-1.3); GLUCOSE 89 mg/dL (74-106); MAGNESIUM 1.8 mg/dL (1.8-2.4); PHOSPHORUS 2.7 mg/dL (2.5-4.9); POTASSIUM 4.1 mmol/L (3.5-5.1); SODIUM SERUM 135 mmol/L (136-145); TOTAL PROTEIN, SERUM 4.5 g/dL (6.4-8.2); UREA NITROGEN, BLOOD 47 mg/dL (7-18)
[2020-07-16 07:39] LABS: PLATELET COUNT (AUTO) 18 /CMM (150-450)
--- NOTE | 2020-07-16 07:55 | NUR ---
RN NOTES GET CRITICAL LAB RESULT TROPONIN -5.726, PLAT -18, NOTIFIED GRAPE PICKER Dr BIRD AND NO NEW ORDERS, CONTINUED MONITORING.
[2020-07-16] MEDS: SILVER SULFADIAZINE CREAM 25 GM TUBE TP SCH (09:23)
[2020-07-16] MEDS: PANTOPRAZOLE 40 MG/PACK PACK GT SCH ×2 (09:23→21:48)
[2020-07-16] MEDS: NITROGLYCERIN PACKET 1 GM PACKET TD SCH ×2 (09:25→21:48)
--- NOTE | 2020-07-16 10:43 | NUR ---
rn notes patient going to have HD at this time.
--- NOTE | 2020-07-16 13:30 | NUR ---
RN NOTES HD FINISH AT THIS TIME, OUTPUT WAS 1000ML
[2020-07-16] MEDS: ALBUMIN 25% 25 GM in PREMIX 1 EA IV SCH ×2 (15:27→21:48)
[2020-07-16 15:40] LABS: BASOPHILS % (AUTO) 0.3 % (0.0-2.0); EOSINOPHILS % (AUTO) 2.3 % (0.0-6.0); HEMATOCRIT 24 % (33-45); HEMOGLOBIN 8.4 g/dL (11.5-14.8); LYMPHOCYTES # (AUTO) 0.3 /CMM (0.8-4.8); LYMPHOCYTES % (AUTO) 6.6 % (20.0-44.0); MEAN CORPUSCULAR HGB CONC 35 g/dl (31.0-36.0); MEAN CORPUSCULAR VOLUME 95 fL (82-100); MONOCYTES # (AUTO) 0.2 /CMM (0.1-1.30); MONOCYTES % (AUTO) 3.5 % (2.0-12.0); NEUTROPHILS # (AUTO) 4.4 /CMM (1.8-8.9); NEUTROPHILS % (AUTO) 87.3 % (43.0-81.0); RED BLOOD CELL COUNT(AUTO) 2.57 MIL/uL (4.0-5.2); WHITE BLOOD COUNT (AUTO) 5.1 K/uL (4.3-11.0)
[2020-07-16 15:46] LABS: PLATELET COUNT (AUTO) 17 /CMM (150-450)
--- NOTE | 2020-07-16 15:54 | NUR ---
RN NOTES GET LAB RESULT PATELLATE 17 AT THIS TIME. NOTIFIED ONCOLOGY Dr LIN, WAITING FOR ORDERS.
[2020-07-16 16:00] LABS: CALCIUM, SERUM 7.6 mg/dL (8.5-10.1); CARBON DIOXIDE 28 mmol/L (21-32); CHLORIDE 106 mmol/L (98-107); CREATININE 1.5 mg/dL (0.6-1.3); GLUCOSE 127 mg/dL (74-106); SODIUM SERUM 139 mmol/L (136-145); UREA NITROGEN, BLOOD 42 mg/dL (7-18)
[2020-07-16 16:31] LABS: BAND % (MANUAL) 6 % (0.0-5.0); LYMPHOCYTES % (MANUAL) 7 % (16-48); NEUTROPHILS % (MANUAL) 84 (42-76)
[2020-07-16 16:32] LABS: EOSINOPHILS % (MANUAL) 1 % (0-4); MONOCYTES % (MANUAL) 2 % (0-11.0)
[2020-07-16] MEDS ORDERED: ACETAMINOPHEN 325 MG TABLET PO ONE (17:30)
[2020-07-16] MEDS ORDERED: diphenhydrAMINE HCL 50 MG/ML VIAL IV ONE (17:30)
--- NOTE | 2020-07-16 17:36 | NUR ---
RN NOTERS SPOKEN WITH RN ACCESS Dr ILN ABOUT PATELLATE LEVEL. PER MD WILL PUT ORDERS IN THE COMPUTER.
--- NOTE | 2020-07-16 17:54 | NUR ---
rn notes Get consent form TO from patients son name Ismael raman for Platelets, US Guided Thoracentesis, EGD, and Colonoscopy. co-sign with co worker Antonio WATSON.
--- NOTE | 2020-07-16 18:30 | NUR ---
RN NOTES PATIENT CONFUSED, ABLE TO OPEN EYES, REFUSED PAIN,BUT REMOVED TELE BOX, MEDICATION PRESCRIBED VIA GT. KEEP HOB ELEVATED FOR ASPIRATION PRECAUTION. BLAKE CATHETER DRAINING YELLOW OUTPUT. ASSIST TURN AND REPOSTION Q 2 HR. ENDORSED ONCOMING NURSE FOLLOW PLAN OF CARE.
--- NOTE | 2020-07-16 19:16 | NUR ---
ASSISTANCE REPRESENTATIVE OPENING NOTES PATIENT SLEEPING IN BED. A/OX1; LETHARGIC; OPENS EYES TO TOUCH. ON 4L NC; NO S/S OF ACUTE RESPIRATORY DISTRESS; BREATHING IS EVEN AND UNLABORED. NO S/S OF PAIN NOTED. TELE MONITOR READING SINUS TACH, HEART RATE 106. BLAKE CATH PRESENT AND DRAINING WELL. RIGHT UPPER CHEST PERMACATH PRESENT, DRESSING DRY AND INTACT. IV PRESENT ON RIGHT FA SIZE 22 & LEFT FA SIZE 20, BOTH INTACT, PATENT, AND HEP LOCKED. GTUBE FEEDING WITH JEVITY RUNNING AT 35 ML/HR; PATIENT TOLERATING WELL. SAFETY MEASURES IN PLACE AND PATIENT'S NEEDS MET. BED LOCKED, ALARM ON, SIDE RAILS X3, HOB ELEVATED, CALL LIGHT WITHIN REACH. WILL CONTINUE TO MONITOR.
[2020-07-17] VITALS (50 sets, daily range): BP systolic 96–183; BP diastolic 57–121
--- NOTE | 2020-07-17 00:11 | NUR ---
SAT TUTOR NOTES PLATELET TRANSFUSION STARTED. CONSENT IN CHART. VERIFIED WITH CO-RN. VITAL SIGNS - BP: 122/80, HR: 97, RR: 18, TEMP: 97.9. SAFETY MEASURES IN PLACE AND PATIENT'S NEEDS MET. WILL CONTINUE TO MONITOR.
--- NOTE | 2020-07-17 00:53 | NUR ---
ENVELOPE SEALER OPERATOR NOTES PLATELET TRANSFUSION COMPLETED; NO ADVERSE REACTIONS NOTED; NO S/S OF ACUTE RESPIRATORY DISTRESS; BREATHING IS EVEN AND UNLABORED. VITAL SIGNS - BP: 137/73, HR: 102, TEMP: 97.9. WILL CONTINUE TO MONITOR.
--- NOTE | 2020-07-17 01:44 | NUR ---
SCHOOL PLANT CONSULTANT NOTES SECOND BAG OF PLATELET TRANSFUSION COMPLETED. NO ADVERSE REACTIONS NOTED. VITAL SIGNS- BP: 133/75, HR: 101, TEMP 97.8. WILL CONTINUE TO MONITOR.
--- NOTE | 2020-07-17 02:21 | NUR ---
CATHODE RAY TUBE ASSEMBLER NOTES PATIENT'S SPO2 READING 85-89% ON 15L SIMPLE MASK. CHARGE NURSE MADE AWARE AND AT BEDSIDE. ABGS OBTAINED BY RT. CONFERENCE PLANNER JACOB COSTA, MADE AWARE. AWAITING ORDERS.
--- NOTE | 2020-07-17 02:34 | NUR ---
CONTRACT ASSOCIATE NOTES RELAYED ABG RESULTS TO MANAGER TRADING JACOB COSTA. PATIENT ON NONREBREATHER MASK, SPO2 96%. WILL CONTINUE TO MONITOR.
--- NOTE | 2020-07-17 03:11 | NUR ---
VOCATIONAL AUTO BODY INSTRUCTOR NOTES PER FORENSICS TEAM DIRECTOR JACOB COSTA, ORDER STAT CXR, ORDERS RECEIVED AND CARRIED OUT; AWAITING RADIOLOGIST AND RESULTS; WILL CONTINUE TO MONITOR
--- NOTE | 2020-07-17 03:30 | NUR ---
ERECTOR OPERATOR NOTES PER SKOOG OPERATOR JACOB COSTA, HOLD SCHEDULED ALBUMIN 25G IV UNTIL CXR RESULTS.
[2020-07-17] MEDS: ALBUMIN 25% 25 GM in PREMIX 1 EA IV SCH (03:59)
[2020-07-17] MEDS ORDERED: FUROSEMIDE 40 MG/4 ML VIAL IV ONE (05:00)
--- NOTE | 2020-07-17 05:10 | NUR ---
AIRCRAFT SYSTEMS TECHNICIANMEDICAL ASSISTANT INSTRUCTOR NOTES PEGGER DOBBY LOOMS INIATED DUE TO PATIENT'S LOW SPO2; 88% ON 15l NONREBREATHER. RELAYED CXR RESULTS AND PATIENT'S STATUS TO DATA SYSTEMS ANALYST JACOB COSTA. RECEIVED ORDERS TO TRANSFER PATIENT TO ICU. PATIENT TRANSFERRED TO ROOM 258.
[2020-07-17] MEDS ORDERED: FUROSEMIDE 100 MG/10 ML VIAL ONE (05:13)
--- NOTE | 2020-07-17 05:29 | NUR ---
RN NOTES CALLED PATIENT'S SON, CARISSA, REGARDING TRANSFER. NO ANSWER, LEFT VOICEMAIL AND CALLBACK NUMBER. CARISSA HINES: [phone]
[2020-07-17] MEDS ORDERED: MAGNESIUM HYDROXIDE 30 ML UDC GT PRN (05:30)
[2020-07-17] MEDS ORDERED: MAG HYDROX/AL HYDROX/SIMETH 30 ML UDC GT PRN (05:30)
[2020-07-17] MEDS ORDERED: BISACODYL SUPP (10 MG) 10 MG/SUPP.RECT SUPP.RECT RC PRN (05:30)
--- NOTE | 2020-07-17 05:38 | NUR ---
RT PT PLACED ON BIPAP PER MD ORDERS DUE TO LOW SPO2 AND IWB. PT TOLERATING SETTING WELL. BIPAP TO RED OUTLET. ALARM SET AND AUDIBLE. AMBU BAG AT HOB. CONTINUE CURRENT CARE PLAN AND MONITOR FOR ANY CHANGES. Addendum: 07/17/20 at 0541 by FLORY RICO RT Amended: Links added.
[2020-07-17] MEDS ORDERED: hydrALAZINE HCL 50 MG TABLET GT ONE (06:00)
--- NOTE | 2020-07-17 06:00 | NUR ---
Received patient from [facility] s/p BEHAVIOR SPECIALIST not doing well desaturate to 88% on 100% NRB mask.Transferred to ICU via ACLS protocol.RT placed patient on BIPAP 15/5,Rate 18 fio2 100% tolerating well.ST 114-119 per tele monitoring.Bilateral crackles on auscultation.lasix administered as ordered.BP elevated and DR.Oleg Acosta notified with orders and carried.Both feet with pitting edema elevated on pillows.Patient lethargic non verbal responsive to painful stimuli.Right Upper chest Perma cath intact.LFA SL intact.GT clamped.FC to gravity drainage.Repositioned to comfort.No acute distress noted.Will endorse to day shift for continuity of care.
[2020-07-17] MEDS: METOCLOPRAMIDE HCL 10 MG TABLET GT SCH ×3 (06:02→20:22)
[2020-07-17 06:15] LABS: ABG BASE EXCESS 7.1 mmol/L; ABG OXYGEN SATURATION 91.9 % (92.0-98.5); ABG PH 7.496 (7.350-7.450); ABG PO2 59.3 mmHg (75.0-100.0); AaDO2 323.4 mmHg; COHb 1.8 % (0.5-1.5); O2Hb 90.2 % (94.0-97.0); SITE, ABG Right Radial; VENT MODE, BG SIMPLE MASK
--- NOTE | 2020-07-17 07:30 | NUR ---
RISK PROFESSIONAL INITIAL NOTE RECEIVED PATIENT ASLEEP, AROUSABLE TO SPEECH. NO DISTRESS NOTED. ON BIPAP 15/ RATE 26 FIO2 100%. SPO2 98%. SKIN WARM AND DRY TO TOUCH. ON TELE MONITOR SINUS TACH. NO S/S OF PAIN OR DISCOMFORT. F/C DRAINING BY GRAVITY. GT PATENT, INTACT, IN PLACE. BLE EDEMA NOTED. HOB ELEVATED. SIDE RAILS UP AND LOCKED. BED KEPT AT LOWEST POSITION. WILL CONTINUE TO MONITOR.
--- NOTE | 2020-07-17 07:45 | NUR ---
ACCOUNT TECHNICIAN NOTE RECEIVED CALL FROM MANAGER COMMUNITY DEVELOPMENT, STATED THEY WILL NOT DO US GUIDED THORACENTESIS UNTIL PATIENTS PLATELET IS >50K. INFORMED DR FELIX. CLARIFIED WITH DR FELIX REGARDING ALBUMIN. OK TO GIVE ALBUMIN. WILL CONTINUE TO MONITOR.
[2020-07-17 07:54] LABS: BASOPHILS % (AUTO) 0.4 % (0.0-2.0); EOSINOPHILS % (AUTO) 1.8 % (0.0-6.0); HEMATOCRIT 22 % (33-45); HEMOGLOBIN 7.5 g/dL (11.5-14.8); LYMPHOCYTES # (AUTO) 0.3 /CMM (0.8-4.8); LYMPHOCYTES % (AUTO) 6.1 % (20.0-44.0); MEAN CORPUSCULAR HGB CONC 34 g/dl (31.0-36.0); MEAN CORPUSCULAR VOLUME 96 fL (82-100); MONOCYTES # (AUTO) 0.2 /CMM (0.1-1.30); MONOCYTES % (AUTO) 4.1 % (2.0-12.0); NEUTROPHILS # (AUTO) 4.7 /CMM (1.8-8.9); NEUTROPHILS % (AUTO) 87.6 % (43.0-81.0); RED BLOOD CELL COUNT(AUTO) 2.33 MIL/uL (4.0-5.2); WHITE BLOOD COUNT (AUTO) 5.4 K/uL (4.3-11.0)
[2020-07-17 08:05] LABS: PLATELET COUNT (AUTO) 27 /CMM (150-450)
[2020-07-17 08:24] LABS: CALCIUM, SERUM 7.9 mg/dL (8.5-10.1); CARBON DIOXIDE 26 mmol/L (21-32); CHLORIDE 105 mmol/L (98-107); CREATININE 1.8 mg/dL (0.6-1.3); GLUCOSE 85 mg/dL (74-106); POTASSIUM 4.4 mmol/L (3.5-5.1); SODIUM SERUM 140 mmol/L (136-145); UREA NITROGEN, BLOOD 47 mg/dL (7-18)
--- NOTE | 2020-07-17 08:36 | NUR ---
RESTAURANT CASHIER NOTE SEEN AND EXAMINED BY DR QUINTANILLA. CLARIFIED ALBUMIN ORDER. WITH ORDERS TO DC ALBUMIN. NOTED AND CARRIED OUT.
[2020-07-17] MEDS: LISINOPRIL (10MG) 10 MG TABLET GT SCH (08:47)
[2020-07-17] MEDS: PANTOPRAZOLE 40 MG/PACK PACK GT SCH ×2 (08:49→20:22)
[2020-07-17] MEDS: NITROGLYCERIN PACKET 1 GM PACKET TD SCH ×2 (08:49→20:22)
[2020-07-17] MEDS: SILVER SULFADIAZINE CREAM 25 GM TUBE TP SCH (08:50)
--- NOTE | 2020-07-17 09:00 | NUR ---
JEWELRY DEPARTMENT SUPERVISOR NOTE PER DR FELIX PLACE PATIENT ON HI FLOW 60L FIO2 100% AND TITRATE NEEDED, NO NEED FOR ABG AT THIS TIME. RT AT BEDSIDE.
[2020-07-17] MEDS: JEVITY 1.2 CAL 1,000 ML BOTTLE GT PRN (09:15)
--- NOTE | 2020-07-17 10:04 | NUR ---
OFFAL TRIMMER NOTE DIALYSIS NURSE AT BEDSIDE.
--- NOTE | 2020-07-17 10:51 | NUR ---
PUBLIC RELATIONS PLAYER NOTE DIALYSIS STOPPED PATIENT DID NOT TOLERATE, PATIENT WENT INTO AFIB 150'S. DR BARRAGAN MADE AWARE WITH ORDERS AMIO BOLUS AND DRIP. NOTED. WILL CONTINUE TO MONITOR.
[2020-07-17] MEDS ORDERED: AMIODARONE 450 MG in IV D5W 250 ML IV PRN (11:00)
[2020-07-17] MEDS ORDERED: AMIODARONE 150 MG in IV D5W 100 ML IV ONE (11:00)
--- NOTE | 2020-07-17 11:06 | NUR ---
LATHE SANDER NOTE RELAYED TO DR BARRAGAN PATIENT CONVERTED TO SINUS TACH 140'S SUSTAINING AT 1056 WITH ORDERS TO DC AMIO ORDER. NOTED AND CARRIED OUT. WILL CONTINUE TO MONITOR.
--- NOTE | 2020-07-17 14:00 | NUR ---
agricultural engineering technicians note pierce catheter changed per ID order. no complications. will continue to monitor.
--- NOTE | 2020-07-17 14:01 | NUR ---
DOG DAY CARE ATTENDANT NOTE SEEN AND EXAMINED BY DR LIZ PER DR LIZ THERES NO NEED TO SEE THE PATIENT UNLESS SHE HAS BLACK STOOLS OR ACTIVE BLEEDING. WILL CONTINUE TO MONITOR.
[2020-07-17] MEDS: hydrALAZINE HCL 25 MG TABLET GT SCH (19:02)
--- NOTE | 2020-07-17 19:15 | NUR ---
BROOM MACHINE OPERATOR NOTE RECEIVED PATIENT IN BED RESTING, WATCHING TV. PATIENT IS A/O X, ABLE TO OPEN EYES. SPEECH IS DELAYED AND UNCLEAR. BREATHING IS EVEN AND UNLABORED, NO SOB NOTED AT THIS TIME. PATIENT IS ON HIGH FLOW 60 LITERS O2. O2 SAT IS 94% AT THIS TIME. IV SITE ON LFA GAUGE 20 IS CLEAN, DRY, AND PATENT. HD CATH ON RIGHT CHEST WALL. PATIENT ON GT FEEDING, JEVITY RUNNING AT 35 ML/HR, NO RESIDUAL NOTED. PATIENT ON BLAKE CATH, URINE IS CLEAR AND YELLOW IN COLOR. NOTED DISCOLORATION ON BILATERAL UPPER EXTREMITIES. GENERALIZED EDEMA NOTED. PATIENT IS IN NO APPARENT DISTRESS NOTED. BED IS LOWERED AND LOCKED FOR SAFETY. WILL CONTINUE TO MONITOR.
[2020-07-18] VITALS (50 sets, daily range): BP systolic 125–164; BP diastolic 64–104
--- NOTE | 2020-07-18 02:00 | NUR ---
LIBRARIAN SPECIALIST NOTE PATIENT IS RESTING COMFORTABLY AT THIS TIME. PATIENT TOLERATED BED BATH. ALL WOUND CARE RENDERED. NOTED 1 BM. WILL CONTINUE TO MONITOR.
[2020-07-18 04:15] LABS: BASOPHILS % (AUTO) 0.4 % (0.0-2.0); EOSINOPHILS % (AUTO) 4.1 % (0.0-6.0); LYMPHOCYTES # (AUTO) 0.4 /CMM (0.8-4.8); LYMPHOCYTES % (AUTO) 12.4 % (20.0-44.0); MEAN CORPUSCULAR HGB CONC 33 g/dl (31.0-36.0); MEAN CORPUSCULAR VOLUME 97 fL (82-100); MONOCYTES # (AUTO) 0.2 /CMM (0.1-1.30); MONOCYTES % (AUTO) 4.7 % (2.0-12.0); NEUTROPHILS # (AUTO) 2.5 /CMM (1.8-8.9); NEUTROPHILS % (AUTO) 78.4 % (43.0-81.0); WHITE BLOOD COUNT (AUTO) 3.2 K/uL (4.3-11.0)
[2020-07-18 04:33] LABS: RED BLOOD CELL COUNT(AUTO) 1.86 MIL/uL (4.0-5.2)
[2020-07-18 04:34] LABS: HEMATOCRIT 18 % (33-45); PLATELET COUNT (AUTO) 16 /CMM (150-450)
[2020-07-18 04:44] LABS: CALCIUM, SERUM 7.5 mg/dL (8.5-10.1); CARBON DIOXIDE 28 mmol/L (21-32); CHLORIDE 108 mmol/L (98-107); CREATININE 1.8 mg/dL (0.6-1.3); GLUCOSE 108 mg/dL (74-106); SODIUM SERUM 142 mmol/L (136-145); UREA NITROGEN, BLOOD 47 mg/dL (7-18)
[2020-07-18 05:20] LABS: LYMPHOCYTES % (MANUAL) 11 % (16-48); MONOCYTES % (MANUAL) 4 % (0-11.0); NEUTROPHILS % (MANUAL) 85 (42-76)
--- NOTE | 2020-07-18 06:48 | NUR ---
CEMENTING BULK MATERIAL OPERATOR NOTE RECEIVED ORDER FROM DR. JAMES FOR 1 UNIT PRBC FOR HGB OF 6.0. MD ALSO AWARE FOR CRITICAL LAB VALUES, HCT 18 [address] PETERSEN PARAMETER NOTES: HGB < 7 TRANSFUSE 1 UNIT PRBC PLATELET < 10 TRANSFUSE 1 UNIT PLATELETS ORDERS NOTED AND CARRIED OUT. PATIENT IS CURRENTLY HAVING HEMODIALYSIS. DIALYSIS NURSE AT BEDSIDE AT THIS TIME. WILL ENDORSE TO AM SHIFT RN FOR CONTINUATION OF CARE.
--- NOTE | 2020-07-18 07:30 | NUR ---
PROJECTION CAMERA OPERATOR INITIAL NOTE RECEIVED PATIENT WITH ONGOING DIALYSIS TREATMENT. PATIENT SLEEPING, AROUSABLE. NO S/S OF PAIN OR DISCOMFORT. NO DISTRESS NOTED. PATIENT ON HI FLOW 60 Addendum: 07/18/20 at 0814 by THIAGO MCCALL RN RECEIVED PATIENT ON HI FLOW 50L 70%. PATIENT WITH EPISODE OF DESATURATION 89-90%, RT INFORMED AND SETTINGS CHANGED TO 60L 100%. PATIENT ON TELE MONITOR SR WITH BBB. FC PATENT AND DRAINING BY GRAVITY. GT PATENT, INTACT, IN PLACE. HOB ELEVATED. SIDE RAILS UP AND LOCKED. BED KEPT AT LOWEST POSITION. WILL CONTINUE TO MONITOR.
--- NOTE | 2020-07-18 08:14 | NUR ---
MORGUE KEEPER NOTE PATIENT COMPLETED DIALYSIS WITH 1LITER TAKEN OUT. WILL CONTINUE TO MONITOR.
[2020-07-18] MEDS: METOCLOPRAMIDE HCL 10 MG TABLET GT SCH ×2 (09:46→20:31)
[2020-07-18] MEDS: PANTOPRAZOLE 40 MG/PACK PACK GT SCH ×2 (09:47→20:31)
[2020-07-18] MEDS: SILVER SULFADIAZINE CREAM 25 GM TUBE TP SCH (09:47)
[2020-07-18] MEDS: LISINOPRIL (10MG) 10 MG TABLET GT SCH (09:47)
[2020-07-18] MEDS: NITROGLYCERIN PACKET 1 GM PACKET TD SCH ×2 (09:47→20:32)
--- NOTE | 2020-07-18 10:00 | NUR ---
SHIP UNLOADER NOTE NO BLOOD TRANSFUSION REACTION NOTED AFTER THE FIRST 15 MINS OF TRANSFUSION
--- NOTE | 2020-07-18 12:12 | NUR ---
CANDY CATCHER NOTE PATIENT WENT INTO AFIB RVR 140-150'S. STOPPED BLOOD AND INFORMED METAL SASH SETTER NACHO WITH ORDERS TO STOP BLOOD. WILL CONTINUE TO MONITOR.
[2020-07-18 14:23] LABS: APPEARANCE,URINE CLEAR (CLEAR); BILIRUBIN,URINE SMALL (NEGATIVE); BLOOD, URINE LARGE Ery/uL (NEGATIVE); COLOR,URINE YELLOW (YELLOW); KETONES,URINE NEGATIVE (NEGATIVE); LEUKOCYTE ESTERASE ,URINE TRACE (NEGATIVE); NITRITE, URINE NEGATIVE (NEGATIVE); PROTEIN,URINE 100 mg/dl (NEGATIVE); UGLUCOSE NEGATIVE (NEGATIVE); UROBILINOGEN,URINE 0.2 EU/dL (0.2)
[2020-07-18 15:04] LABS: BACTERIA,URINE 1+ /HPF (None Seen); SQUAMOUS EPITHELIAL CELL,UR 0-2 /HPF (None Seen); YEAST,URINE Few /HPF (None Seen)
--- NOTE | 2020-07-18 17:24 | NUR ---
ICU NOTE: 1201: ABG WAS WHILE PATIENT 15LPM O2 NON-REBREATHER. RELAYED TO DR FELIX. OK TO KEEP PATIENT ON NON-REBREATHER FOR NOW. PATIENT SPO2 92-93%. PATIENT DENIES SOB. SKIN WARM AND DRY TO TOUCH. 1212: PATIENT HAD EPISODE OF AFIB 140'S-160'S DURING BLOOD TRANSFUSION. INFORMED DR BARRAGAN REGARDING CHANGE, WITH NNO AT THIS TIME. WILL CONTINUE TO MONITOR.
[2020-07-18] MEDS: JEVITY 1.2 CAL 1,000 ML BOTTLE GT PRN (17:34)
--- NOTE | 2020-07-18 19:30 | NUR ---
RN NOTES RECEIVED PATIENT IN BED, RESPONSIVE TO VERBAL AND TACTILE STIMULI. PATIENT CONTINUES ON O2 VIA NON REBREATHER 15L/MIN SATING WELL. NO S/S OF DISTRESS NOTED. TELE MONITOR READING ST. JEVITY 1.2 RUNNING AT 35ML/H TOLERATING WELL NO RESIDUAL NOTED, PLACEMENT CHECKED VIA AUSCULTATION. F/C INTACT CLEAR URINE RUNNING TO GRAVITY. SAFETY MEASURES IN PLACE, SIDE RAILS UP, BED IN LOW AND LOCKED POSITION, CALL LIGHT WITHIN REACH. WILL CONT TO MONITOR FOR CHANEL.
[2020-07-19] VITALS (59 sets, daily range): BP systolic 78–167; BP diastolic 45–109
--- NOTE | 2020-07-19 02:00 | NUR ---
MOUTH CARE PROVIDED, REPOSITION FOR SAFETY.
[2020-07-19 04:25] LABS: BASOPHILS % (AUTO) 0.7 % (0.0-2.0); EOSINOPHILS % (AUTO) 5.1 % (0.0-6.0); LYMPHOCYTES # (AUTO) 0.4 /CMM (0.8-4.8); LYMPHOCYTES % (AUTO) 15.3 % (20.0-44.0); MEAN CORPUSCULAR HGB CONC 34 g/dl (31.0-36.0); MEAN CORPUSCULAR VOLUME 96 fL (82-100); MONOCYTES # (AUTO) 0.2 /CMM (0.1-1.30); MONOCYTES % (AUTO) 5.5 % (2.0-12.0); NEUTROPHILS # (AUTO) 2.1 /CMM (1.8-8.9); NEUTROPHILS % (AUTO) 73.4 % (43.0-81.0); RED BLOOD CELL COUNT(AUTO) 2.06 MIL/uL (4.0-5.2); WHITE BLOOD COUNT (AUTO) 2.8 K/uL (4.3-11.0)
[2020-07-19 04:37] LABS: ALANINE AMINOTRANSFERASE 59 U/L (12-78); ALBUMIN 1.9 g/dL (3.4-5.0); ALKALINE PHOSPHATASE 170 U/L (46-116); ASPARTATE AMINOTRANSFERASE 58 U/L (15-37); BILIRUBIN,DIRECT 0.3 mg/dL (0.0-0.2); BILIRUBIN,TOTAL 1.3 mg/dL (0.2-1.0); CALCIUM, SERUM 7.5 mg/dL (8.5-10.1); CARBON DIOXIDE 31 mmol/L (21-32); CHLORIDE 108 mmol/L (98-107); CREATININE 1.5 mg/dL (0.6-1.3); GLUCOSE 144 mg/dL (74-106); MAGNESIUM 1.6 mg/dL (1.8-2.4); PHOSPHORUS 2.6 mg/dL (2.5-4.9); SODIUM SERUM 144 mmol/L (136-145); TOTAL PROTEIN, SERUM 4.3 g/dL (6.4-8.2)
[2020-07-19 04:44] LABS: UREA NITROGEN, BLOOD 39 mg/dL (7-18)
[2020-07-19 04:48] LABS: HEMATOCRIT 20 % (33-45); HEMOGLOBIN 6.8 g/dL (11.5-14.8); PLATELET COUNT (AUTO) 13 /CMM (150-450)
--- NOTE | 2020-07-19 05:00 | NUR ---
RECEIVED CALL FROM LAB, SPOKE WITH VIRGIL REGARDING CRITICAL LAB RESULTS, HGB 6.8 PLT 13 CRITICAL LABS RELAYED TO DR PETERSEN PER DR PETERSEN. GIVE 2 UNIT OF PRBC AND 1 UNIT OF PLT. WILL CARRY OUT ORDERED AND ENDORSE TO AM NURSE TO FOLLOW UP.
[2020-07-19 05:55] LABS: EOSINOPHILS % (MANUAL) 6 % (0-4); LYMPHOCYTES % (MANUAL) 17 % (16-48); MONOCYTES % (MANUAL) 6 % (0-11.0); NEUTROPHILS % (MANUAL) 71 (42-76)
--- NOTE | 2020-07-19 07:00 | NUR ---
DIALYSIS NURSE AT BEDSIDE.
--- NOTE | 2020-07-19 07:30 | NUR ---
ICU/RN PT IS ON NRM AT 15L,SAT O2-97%.V/S STABLE,AFEBRILE.NO PAIN REPORTED AT THIS TIME,PT IS HAVING HD.HD NURSE AT BEDSIDE.OPEN EYES ,HAS DEMENTIA.CONTRACTED.REACTIVE ON PAIN STIMULATION.NON-VERBAL.LEFT UPPER ARM MIDLINE.F/C DRAINING WITH MINIMAL AMOUNT OF URINE.GENERALIZED EDEMA PRESENT.WOUND ON THE LOWER BACK AND JOHN AREA NOTED COVERED WITH DRESSING.REPOSITION FOR COMFORT.
--- NOTE | 2020-07-19 07:32 | NUR ---
RN NOTES PATIENT RESTING WELL NO S/S OF DISTRESS NOTED. BREATHING EVENLY, CONTINUES ON 15L NON REBREATHER SATURATING WELL. IV'S INTACT FLUSHES WELL. JEVITY 1.2 RUNNING AT 35ML/H TOLERATING WELL NO RESIDUAL NOTED, PLACEMENT CHECKED VIA AUSCULTATION. SKIN WARM AND DRY TO TOUCH. F/C INTACT CLEAR URINE RUNNING TO GRAVITY. SAFETY MEASURES IN PLACE, SIDE RAILS UP, BED IN LOW AND LOCKED POSITION, CALL LIGHT WITHIN REACH. ENDORSE TO AM NURSE FOR BLOOD AND PLATELET TRANSFUSION.
--- NOTE | 2020-07-19 08:10 | NUR ---
ICU/RN PT IS WENT TO A-FIB DURING HD,HR-140 BPM.BP DECREASED.MD NOTIFIED. NEW ORDERS RECEIVED.LABS REVIEW.NEED BLOOD TRANSFUSION WITH HD .BLOOD IS NOT READY AT THIS TIME.PT HAD BLOOD TRANSFUSION REACTION ON 07/18/20.
[2020-07-19] MEDS: LISINOPRIL (10MG) 10 MG TABLET GT SCH (08:34)
[2020-07-19] MEDS: METOCLOPRAMIDE HCL 10 MG TABLET GT SCH ×2 (08:34→21:05)
[2020-07-19] MEDS: NITROGLYCERIN PACKET 1 GM PACKET TD SCH (08:34)
[2020-07-19] MEDS: PANTOPRAZOLE 40 MG/PACK PACK GT SCH ×2 (08:34→21:05)
[2020-07-19] MEDS: SILVER SULFADIAZINE CREAM 25 GM TUBE TP SCH (08:35)
--- NOTE | 2020-07-19 10:00 | NUR ---
ICU/RN HD IS OVER. 1.8L OUTPUT. PT CONVERTED BACK TO SINUS RHYTHM. V/S STABLE,AFEBRILE. DUE MEDS ARE GIVEN ORDERED.
[2020-07-19] MEDS ORDERED: Magnesium 1GM/D5W 100ML PREMIX 100 ML IV SCH ×2 (10:30)
[2020-07-19] MEDS: DIGOXIN INJ 0.5 MG/2 ML AMPUL IV SCH ×2 (12:30→18:01)
[2020-07-19] MEDS: diphenhydrAMINE HCL 50 MG/ML VIAL IV PRN ×2 (15:10→21:05)
--- NOTE | 2020-07-19 15:10 | NUR ---
ICU/RN 1 UNIT OF PLT GIVEN ORDERED. NO S/S OF REACTION NOTED. BENADRYL IV GIVEN ORDERED BEFORE FIRST UNIT OF BLOOD.
[2020-07-19] MEDS: hydrALAZINE HCL 25 MG TABLET GT SCH (15:48)
[2020-07-19] MEDS: PROSOURCE / PROSTAT (PYXIS) 30 ML UDC GT SCH (15:53)
[2020-07-19] MEDS: JEVITY 1.2 CAL 1,000 ML BOTTLE GT PRN (15:53)
--- NOTE | 2020-07-19 17:40 | NUR ---
ICU/RN PM CARE PROVIDED. WOUND DRESSING DONE .REPOSITION FOR COMFORT.
--- NOTE | 2020-07-19 18:45 | NUR ---
ICU/RN PT HAS BLOOD TRANSFUSION REACTION T-101.3.MD NOTIFIED.BLOOD TRANSFUSION STOP.SEND TO LAB.
--- NOTE | 2020-07-19 20:30 | NUR ---
SCALP SPECIALIST: CALLED AND SPOLE W DR. DUONG (PICKED EDGE SEWING MACHINE OPERATOR OF LAB/PATHOLOGIST AT [phone] AND UPDATED HIM OF PT STATUS S/P BLOOD TRANSFUSION REACTION. TEMP. 100.8, ST IN THE 120s, SBP IN THE 150s, ON 15 NON-REBREATHER MASK. RECOMMENDED ANOTHER H&H AND U/A. OBTAINED ORDER FR. SERRA WILL CONTINUE TO MONITOR.
[2020-07-19 21:14] LABS: APPEARANCE,URINE SL CLOUDY (CLEAR); BILIRUBIN,URINE SMALL (NEGATIVE); BLOOD, URINE LARGE Ery/uL (NEGATIVE); KETONES,URINE NEGATIVE (NEGATIVE); LEUKOCYTE ESTERASE ,URINE MODERATE (NEGATIVE); NITRITE, URINE NEGATIVE (NEGATIVE); PROTEIN,URINE 100 mg/dl (NEGATIVE); UGLUCOSE NEGATIVE (NEGATIVE); UROBILINOGEN,URINE 0.2 EU/dL (0.2)
[2020-07-19 21:16] LABS: HEMOGLOBIN 7.8 g/dL (11.5-14.8)
[2020-07-19 21:21] LABS: COLOR,URINE AMBER (YELLOW)
[2020-07-19 21:26] LABS: BACTERIA,URINE 1+ /HPF (None Seen); RBC,URINE 21-50 /HPF (0-2); SQUAMOUS EPITHELIAL CELL,UR Few /HPF (None Seen); WBC,URINE 51-80 /HPF (0-3); YEAST,URINE Few /HPF (None Seen)
--- NOTE | 2020-07-19 23:14 | NUR ---
SINGLE PASS SOIL STABILIZER OPERATOR: CALLED AND NOTIFIED DR. JAMES THAT PT HAS FEVER DURING THE SHIFT AND EARLY ON SHIFT AND ASK FOR ANTI PYRETIC MED. WT ORDER TO GIVE ACETAMINOPHEN EVEN IF PT's PROFILE OR MED. RECORD SAYS PT IS ALLERGIC TO IT. NOTED AND CARRIED OUT. WILL ADMIN NEEDED.
[2020-07-19] MEDS ORDERED: ACETAMINOPHEN 650 MG/20.3 ML UDC GT PRN (23:30)
[2020-07-20] VITALS (43 sets, daily range): BP systolic 100–179; BP diastolic 47–110
[2020-07-20] MEDS: DIGOXIN INJ 0.5 MG/2 ML AMPUL IV SCH (00:36)
[2020-07-20 04:32] LABS: BASOPHILS % (AUTO) 0.5 % (0.0-2.0); EOSINOPHILS % (AUTO) 4.4 % (0.0-6.0); HEMATOCRIT 23 % (33-45); HEMOGLOBIN 7.6 g/dL (11.5-14.8); LYMPHOCYTES # (AUTO) 0.8 /CMM (0.8-4.8); MEAN CORPUSCULAR HGB CONC 34 g/dl (31.0-36.0); MEAN CORPUSCULAR VOLUME 95 fL (82-100); MONOCYTES # (AUTO) 0.3 /CMM (0.1-1.30); MONOCYTES % (AUTO) 7.3 % (2.0-12.0); NEUTROPHILS # (AUTO) 2.9 /CMM (1.8-8.9); NEUTROPHILS % (AUTO) 68.8 % (43.0-81.0); RED BLOOD CELL COUNT(AUTO) 2.37 MIL/uL (4.0-5.2); WHITE BLOOD COUNT (AUTO) 4.3 K/uL (4.3-11.0)
[2020-07-20 04:38] LABS: CALCIUM, SERUM 7.4 mg/dL (8.5-10.1); CARBON DIOXIDE 31 mmol/L (21-32); CHLORIDE 108 mmol/L (98-107); CREATININE 1.2 mg/dL (0.6-1.3); GLUCOSE 90 mg/dL (74-106); MAGNESIUM 1.9 mg/dL (1.8-2.4); PHOSPHORUS 2.3 mg/dL (2.5-4.9); POTASSIUM 4.2 mmol/L (3.5-5.1); SODIUM SERUM 145 mmol/L (136-145); UREA NITROGEN, BLOOD 31 mg/dL (7-18)
[2020-07-20 05:24] LABS: PLATELET COUNT (AUTO) 15 /CMM (150-450)
--- NOTE | 2020-07-20 06:05 | NUR ---
MIXING TECHNICIAN: RELAYED PLATELET=[address] JAMES, NO ACTIVE BLEEDING. HD NURSE AT BEDSIDE. MD OLVERA ORDER FOR 1 UNIT PLATELET TRANSFUSION. NOTED AND CARRIED OUT. BLOOD BANK MADE AWARE. STILL ON 15L [address] AND A. FIB IN AND OUT ON ENAMEL APPLIER. AFEBRILE AT THIS TIME. ALL NEEDS MET. WILL CONTINUE TO MONITOR.
[2020-07-20 06:29] LABS: EOSINOPHILS % (MANUAL) 6 % (0-4); LYMPHOCYTES % (MANUAL) 20 % (16-48); MONOCYTES % (MANUAL) 9 % (0-11.0); NEUTROPHILS % (MANUAL) 65 (42-76)
--- NOTE | 2020-07-20 06:48 | NUR ---
COSMETIC MAKER: JERALD FROM BLOOD BANK CALLED AND SAID PLATELET WILL STILL BE ORDERED FROM [facility] AND WILL CALL ONCE IT'S READY. HD NURSE LILLY MADE AWARE AT BEDSIDE. ONGOING HD AT THIS TIME WT NO ADVERSE REACTION. WILL CONTINUE TO MONITOR.
--- NOTE | 2020-07-20 07:40 | NUR ---
ICU/RN PT IS ON NRM AT 15 L,SAT O2-96%..V/S STABLE,AFEBRILE.NO PAIN REPORTED AT THIS TIME.PT IS HAVING HD AT THIS TIME. HD NURSE AT BEDSIDE.RIGHT CHEST HD CATH.GENERALIZED EDEMA PRESENT.
[2020-07-20] MEDS ORDERED: NEUTRA PHOS 1 POWD.PACKET PO ONE (08:00)
[2020-07-20 08:19] LABS: IMMUNOGLOBULIN A, SERUM 109 mg/dL (64-422); IMMUNOGLOBULIN G, SERUM 590 mg/dL (586-1602); IMMUNOGLOBULIN M, SERUM 191 mg/dL (26-217)
[2020-07-20] MEDS: PANTOPRAZOLE 40 MG/PACK PACK GT SCH ×2 (08:34→21:13)
[2020-07-20] MEDS: SILVER SULFADIAZINE CREAM 25 GM TUBE TP SCH (08:35)
[2020-07-20] MEDS: PROSOURCE / PROSTAT (PYXIS) 30 ML UDC GT SCH ×3 (08:37→16:09)
--- NOTE | 2020-07-20 10:30 | NUR ---
ICU/RN DUE MEDS ARE GIVEN ORDERED.HD IS OVER .PT TOLERATED PROCEDURE OK. PT IS NPO.
[2020-07-20] MEDS: METOCLOPRAMIDE HCL 10 MG TABLET GT SCH ×2 (10:45→21:13)
[2020-07-20] MEDS: JEVITY 1.2 CAL 1,000 ML BOTTLE GT PRN (12:19)
--- NOTE | 2020-07-20 13:00 | NUR ---
ICU/RN DR LIZ SEEN THE PT .OK TO START G-TUBE FEEDING .PT IS NOT A CANDIDATE FOR EGD AT THIS TIME.PLT LOW ,H/H IS LOW. OK TO TRANSFUSED 1 UNIT OF PLT.
[2020-07-20] MEDS: diphenhydrAMINE HCL 50 MG/ML VIAL IV PRN (13:12)
[2020-07-20] MEDS: hydrALAZINE HCL 25 MG TABLET GT SCH ×2 (13:14→21:14)
--- NOTE | 2020-07-20 15:00 | NUR ---
ICU/RN 1 UNIT PLT GIVEN ORDERED.NO S/S OF REACTION NOTED.V/S STABLE ,AFEBRILE.CONTINUE MONITORING.
--- NOTE | 2020-07-20 18:06 | NUR ---
icu/rn pm provided.wound care done.due meds are given as ordered.continue monitoring
--- NOTE | 2020-07-20 20:00 | NUR ---
Received patient non verbal non interactive responsive to tactile stimuli.Respiration even and unlabored. With O2 15L on NRM.Well tolerated SPO2 96%ST 113 per tele monitoring.BP elevated will medicate as ordered.GT feeding in progress and tolerating well.No residual noted.Maintain with HOB elevated. FC to gravity.R upper chest Perma cath and PROMISE ML both sites intact.Turned and repositioned.No distress noted.
[2020-07-21] VITALS (31 sets, daily range): BP systolic 122–178; BP diastolic 60–100
--- NOTE | 2020-07-21 | NUR ---
Patient resting VSS.Remains ST 111.Afebrile.Turned and repositioned.Tolerating GT feeding well.
--- NOTE | 2020-07-21 02:00 | NUR ---
BM X1.Hygienic measures done.Wound dressing done per protocol.Turned and repositioned.
[2020-07-21 04:37] LABS: BASOPHILS % (AUTO) 0.6 % (0.0-2.0); EOSINOPHILS % (AUTO) 3.5 % (0.0-6.0); HEMATOCRIT 21 % (33-45); LYMPHOCYTES # (AUTO) 1.1 /CMM (0.8-4.8); LYMPHOCYTES % (AUTO) 20.7 % (20.0-44.0); MEAN CORPUSCULAR HGB CONC 34 g/dl (31.0-36.0); MEAN CORPUSCULAR VOLUME 95 fL (82-100); MONOCYTES # (AUTO) 0.4 /CMM (0.1-1.30); MONOCYTES % (AUTO) 7.7 % (2.0-12.0); NEUTROPHILS # (AUTO) 3.8 /CMM (1.8-8.9); NEUTROPHILS % (AUTO) 67.5 % (43.0-81.0); RED BLOOD CELL COUNT(AUTO) 2.15 MIL/uL (4.0-5.2); WHITE BLOOD COUNT (AUTO) 5.6 K/uL (4.3-11.0)
[2020-07-21 04:42] LABS: HEMOGLOBIN 6.9 g/dL (11.5-14.8); PLATELET COUNT (AUTO) 14 /CMM (150-450)
--- NOTE | 2020-07-21 04:50 | NUR ---
Lab called am labs resulted H/H 6.06/17,Platelet 14.Dr.Oleg Bridges notified.Orders made and carried out.
[2020-07-21 04:53] LABS: CALCIUM, SERUM 7.7 mg/dL (8.5-10.1); CARBON DIOXIDE 32 mmol/L (21-32); CHLORIDE 111 mmol/L (98-107); CREATININE 1.3 mg/dL (0.6-1.3); GLUCOSE 100 mg/dL (74-106); MAGNESIUM 1.7 mg/dL (1.8-2.4); PHOSPHORUS 2.9 mg/dL (2.5-4.9); POTASSIUM 4.2 mmol/L (3.5-5.1); SODIUM SERUM 147 mmol/L (136-145); UREA NITROGEN, BLOOD 38 mg/dL (7-18)
[2020-07-21 05:22] LABS: BAND % (MANUAL) 5 % (0.0-5.0); LYMPHOCYTES % (MANUAL) 18 % (16-48); NEUTROPHILS % (MANUAL) 65 (42-76)
[2020-07-21 05:23] LABS: EOSINOPHILS % (MANUAL) 4 % (0-4); MONOCYTES % (MANUAL) 8 % (0-11.0)
--- NOTE | 2020-07-21 05:58 | NUR ---
Followed up platelet order spoke to JENNIFER.She said she will order it from [facility].
--- NOTE | 2020-07-21 06:00 | NUR ---
Please note: Unable to get patient weight with the bed it says wt.-19. Ying lift broken unable to zero.Change patient bed to same morris bed with pump and zeroed.
--- NOTE | 2020-07-21 07:15 | NUR ---
Patient resting no significant changes noted during the shift.Patient needs 1 unit PRBC and 1 unit Platelet to be transfuse with HD and to premedicate patient with Benadryl before transfusion. Report given to day shift RN for continuity of care.
--- NOTE | 2020-07-21 07:56 | NUR ---
RN OPENING NOTE PATIENT RECEIVED IN BED, NO S/S OF DISTRESS AT THIS TIME, PATIENT ALERT ORIENTED X0, NONVERBAL, ON STRICT BED REST, ON 15 L O2 VIA NON REBREATHER MASK, TELEMONITOR SHOWING S/S OF SINUS RHYTHM/SINUS TACH, G TUBE PATENT AND INTACT, INFUSING JEVITY 35CC/HR, TOLERATING WELL, NO RESIDUALS, BLAKE CATHETER PATENT AND INTACT, DRAINING URINE BY GRAVITY, MULTIPLE WOUNDS PRESENT THROUGHOUT, WILL ADDRESS ACCORDING TO WOUND PLAN, IV COLT ARM MIDLINE AND IV LFA, PATENT AND INTACT, LUNGS CLEAR UPON AUSCULTATION, BOWEL SOUNDS PRESENT, NO EDEMA ON LEGS/FEET, NO REDNESS NOTED ON HEELS, OPENS EYES BUT DOES NOT FOLLOW, SAFETY MEASURES IMPLEMENTED, CALL LIGHT WITHIN REACH, BED IN LOWEST AND LOCKED POSITION, SIDE RAILS UP X2, WILL CONTINUE TO MONITOR FOR ANY CHANGES.
[2020-07-21] MEDS: PROSOURCE / PROSTAT (PYXIS) 30 ML UDC GT SCH ×3 (08:56→17:00)
[2020-07-21] MEDS: SILVER SULFADIAZINE CREAM 25 GM TUBE TP SCH (08:56)
[2020-07-21] MEDS: METOCLOPRAMIDE HCL 10 MG TABLET GT SCH ×2 (08:57→20:56)
[2020-07-21] MEDS: PANTOPRAZOLE 40 MG/PACK PACK GT SCH ×2 (08:57→20:56)
[2020-07-21] MEDS: Magnesium 1GM/D5W 100ML PREMIX 100 ML IV SCH ×2 (10:14→11:49)
[2020-07-21] MEDS: diphenhydrAMINE HCL 50 MG/ML VIAL IV PRN (11:32)
--- NOTE | 2020-07-21 11:55 | NUR ---
RN NOTE PLATELET INFUSION STARTED AT 1135. TRANSFUSION DOCUMENTATION STARTED AT 1150 A RESULT OF TECHNICAL DIFFICULTIES. DOCUMENTED INITIAL VITAL SIGNS ACCORDINGLY.
--- NOTE | 2020-07-21 13:48 | NUR ---
SHIRLEY NOTES PT HR ELEVATED POST HD AND PLATELET INFUSION, INCREASED FORM 90S TO 130-140s IN AND OUT OF A FIB, MD BARRAGAN WAS NOTIFIED, WAITING FOR PAGE BACK Addendum: 07/21/20 at 1612 by JANAY ESTRADA RN NO NEW ORDERS AT THIS TIME
--- NOTE | 2020-07-21 16:11 | NUR ---
RN NOTES SPOKE WITH LAB REGARDING PRBC TRANSFUSION, PATHOLOGIST HAS YET TO REVIEW PT CHART, LAB WILL NOT DISPENSE BLOOD UNTIL THEN, MDs AWARE, WILL CONTINUE TO MONITOR Addendum: 07/21/20 at 1630 by JANAY ESTRADA RN SPOKE WITH CLASSROOM TEACHER, ENDORSED TO ME THAT PATHOLOGIST SAYS PRBC INFUSION IS NOT INDICATED AT THIS TIME GIVEN PREVIOUS TRANSFUSION REACTIONS, NACHO CARRANZA NP MADE AWARE, WILL CONTINUE TO MONITOR FOR ANY CHANGES.
--- NOTE | 2020-07-21 16:58 | NUR ---
RN NOTES PT IS ALLERGIC TO TYLENOL BUT HAS prn ORDER ON NOV, SPOKE WITH HSOPITALIST AND RECEIVED ORDER TO DC, WILL CONTINUE TO MONITOR FOR ANY CHANGES.
--- NOTE | 2020-07-21 19:00 | NUR ---
RN CLOSING NOTE PATIENT IS RESTING COMFORTABLY IN BED, S/S OF DISTRESS, PATIENT NEEDS HAVE BEEN MET, NO ACUTE CHANGES OCCURRED OVER SHIFT, VSS, PATIENT ON MECHANICAL VENT AND TRACH, SAFETY MEASURES IMPLEMENTED, CALL LIGHT WITHIN REACH, BED IN LOWEST AND LOCKED POSITION, SIDE RAILS UP X2, WILL ENDORSE TO DATA SYSTEMS ANALYST RN FOR CHANEL.
--- NOTE | 2020-07-21 19:40 | NUR ---
RN NOTES RECEIVED PATIENT AWAKE EYES OPEN , MUMBLES SPEAK LITTLE. ST ON TELE MONITOR. NO ACUTE RESPIRATORY DISTRESS. PATIENT ON O2 10LPM VIA SIMPLE MASK SATURATION ON 90%. PATIENT IS NOT FOLLOWING COMMAND. NO FACIAL COMPLAINED OF PAIN. IV SITE ON PROMISE ML AND LFA G 20 INTACT AND PATENT. GTF JEVITY @ 35 ML/HR PATENCY CHECKED. KEPT PT CLEAN AND DRY. A PER DAY SHIFT PATIENT BLD. TRANSFUSION HELD FOR PATHOLOGY TO REVIEW THE PATIENT PREVIOUS REACTION. HGB 6.9 THIS MORNING. NO ACTIVE BLEEDING NOTED. PER MD TO CLOSELY MONITOR FOR ANY SIGNIFICANT CHANGES. KEPT PT CLEAN AND DRY. WILL CONTINUE TO MONITOR.
[2020-07-21] MEDS: JEVITY 1.2 CAL 1,000 ML BOTTLE GT PRN (21:16)
[2020-07-22] VITALS (26 sets, daily range): BP systolic 130–170; BP diastolic 69–102
[2020-07-22] MEDS: diphenhydrAMINE HCL 50 MG/ML VIAL IV PRN (01:45)
[2020-07-22 04:37] LABS: BASOPHILS % (AUTO) 0.3 % (0.0-2.0); EOSINOPHILS % (AUTO) 3.4 % (0.0-6.0); LYMPHOCYTES # (AUTO) 1.7 /CMM (0.8-4.8); LYMPHOCYTES % (AUTO) 25.1 % (20.0-44.0); MEAN CORPUSCULAR HGB CONC 34 g/dl (31.0-36.0); MEAN CORPUSCULAR VOLUME 97 fL (82-100); MONOCYTES # (AUTO) 0.5 /CMM (0.1-1.30); MONOCYTES % (AUTO) 7.1 % (2.0-12.0); NEUTROPHILS # (AUTO) 4.3 /CMM (1.8-8.9); NEUTROPHILS % (AUTO) 64.1 % (43.0-81.0); RED BLOOD CELL COUNT(AUTO) 2.08 MIL/uL (4.0-5.2); WHITE BLOOD COUNT (AUTO) 6.8 K/uL (4.3-11.0)
[2020-07-22 04:54] LABS: CALCIUM, SERUM 7.5 mg/dL (8.5-10.1); CARBON DIOXIDE 30 mmol/L (21-32); CHLORIDE 109 mmol/L (98-107); CREATININE 1.4 mg/dL (0.6-1.3); GLUCOSE 135 mg/dL (74-106); MAGNESIUM 2.3 mg/dL (1.8-2.4); PHOSPHORUS 2.3 mg/dL (2.5-4.9); POTASSIUM 4.2 mmol/L (3.5-5.1); SODIUM SERUM 145 mmol/L (136-145); UREA NITROGEN, BLOOD 42 mg/dL (7-18)
[2020-07-22 05:15] LABS: HEMATOCRIT 20 % (33-45); HEMOGLOBIN 6.8 g/dL (11.5-14.8); PLATELET COUNT (AUTO) 17 /CMM (150-450)
[2020-07-22 06:15] LABS: EOSINOPHILS % (MANUAL) 4 % (0-4); LYMPHOCYTES % (MANUAL) 26 % (16-48); MONOCYTES % (MANUAL) 8 % (0-11.0); NEUTROPHILS % (MANUAL) 62 (42-76)
--- NOTE | 2020-07-22 06:20 | NUR ---
RN NOTES DR. JAMES CALLED BACK, REPORTED CRITICAL VALUES HGB 6.8 AND PLATELETS 17 PER MD WILL LET THE AM SHIFT HANDLE IT. PATIENT REMAINED CONFUSED, O2 8LPM VIA SIMPLE MASK TOLERATED WELL SATURATION BETWEEN 92-95%. ST AND IN AND OUT A-FIB PRESENT FROM TELE MONITOR. GTF TOLERATED WELL NO RESIDUAL. HOB KEPT ELEVATED. IV SITE ON PROMISE AND LFA HL INTACT AND PATENT. BILATERAL WRIST RESTRAINT PROVIDED DUE TO PATIENT SCRATCHING AND ACCIDENTALLY PULLING OUT DEVICES. KEPT PT CLEAN AND DRY. SKIN CARE PROVIDED. TURNED AND REPOSITIONED Q2H AND PRN. SKIN CHECKED AND DOCUMENTED.
--- NOTE | 2020-07-22 08:00 | NUR ---
HARDWOOD FLOORING SPECIALIST NOTES RECEIVED PATIENT IN THE BED, NO S/S OF DISTRESS AT THIS TIME, PATIENT ALERT, EYES OPEN, BUT UNABLE TO FOLLOW DIRECTION, CONFUSED AT THIS TIME, NONVERBAL, ON STRICT BED REST, ON 8 L O2 VIA MASK, TELEMONITOR SHOWING S/S OF SINUS RHYTHM/SINUS TACH, G TUBE PATENT AND INTACT, INFUSING JEVITY 35CC/HR, TOLERATING WELL, NO RESIDUALS, BLAKE CATHETER PATENT AND INTACT, DRAINING URINE BY GRAVITY, MULTIPLE WOUNDS PRESENT THROUGHOUT, WILL ADDRESS ACCORDING TO WOUND PLAN, IV ACCESS ON LEFT UPPER ARM MIDLINE, PATENT AND INTACT, LUNGS CLEAR UPON AUSCULTATION, BOWEL SOUNDS PRESENT, NO EDEMA ON LEGS/FEET, NO REDNESS NOTED ON HEELS, SAFETY MEASURES IMPLEMENTED, CALL LIGHT WITHIN REACH, BED IN LOWEST AND LOCKED POSITION, SIDE RAILS UP X2, WILL CONTINUE TO MONITOR FOR ANY CHANGES.
--- NOTE | 2020-07-22 08:14 | NUR ---
rn notes patient having hemodialysis at this time.
[2020-07-22 08:20] LABS: ABG BASE EXCESS 5.7 mmol/L; ABG OXYGEN SATURATION 98.7 % (92.0-98.5); ABG PCO2 48.7 mmHg (35.0-45.0); ABG PH 7.419 (7.350-7.450); ABG PO2 199.2 mmHg (75.0-100.0); AaDO2 320.1 mmHg; COHb 1.9 % (0.5-1.5); MetHb 0.7 % (0.0-1.5); O2Hb 96.1 % (94.0-97.0); SITE, ABG Right Radial; VENT MODE, BG NRB
--- NOTE | 2020-07-22 10:02 | NUR ---
rn notes finished hemodialysis at this time, output was 1000 ml, v/s taken bp 130/75, p-99.
[2020-07-22] MEDS: METOCLOPRAMIDE HCL 10 MG TABLET GT SCH ×2 (10:15→21:23)
[2020-07-22] MEDS: PANTOPRAZOLE 40 MG/PACK PACK GT SCH ×2 (10:15→21:23)
[2020-07-22] MEDS: PROSOURCE / PROSTAT (PYXIS) 30 ML UDC GT SCH ×3 (10:15→16:25)
[2020-07-22] MEDS: SILVER SULFADIAZINE CREAM 25 GM TUBE TP SCH (10:16)
[2020-07-22] MEDS: NITROGLYCERIN 30 GM TUBE TP SCH ×2 (10:18→21:23)
[2020-07-22] MEDS ORDERED: JEVITY 1.2 CAL 1,000 ML BOTTLE GT PRN (12:30)
[2020-07-22 15:15] LABS: *SPE A/G RATIO 1.2 (0.7-1.7); *SPE ALBUMIN 2.1 g/dL (2.9-4.4); *SPE ALPHA-1-GLOBULIN 0.3 g/dL (0.0-0.4); *SPE ALPHA-2-GLOBULIN 0.4 g/dL (0.4-1.0); *SPE BETA GLOBULIN 0.6 g/dL (0.7-1.3); *SPE GLOBULIN, TOTAL 1.8 g/dL (2.2-3.9); *SPE M-SPIKE Not Observed g/dL (Not Observed); *SPEGAMMA GLOBULIN 0.6 g/dL (0.4-1.8)
--- NOTE | 2020-07-22 15:51 | NUR ---
STEAM HAND NOTES PATIENT RESPIRATION DROPPING 86 TO 90, CHANGED TO NON BREATHING MASK, , PATIENT CONFUSED MUMBLING SELF, UNABLE TO VERBALIZED, BP 152/75, P-112, R-31, , O2-92AT THIS TIME NON BREATHING MASK. ASSIST TURN AND REPOSTION Q 2 HR. GTF INCREASED 40 ML/HR INTACT, PATIENT TOLERATED FEEDING WELL, KEEP HOB ELEVATED FOR ASPIRATION PRECAUTION.
--- NOTE | 2020-07-22 18:26 | NUR ---
INTERIOR MECHANIC NOTES PM CARE PROVIDED , DRESSING CHANGED ORDERED , DUE MEDICATION ADMINISTERED PATIENT ON NON REBREATHER MASK 8L, ASSIST TURN AND REPOSTION Q 2 HR, UA/UC COLLECTED. INFUSING JEVITY 40 ML/HR INTACT, KEEP HON ELEVATED. ENDORSED ONCOMING NURSE FOLLOW PLAN OF CARE.
[2020-07-22 18:34] LABS: APPEARANCE,URINE SL CLOUDY (CLEAR); BILIRUBIN,URINE MODERATE (NEGATIVE); BLOOD, URINE LARGE Ery/uL (NEGATIVE); COLOR,URINE YELLOW (YELLOW); KETONES,URINE TRACE (NEGATIVE); LEUKOCYTE ESTERASE ,URINE MODERATE (NEGATIVE); NITRITE, URINE POSITIVE (NEGATIVE); PH,URINE 5.5 (5.0-8.0); PROTEIN,URINE >=300 mg/dl (NEGATIVE); UGLUCOSE NEGATIVE (NEGATIVE); UROBILINOGEN,URINE 0.2 EU/dL (0.2)
[2020-07-22 18:48] LABS: BACTERIA,URINE 3+ /HPF (None Seen); RBC,URINE 21-50 /HPF (0-2); SQUAMOUS EPITHELIAL CELL,UR 0-2 /HPF (None Seen); WBC,URINE 21-50 /HPF (0-3); YEAST,URINE Many /HPF (None Seen)
--- NOTE | 2020-07-22 19:30 | NUR ---
RN NOTES PATIENT IS AWAKE ALERT ORIENTED X 1 EYES OPEN, VERBALLY RESPONSIVE, FOLLOWS COMMAND. ST ON TELE MONITOR. NO ACUTE RESPIRATORY DISTRESS. PATIENT ON O2 8LPM WITH NON REBREATHER MASK CHANGE IT TO SIMPLE MASK SATURATION ON 90%. PATIENT IS FOLLOWING COMMAND SOMETIME, NO FACIAL COMPLAINED OF PAIN. IV SITE ON PROMISE ML AND LFA G 20 HL INTACT AND PATENT. GTF JEVITY @ 35 ML/HR PATENCY CHECKED , KEPT HOB ELEVATED. KEPT PT CLEAN AND DRY. A PER DAY SHIFT PATIENT BLD. TRANSFUSION HELD FOR PATHOLOGY TO REVIEW THE PATIENT PREVIOUS REACTION. HGB 6.8 THIS MORNING. NO ACTIVE BLEEDING NOTED. NNO PER MD CLOSELY MONITOR FOR ANY SIGNIFICANT CHANGES. KEPT PT CLEAN AND DRY. WILL CONTINUE TO MONITOR.
[2020-07-23] VITALS (25 sets, daily range): BP systolic 51–164; BP diastolic 25–93
[2020-07-23] MEDS ORDERED: diphenhydrAMINE HCL 50 MG/ML VIAL IV ONE
--- NOTE | 2020-07-23 | NUR ---
RN NOTES DR. PETERSEN CALLED AND ASKED REGARDING PATIENT BLOOD TRANSFUSION STATUS, INFORMED MD THAT BLOOD AND PLATELET WAS NOT GIVEN YESTERDAY DUE TO PREVIOUS ALLERGIC REACTION OF THE PATIENT. PER MD SHE WILL ORDERED PLATELET WITH HD. NOTED AND CARRIED OUT ORDERS.
[2020-07-23 04:17] LABS: BASOPHILS % (AUTO) 0.6 % (0.0-2.0); EOSINOPHILS % (AUTO) 1.7 % (0.0-6.0); LYMPHOCYTES # (AUTO) 1.3 /CMM (0.8-4.8); LYMPHOCYTES % (AUTO) 17.8 % (20.0-44.0); MEAN CORPUSCULAR HGB CONC 34 g/dl (31.0-36.0); MEAN CORPUSCULAR VOLUME 98 fL (82-100); MONOCYTES # (AUTO) 0.7 /CMM (0.1-1.30); MONOCYTES % (AUTO) 9.9 % (2.0-12.0); NEUTROPHILS # (AUTO) 5.2 /CMM (1.8-8.9); WHITE BLOOD COUNT (AUTO) 7.4 K/uL (4.3-11.0)
[2020-07-23 04:29] LABS: CALCIUM, SERUM 7.6 mg/dL (8.5-10.1); CARBON DIOXIDE 29 mmol/L (21-32); CHLORIDE 110 mmol/L (98-107); CREATININE 1.5 mg/dL (0.6-1.3); GLUCOSE 166 mg/dL (74-106); MAGNESIUM 2.2 mg/dL (1.8-2.4); PHOSPHORUS 2.6 mg/dL (2.5-4.9); POTASSIUM 4.3 mmol/L (3.5-5.1); SODIUM SERUM 146 mmol/L (136-145); UREA NITROGEN, BLOOD 53 mg/dL (7-18)
--- NOTE | 2020-07-23 04:30 | NUR ---
RN NOTES PATIENT NOTED SATURATION IS CONSISTENTLY <90% (BETWEEN 86-88%)IN 30MINS. CHANGE DEVICE TO NON REBREATHER MASK @ 12 LPM SATURATION WENT UP TO 94% RIGHT AWAY. WILL CONT. TO MONITOR.
[2020-07-23 04:45] LABS: RED BLOOD CELL COUNT(AUTO) 1.97 MIL/uL (4.0-5.2)
[2020-07-23 04:47] LABS: HEMOGLOBIN 6.5 g/dL (11.5-14.8)
[2020-07-23 04:48] LABS: HEMATOCRIT 19 % (33-45); PLATELET COUNT (AUTO) 18 /CMM (150-450)
--- NOTE | 2020-07-23 05:52 | NUR ---
RN NOTES CALLED AND INFORMED DR. JAMES REGARDING CRITICAL VALUES OF HGB 6.5 AND PLATELET 18 WITH NNO AT THIS TIME PER MD TO DISCUSS TO MORNING PCP ABOUT THE RESULT AND TO CONSULT HEMATOLOGY. PATIENT ASLEEP AT THIS TIME WITH NON REBREATHER MASK NO ACTIVE BLEEDING PRESENT.
[2020-07-23 05:59] LABS: BAND % (MANUAL) 11 % (0.0-5.0); EOSINOPHILS % (MANUAL) 2 % (0-4); LYMPHOCYTES % (MANUAL) 18 % (16-48); METAMYELOCYTES % 2 % (0-0); MONOCYTES % (MANUAL) 7 % (0-11.0); NEUTROPHILS % (MANUAL) 60 (42-76)
[2020-07-23] MEDS ORDERED: IV NS 0.9% 250 ML IV PRN (06:30)
--- NOTE | 2020-07-23 07:00 | NUR ---
patient on nonrebreather mask 12L SPO2 96%, RR 25, even, unlabored. patient opens eyes to name and follows some command
--- NOTE | 2020-07-23 07:25 | NUR ---
RN NOTES ENDORSED TO AM SHIFT THAT DIALYSIS NURSE WILL CALL AT THE UNIT TO GIVE MEDICINE (TYLENOL & BENADRYL) PRIOR TO GIVE PLATELET. AND TO FOLLOW UP MD THAT PATIENT IS ALLERGIC TO ACETAMINOPHEN WHICH DR. PETERSEN ORDER IT. PATIENT REMAINED STABLE ON NON REBREATHER, ASLEEP AT THIS TIME. RIGHT WRIST RESTRAINT KEPT IN PLACED. PATIENT IS CLEAN AND DRY.
--- NOTE | 2020-07-23 08:34 | NUR ---
WOUND CARE CONSULT: PT PRESENTS WITH MULTIPLE SKIN ISSUES PRESENT ON ADMISSION INCLUDING SACRAL DEEP TISSUE INJURY IN EVOLUTION TO SACRUM WITH WOUND BED CHANGES TO INCLUDE NECROTIC TISSUE, MULTIPLE AREAS OF SKIN DISCOLORATION, LOWER EXTREMITY WOUNDS FOLLOWED BY DPM AND DRY CLOSED BLISTER TO RT RIB AREA. DEFER TO DPM FOR LOWER EXTREMITY WOUNDS. THERE IS INCONTINENCE ASSOCIATED SKIN DAMAGE TO RT POSTERIOR THIGH AND PERIANAL AREA. PT HAVING LOOSE STOOLS. THERE IS ALSO AREA OF VESICULAR SKIN LESIONS TO LEFT MEDIAL THIGH. RN TO DISCUSS WITH TODAY. MSG LEFT FOR DR CLARE ASHBY REGARDING WOUND CARE FOR SACRAL WOUND. ALL SKIN PROTECTION MEASURES IN PLACE AND DISCUSSED WITH NURSING STAFF. PT IS ON MEREDITH ISOFLEX LOW AIRLOSS BED. MD IN AGREEMENT WITH PLAN OF CARE. Addendum: 07/23/20 at 0844 by ERIKA GRULLONU Amended: Links added. Addendum: 07/23/20 at 0942 by ERIKA GRULLONU ADDITIONAL: DEVICE RELATED PARTIAL THICKNESS WOUND NOTED TO NASAL BRIDGE. PT WEARING OXYGEN MASK WITH FOAM DSG PROTECTION TO NASAL BRIDGE. DISCUSSED WOUND CARE AND SKIN PROTECTION RECOMMENDATIONS WITH NURSING STAFF AND Pravin COSTA IN AGREEMENT WITH PLAN OF CARE.
[2020-07-23] MEDS ORDERED: DAKINS QUARTER STRENGTH (0.125%) 480 ML BOTTLE TOP SCH (09:00)
--- NOTE | 2020-07-23 09:00 | NUR ---
patient deep suctioned by RT - 100mL thick light brown sputum obtained
[2020-07-23] MEDS: PROSOURCE / PROSTAT (PYXIS) 30 ML UDC GT SCH (09:32)
[2020-07-23] MEDS: PANTOPRAZOLE 40 MG/PACK PACK GT SCH (09:32)
[2020-07-23] MEDS: METOCLOPRAMIDE HCL 10 MG TABLET GT SCH (09:33)
[2020-07-23] MEDS: SILVER SULFADIAZINE CREAM 25 GM TUBE TP SCH (09:36)
[2020-07-23] MEDS: NITROGLYCERIN 30 GM TUBE TP SCH (09:38)
--- NOTE | 2020-07-23 10:50 | NUR ---
patient's breathing labored, accessory muscle use. RR 25, SPO2 96%. called RT -> placed on bipap & stat ABG done Addendum: 07/23/20 at 1136 by ROXIE HOFF RN additionally, less responsive, lethargic
[2020-07-23] MEDS ORDERED: NEOMY SULF/BACITRAC ZN/POLY 15 GM TUBE TP SCH (11:00)
[2020-07-23 11:06] LABS: ABG BASE EXCESS 0.1 mmol/L; ABG OXYGEN SATURATION 98.1 % (92.0-98.5); ABG PCO2 97.3 mmHg (35.0-45.0); ABG PO2 154.7 mmHg (75.0-100.0); COHb 2.6 % (0.5-1.5); MetHb 0.5 % (0.0-1.5); O2Hb 95.1 % (94.0-97.0); SITE, ABG Right Femoral; VENT MODE, BG BiPAP 15/5 (5 minutes)
--- NOTE | 2020-07-23 11:25 | NUR ---
Per Dr. Potter patient needs to be intubated. Family notified, they're okay with intubation, they want to speak to a doctor, contact information provided to Dr. Potter and Dr. Shepherd
--- NOTE | 2020-07-23 11:35 | NUR ---
RT Pt orally intubated with 7.0 ET tube secured at 21cm at the lip line. Positive CO2 color change noted, and equal bilateral breathe sounds and chest rise. Pt started on mechanical ventilation with noted settings. Vent alarms are set and audible with BVM by bedside. Dr. Hull notified and aware. Addendum: 07/23/20 at 1221 by ESTRELLA FERGUSON RT Amended: Links added.
--- NOTE | 2020-07-23 11:48 | NUR ---
s/p intubation by ER . ETT 7, 21@ lip. CXR ordered
[2020-07-23] MEDS ORDERED: PROPOFOL 100 ML IV PRN (12:00)
--- NOTE | 2020-07-23 12:07 | NUR ---
SPO2 70% , vent settings AC 20, 450, FiO2 100%, PEEP 10 MD aware, "give her some time" + orders for breathing tx
--- NOTE | 2020-07-23 12:21 | NUR ---
HD nurse at bedside
--- NOTE | 2020-07-23 12:43 | NUR ---
prior to HD BP 94/52, dropped SBP 50s-> order for kenrick and dialysis stopped
--- NOTE | 2020-07-23 12:54 | NUR ---
patient still SPO2 71%, AC 20, 450, FiO 100%, PEEP 10 -> orders to increase PEEP to [address] Hull
[2020-07-23] MEDS ORDERED: methylPREDNISolone SOD SUCC 125 MG/2ML VIAL IV SCH (13:00)
[2020-07-23] MEDS ORDERED: PHENYLEPHRINE 50 MG in IV NS 0.9% 245 ML IV PRN (13:00)
[2020-07-23] MEDS ORDERED: ALBUMIN 25% 25 GM in PREMIX 1 EA IV PRN (13:00)
--- NOTE | 2020-07-23 13:22 | NUR ---
per Sadiq Newman change code status to DNR
[2020-07-23] MEDS ORDERED: ACETAMINOPHEN 325 MG TABLET PO ONE ×2 (13:30)
[2020-07-23] MEDS ORDERED: ALBUTEROL FS 2.5 MG/3 ML VIAL.NEB NEB SCH (13:30)
[2020-07-23] MEDS ORDERED: NOREPINEPHRINE 32 MG in IV NS 0.9% 218 ML IV PRN (13:30)
[2020-07-23] MEDS ORDERED: ACETYLCYSTEINE 10% SOLN 400 MG/4 ML VIAL NEB SCH (13:30)
--- NOTE | 2020-07-23 13:35 | NUR ---
no dialysis per family. change in patient rhythm from ST 100s to bradycardic 30s. patient appears pale, no palpable pulses on carotid, brachial or radial confirmed by RT x2 + RN x1 and additionally auscultation of apical pulse by full charge bookkeeper
--- NOTE | 2020-07-23 13:45 | NUR ---
return of spontaneous circulation found. color returned, palpable pulse on carotid artery, BP reading, tele monitor ST 140s
--- NOTE | 2020-07-23 14:00 | NUR ---
patient's rhythm ST 140s -> bradycardiac 30s -> asystole. no palpable pulses on carotid artery, no pulse heard upon apical auscultation, patient pale
--- NOTE | 2020-07-23 14:22 | NUR ---
[id number] [place] from [facility]. primary, admitting and nursing sup notified
[2020-07-23] MEDS ORDERED: FEE EMEERGENCY 1 MIN EA MC ONE (14:58)
[2020-07-23] MEDS ORDERED: ETOMIDATE 2 MG/ML VIAL IV ONE (14:58)
--- NOTE | 2020-07-23 16:44 | NUR ---
nasal bridge wound not able to be obtained prior to patient , unstable hemodynamics Addendum: 07/23/20 at 1646 by ROXIE HOFF RN wound picture
== END 2020-07-23 14:00 | disposition expired | DRG 377 ==
LOC: ER 11:24 → TELE2 13:00 → TELE 07-15 16:58 → ICU 07-17 05:09
PROVIDERS: ADMIT Internal Medicine; ATTEND Student in an Organized Health Care Education/Training Program
PROC: 30233N1 Transfusion of Nonautologous Red Blood Cells into Peripheral Vein, Percutaneous Approach (ICD-10-PCS; principal; 2020-07-14)
PROC: 5A1D70Z Performance of Urinary Filtration, Intermittent, Less than 6 Hours Per Day (ICD-10-PCS; 2020-07-14)
PROC: 30233R1 Transfusion of Nonautologous Platelets into Peripheral Vein, Percutaneous Approach (ICD-10-PCS; 2020-07-17)
PROC: 5A09357 Assistance with Respiratory Ventilation, Less than 24 Consecutive Hours, Continuous Positive Airway Pressure (ICD-10-PCS; 2020-07-17)
PROC: 05H633Z Insertion of Infusion Device into Left Subclavian Vein, Percutaneous Approach (ICD-10-PCS; 2020-07-18)
PROC: B547ZZA Ultrasonography of Left Subclavian Vein, Guidance (ICD-10-PCS; 2020-07-18)
PROC: 0BH18EZ Insertion of Endotracheal Airway into Trachea, Via Natural or Artificial Opening Endoscopic (ICD-10-PCS; 2020-07-23)
PROC: 5A1935Z Respiratory Ventilation, Less than 24 Consecutive Hours (ICD-10-PCS; 2020-07-23)
DX: K92.2 Gastrointestinal hemorrhage, unspecified (principal); L89.153 Pressure ulcer of sacral region, stage 3; G93.41 Metabolic encephalopathy; N18.6 End stage renal disease; G82.50 Quadriplegia, unspecified; I21.A1 Myocardial infarction type 2; J96.01 Acute respiratory failure with hypoxia; J96.02 Acute respiratory failure with hypercapnia; I50.33 Acute on chronic diastolic (congestive) heart failure; I13.2 Hypertensive heart and chronic kidney disease with heart failure and with stage 5 chronic kidney disease, or end stage renal disease; E87.1 Hypo-osmolality and hyponatremia; D61.818 Other pancytopenia; D69.3 Immune thrombocytopenic purpura; E87.0 Hyperosmolality and hypernatremia; J90 Pleural effusion, not elsewhere classified; R18.8 Other ascites; N17.9 Acute kidney failure, unspecified; N39.0 Urinary tract infection, site not specified; D64.9 Anemia, unspecified; D69.6 Thrombocytopenia, unspecified; Z99.2 Dependence on renal dialysis; Z86.73 Personal history of transient ischemic attack (TIA), and cerebral infarction without residual deficits; E03.9 Hypothyroidism, unspecified; E78.5 Hyperlipidemia, unspecified; E83.39 Other disorders of phosphorus metabolism; E87.5 Hyperkalemia; I25.10 Atherosclerotic heart disease of native coronary artery without angina pectoris; F03.90 Unspecified dementia, unspecified severity, without behavioral disturbance, psychotic disturbance, mood disturbance, and anxiety; I48.91 Unspecified atrial fibrillation; R13.10 Dysphagia, unspecified; Z93.1 Gastrostomy status; N25.0 Renal osteodystrophy; D63.1 Anemia in chronic kidney disease; E88.09 Other disorders of plasma-protein metabolism, not elsewhere classified; S90.522A Blister (nonthermal), left ankle, initial encounter; X58.XXXA Exposure to other specified factors, initial encounter; Y93.9 Activity, unspecified; Y92.129 Unspecified place in nursing home as the place of occurrence of the external cause; K21.9 Gastro-esophageal reflux disease without esophagitis; K74.60 Unspecified cirrhosis of liver; M41.9 Scoliosis, unspecified; Z66 Do not resuscitate
CPT/HCPCS: 31720; 36415; 36600; 71045-TC; 76700-TC; 80048-TC; 80053-TC; 80061-TC; 80076-TC; 80202-TC; 81000-TC; 82232; 82248-TC; 82272-TC; 82728-TC; 82784; 82803-TC; 82962-TC; 83010; 83540-TC; 83615-TC; 83735-TC; 84100-TC; 84155; 84165; 84439-TC; 84443-TC; 84484-TC; 85025-TC; 85027-TC; 85045-TC; 85385-TC; 85610-TC; 85730-TC; 86022; 86140-TC; 86225; 86235; 86334; 86431-TC; 86803; 86850-TC; 86880-TC; 87040-TC; 87081-TC; 87086-TC; 87340; 90935-TC; 93307-TC; 94002-TC; 94799-TC; A4216; A4624; A6253; A6403; G0378; J0282; J1160; J1200; J1940; J1956; J2370; J3370; J3475; J3490; J7030; J7040; J7050; J7060; J7070; J8597; P9016-BL; P9034-BL; P9047; U0003